=== PATIENT | female | born 1960 | race Caucasian/White ===

== ENCOUNTER 2016-06-26 13:16 | Inpatient (IN) | payer OTHER ==
[2016-06-26] MEDS ORDERED: NS 0.9% 1000 ML* 1,000 ML IV ONE (15:36)
[2016-06-26 16:26] LABS: Hematocrit 31 % (35-47); Hemoglobin 10.2 g/dl (12.0-16.0); Mean Corpuscular HGB Conc 33 g/dl (31-36); Mean Corpuscular Hemoglobin 31 pg (27-31); Mean Corpuscular Volume 93 fL (80-97); Mean Platelet Volume 10 um3 (7.4-10.4); Red Cell Distribution Width 23 % (10.5-15); White Blood Count 6.8 10^3/ul (3.5-10.8)
--- NOTE | 2016-06-26 16:27 | RAD ---
INDICATION: Hypoxia, tachycardia and possible pneumonia COMPARISON: Most recent comparison chest x-rays dated June 25, 2013 TECHNIQUE: Single AP portable view of the chest was obtained. FINDINGS: Image quality is compromised due to the relative inferiority of a portable chest x-ray. The heart and mediastinum exhibit normal size and contour. The lungs are grossly clear. There is no evidence of a large pleural effusion. Visualized bones are normal for the patient's age. IMPRESSION: No radiographic evidence for acute cardiopulmonary abnormality on this portable chest x-ray.
[2016-06-26 16:32] LABS: Add Diff/Slide Review? Slide Review Added; Comments Flag Yes
[2016-06-26 16:39] LABS: Albumin 3.8 g/dL (3.2-5.2); BUN/Creatinine Ratio 13.1 (8-20); EGFR African American 24.7 (>60); EGFR Non-African American 19.2 (>60); Globulin 4.2 g/dL (2-4); Potassium 3.4 mmol/L (3.5-5.0); Total Bilirubin 3.6 mg/dL (0.2-1.0)
[2016-06-26 16:48] LABS: Calcium 16.4 mg/dL (8.6-10.3)
[2016-06-26] MEDS ORDERED: NS 0.9% 1000 ML* 2,000 ML IV ONE (18:04)
[2016-06-26] MEDS ORDERED: Ondansetron INJ* 2 MG/ML VIAL IV PRN (18:10)
[2016-06-26] MEDS ORDERED: NS 0.9% 1000 ML* 1,000 ML IV SCH (18:15)
[2016-06-26] MEDS ORDERED: Calcitonin (Salmon) INJ* 200 UNITS/ML 2 ML VIAL SUBCUT ONE (18:16)
[2016-06-26] MEDS ORDERED: Zoledronic Acid* 4 MG in NS 0.9% 100 ML* 95 ML IVPB ONE (18:17)
[2016-06-26 18:19] LABS: Calcium (PTH Intact) 16.1 mg/dL (8.6-10.3)
[2016-06-26] MEDS ORDERED: NS 0.9% 100 ML* 100 ML ONE (18:25)
--- NOTE | 2016-06-26 19:22 | RAD ---
INDICATION: Acute kidney injury COMPARISON: CT abdomen pelvis dated May 13, 2016 that demonstrated mild left-sided hydronephrosis most likely related to sigmoid diverticulitis. TECHNIQUE: Real-time ultrasound examination of the bilateral kidneys including grayscale and Doppler color flow analysis. FINDINGS: Bilaterally the kidneys are normal in size and echogenicity. There are no hypervascular renal masses. There are no renal calculi or hydronephrosis identified. IMPRESSION: Normal ultrasound of the kidneys.
[2016-06-26 19:32] LABS: Urine Bacteria Absent (Absent); Urine Bilirubin Negative (Negative); Urine Glucose Negative (Negative); Urine Nitrite Negative (Negative)
[2016-06-26] MEDS ORDERED: PAMIDRONATE IVPB ONE (20:00)
[2016-06-26] MEDS ORDERED: NS 0.9% IVPB ONE (20:00)
[2016-06-26] MEDS: Gabapentin CAP(*) 100 MG PO PRN (20:17)
--- NOTE | 2016-06-26 21:16 | ED ---
Rock Betancourt Anna, scribed for Axel Can MD on 06/26/16 at 1537 . Lower Extremity - HPI Summary HPI Summary: Patient is a 55 y/o female coming to [facility] presenting status post ostomy one month ago. In April she was admitted here for complications from her diverticulitis before being transferred for her ostomy. She went to [facility] for rehabilitation but did not want to be there so went home. She had difficulty voiding and had a catheter at [facility] but reports that her urination is back to normal at this time. Her feet and legs have been intermittently painful since one month ago, and she has not been ambulating because of the pain. She has an abd wound healing following the surgery. She has had a decreased appetite and developed body weakness. She has lost at least 12 lbs since her surgery. Denies fever, new pains, PNA, UTI. Her daughter reports that the patients HR has been about 110 at baseline. Her history is significant for developmental disability. - History of Current Complaint Chief Complaint: EDGeneral Stated Complaint: POSS FAILURE TO THRIVE Time Seen by Provider: 06/26/16 15:17 Hx Obtained From: Patient, Family/Live Games Dealer - Accompanied by daughter, health care proxy Pain Intensity: 0 - Allergies/Home Medications Allergies/Adverse Reactions: Allergies Allergy/AdvReac Type Severity Reaction Status Date / Time No Known Allergies Allergy Verified 06/26/16 13:25 Home Medications: Home Medications Docusate Sodium [Colace] 100 mg PO DAILY 06/26/16 [History Confirmed 06/26/16] Gabapentin CAP(*) [Neurontin 100 mg CAP(*)] 100 mg PO TID PRN 06/26/16 [History Confirmed 06/26/16] PMH/Surg Hx/FS Hx/Imm Hx Previously Healthy: No - Immunosuppression Endocrine/Hematology History: Reports: Hx Anemia - aplastic anemia Denies: Hx Diabetes, Hx Thyroid Disease Cardiovascular History: Reports: Hx Hypercholesterolemia, Hx Hypertension - On medication Denies: Hx Deep Vein Thrombosis Respiratory History: Denies: Hx Asthma, Hx Chronic Obstructive Pulmonary Disease (COPD) GI History: Reports: Hx Diverticulosis - diverticulitis Denies: Hx Gastrointestinal Bleed, Hx Ulcer Musculoskeletal History: Reports: Hx Orthopedic Injury - L shoulder injury w/ surgery Denies: Hx Arthritis, Hx Osteoporosis Sensory History: Reports: Hx Contacts or Glasses Opthamlomology History: Reports: Hx Contacts or Glasses Psychiatric History: Reports: Hx Anxiety - situational, Hx Depression - Cancer History Hx Chemotherapy: No Hx Radiation Therapy: No - Surgical History Surgery Procedure, Year, and Place: shoulder, port Hx (removed) Infectious Disease History: Yes Infectious Disease History: Reports: Hx of Known/Suspected MRSA Denies: Hx Clostridium Difficile, Hx Hepatitis, Hx Human Immunodeficiency Virus (HIV), Hx Shingles, Hx Tuberculosis, Traveled Outside the [place] in Last 30 Days - Family History Known Family History: Positive: Hypertension, Diabetes - Social History Occupation: Disabled Lives: With Family Alcohol Use: None Substance Use Type: Reports: None Smoking Status (MU): Former Smoker Review of Systems Positive: Other - decreased appetite, unintentional weight loss. Negative: Fever Positive: other - difficulty voiding, since resolved Positive: Myalgia Positive: Other - Reported healing wound on abd Positive: Weakness All Other Systems Reviewed And Are Negative: Yes Physical Exam - Summary Physical Exam Summary: General: Comfortable, pleasant, generally alert, mildly diffusely weak HEENT: Mucosa extremely dry Neck: Soft, supple, no adenopathy, no edema Heart: No murmurs, rubs, gallops, HR 110. Pulses bilaterally symmetric. Lungs: Clear, breathing comfortably, no wheezes or rales Abd: Softly distended Extremities: No edema, no calf tenderness Skin: No rashes, no ulcerations Neuro: Alert & oriented x3 Psych: Logical, coherent Triage Information Reviewed: Yes Vital Signs On Initial Exam: Initial Vitals Temp Pulse Resp BP Pulse Ox 98.4 F 113 19 119/75 96 06/26/16 13:19 06/26/16 13:19 06/26/16 13:19 06/26/16 13:19 06/26/16 13:19 Vital Signs Reviewed: Yes Diagnostics - Vital Signs Vital Signs Temp Pulse Resp BP Pulse Ox 06/26/16 14:29 109 17 123/79 97 06/26/16 13:19 98.4 F 113 19 119/75 96 - Laboratory Lab Results: Lab Results 06/26/16 06/26/16 06/26/16 Range/Units 16:00 16:00 16:00 WBC 6.8 (3.5-10.8) 10^3/ul RBC 3.30 L (4.0-5.4) 10^6/ul Hgb 10.2 L (12.0-16.0) g/dl Hct 31 L (35-47) % MCV 93 (80-97) fL MCH 31 (27-31) pg MCHC 33 (31-36) g/dl RDW 23 H (10.5-15) % Plt Count 75 L (150-450) 10^3/ul MPV 10 (7.4-10.4) um3 Neut % (Auto) 77.6 (38-83) % Lymph % (Auto) 9.6 L (25-47) % [facility] % (Auto) 12.3 H (1-9) % Eos % (Auto) 0.3 (0-6) % Baso % (Auto) 0.2 (0-2) % Absolute Neuts (auto) 5.2 (1.5-7.7) 10^3/ul Absolute Lymphs (auto) 0.6 L (1.0-4.8) 10^3/ul Absolute Monos (auto) 0.8 (0-0.8) 10^3/ul Absolute Eos (auto) 0 (0-0.6) 10^3/ul Absolute Basos (auto) 0 (0-0.2) 10^3/ul Absolute Nucleated RBC 0 10^3/ul Nucleated RBC % 0 Hem Pathologist Commnt Pending Sodium 138 (133-145) mmol/L Potassium 3.4 L (3.5-5.0) mmol/L Chloride 91 L (101-111) mmol/L Carbon Dioxide 38 H (22-32) mmol/L Anion Gap 9 (2-11) mmol/L BUN 34 H (6-24) mg/dL Creatinine 2.60 H (0.51-0.95) mg/dL Est GFR ( Amer) 24.7 (>60) Est GFR (Non-Af Amer) 19.2 (>60) BUN/Creatinine Ratio 13.1 (8-20) Glucose 103 H (70-100) mg/dL Lactic Acid 1.0 (0.5-2.0) mmol/L Calcium 16.4 H* (8.6-10.3) mg/dL Total Bilirubin 3.60 H (0.2-1.0) mg/dL AST 30 (13-39) U/L ALT 10 (7-52) U/L Alkaline Phosphatase 84 (34-104) U/L Total Protein 8.0 (6.4-8.9) g/dL Albumin 3.8 (3.2-5.2) g/dL Globulin 4.2 H (2-4) g/dL Albumin/Globulin Ratio 0.9 L (1-3) PTH Intact (1.3-9.3) pmol/L Calcium (PTH Intact) (8.6-10.3) mg/dL 06/26/16 Range/Units 16:00 WBC (3.5-10.8) 10^3/ul RBC (4.0-5.4) 10^6/ul Hgb (12.0-16.0) g/dl Hct (35-47) % MCV (80-97) fL MCH (27-31) pg MCHC (31-36) g/dl RDW (10.5-15) % Plt Count (150-450) 10^3/ul MPV (7.4-10.4) um3 Neut % (Auto) (38-83) % Lymph % (Auto) (25-47) % [facility] % (Auto) (1-9) % Eos % (Auto) (0-6) % Baso % (Auto) (0-2) % Absolute Neuts (auto) (1.5-7.7) 10^3/ul Absolute Lymphs (auto) (1.0-4.8) 10^3/ul Absolute Monos (auto) (0-0.8) 10^3/ul Absolute Eos (auto) (0-0.6) 10^3/ul Absolute Basos (auto) (0-0.2) 10^3/ul Absolute Nucleated RBC 10^3/ul Nucleated RBC % Hem Pathologist Commnt Sodium (133-145) mmol/L Potassium (3.5-5.0) mmol/L Chloride (101-111) mmol/L Carbon Dioxide (22-32) mmol/L Anion Gap (2-11) mmol/L BUN (6-24) mg/dL Creatinine (0.51-0.95) mg/dL Est GFR ( Amer) (>60) Est GFR (Non-Af Amer) (>60) BUN/Creatinine Ratio (8-20) Glucose (70-100) mg/dL Lactic Acid (0.5-2.0) mmol/L Calcium (8.6-10.3) mg/dL Total Bilirubin (0.2-1.0) mg/dL AST (13-39) U/L ALT (7-52) U/L Alkaline Phosphatase (34-104) U/L Total Protein (6.4-8.9) g/dL Albumin (3.2-5.2) g/dL Globulin (2-4) g/dL Albumin/Globulin Ratio (1-3) PTH Intact 3.6 (1.3-9.3) pmol/L Calcium (PTH Intact) 16.1 H* (8.6-10.3) mg/dL Result Diagrams: 06/26/16 16:00 06/26/16 16:00 Lab Statement: Any lab studies that have been ordered have been reviewed, and results considered in the medical decision making process. - Radiology CXR Xray Interpretation: No Acute Changes Radiology Interpretation Completed By: Radiologist - IMPRESSION: No radiographic evidence for acute cardiopulmonary abnormality on this portable chest x-ray. Re-Evaluation - Re-Evaluation First Eval Re-Evaluation Time: 16:27 Change: Unchanged Comment: We questioned her as to her decision-making capacity and probed whether or not she understood the relationship of dangers at home potentially causing harm. We specifically asked about the latest incident of almost falling yesterday, and she did not seem to realize that falls could be dangerous. She perseverated, saying she "never falls" and "bad things never happen." Again, we asked her what she would have done should she have fallen and her daughter was not there to catch her. She states there is no way to get up, she simply would have "reached for the couch." She denies having life alert or a phone she carries on her person 24 hours a day and also could not explicitly express the relationships and the dangers of falling and injuring herself. Her daughter is present, who is her proxy, and she states that she highly suggests we admit the patient. The daughter who lives with her is very worried and said she "should not be home." The visiting nurse who visits three times a week initiated this and recommended that the patient be admitted. We referenced the consultation on 05/14/[address] Valderrama who did believe she had decision-making capacity. We would like to honor that if at all ethically possilbe. However, conditions of patients and decision-making capacities can change. At this time, I feel the patient could very well be putting herself in serious harm should she make the error of going home. There may be an element of anxiety and depression as well, which further muddies the water and complicates things. This is a difficult case , and the answers sometimes aren't easy to elucidate. However, I do feel that this is in the best interest of the pt. O2 sat on RA 99%. HR mid-90s w/o intervention. HR on last admission noted to be elevated as well. Lower Extremity Course/Dx - Course Assessment/Plan: She has been doing poorly at home according to the visiting nurse and both her doctors. She is a complicated patient with ongoing symptoms of depression, as well as chronic conditions and now an ostomy which she is apparently having trouble managing. She nearly had a fall yesterday. She apparently is very weak and is not eating well on her own. Her calcium was markedly elevated. This may be part of the problem or simply a lab error. - Diagnoses Provider Diagnoses: Hypercalcemia, PAULY (acute kidney injury), Weakness - Physician Notifications Discussed Care of Patient With: Dr. Miller (hospitalist) at 1702. Agrees to accept patient for admission. - Critical Care Time Critical Care Time: 30-74 min - 30 minutes Discharge - Discharge Plan Condition: Guarded Disposition: ADMITTED TO [facility] The documentation as recorded by the Rock roy Anna accurately reflects the service I personally performed and the decisions made by me, Axel Can MD.
[2016-06-26] MEDS: Gemfibrozil TAB* 600 MG PO SCH (21:59)
[2016-06-26] MEDS: Heparin VIAL(*) 5000 UNITS/ML VIAL (FIVE THOUSAND) SUBCUT SCH (22:01)
[2016-06-26] MEDS: cycloSPORINE Modified CAP(*) 100 MG PO SCH (22:03)
[2016-06-26 22:23] LABS: BUN/Creatinine Ratio 12.8 (8-20); EGFR African American 26.8 (>60); EGFR Non-African American 20.8 (>60); Potassium 2.9 mmol/L (3.5-5.0); Total Bilirubin 3.4 mg/dL (0.2-1.0)
[2016-06-26 22:26] LABS: Calcium 14.8 mg/dL (8.6-10.3)
--- NOTE | 2016-06-26 22:41 | HP ---
HISTORY AND PHYSICAL: DATE OF ADMISSION: 06/26/16 PRIMARY CARE PHYSICIAN: Gordo Johnson MD. CHIEF COMPLAINT: General decline. HISTORY OF PRESENT ILLNESS: Ms. Baker is a 55-year-old female with a past medical history of aplas tic anemia, hypertension, depression, hyperlipidemia, developmental delay, and relatively recent div erticulitis with phlegmon formation with surgery and ostomy placement in [facility] wh o presents to the hospital with a general decline. The patient seems a bit confused and extremely i rritated at my questioning. The majority of the history is obtained from the patient's daughter, Aminata ferrara. This is not the daughter that the patient lives with who is also developmentally delayed. Nicole states that the patient was discharged from [facility] and was at [facility] or rehabilitation and states that the surgery went well at the [facility] and at the end of the hospitalization, the patient had completed antibiotics and was eating and had a good appetite. Afte r being at [facility] for a few days, the patient checked out early, somewhere around June 04. Unfortunately, the patient's daughter who I was speaking with kristyn, Nicole, was out of town at that time and did not have any input. She states that since her mother has been home, she has been slowly declining. She states despite VNS coming multiple times a week to check the patient's ostomy , it seems that she is unable to care for herself. She has been having very little p.o. intake, bot h food and drink, and suspects that her mother has lost a significant amount of weight as well. Tracey arriaza states that the patient was 154 pounds just prior to the surgery, states that 10 days ago at a doctor's appointment, she was 140 pounds and now seems to be 134 pounds here in our emergency depar tment. The patient has also been extremely weak and has had a lot of difficulty getting around the house and she is mostly not walking at this point. The patient herself denies any fever, chills, ab dominal pain, nausea, vomiting, dysuria. Has had decreased output from her ostomy. Denies any back pain. Daughter, Nicole, states that it is difficult to tell if the patient is more confused than usual as her baseline is not great. In the emergency department, routine blood work showed that th e patient had a calcium of 16.4 and acute on chronic renal failure and the hospitalist service was c onsulted to consider the patient for admission. PAST MEDICAL HISTORY: 1. Aplastic anemia, currently on cyclosporin and Promacta. 2. Hypertension. 3. Depression. 4. Hyperlipidemia. 5. Diverticulitis. PAST SURGICAL HISTORY: 1. Ostomy placement for diverticulitis and presumed partial colectomy. 2. Left shoulder surgery. HOME MEDICATIONS: 1. Gabapentin 100 mg 3 times daily with an additional 200 mg at night as needed. 2. Colace 100 mg by mouth 3 times daily. 3. Gemfibrozil 600 mg by mouth 2 times daily. 4. Cyclosporin 100 mg by mouth 2 times daily. 5. Valacyclovir 500 mg by mouth daily. 6. Promacta 75 mg by mouth daily. ALLERGIES: The patient reports no known drug allergies. FAMILY HISTORY: Significant for her father with CAD, mother with diabetes and unknown cancer. SOCIAL HISTORY: The patient is a former smoker, quit at the age of 31. Denies any alcohol or illic it drug use. Lives at home with her developmentally disabled daughter. Her other daughter who is h ere, Nicole, is her decision maker. REVIEW OF SYSTEMS: A 12-point review of systems negative except for that as noted in the HPI. PHYSICAL EXAMINATION GENERAL: The patient is a middle-aged female, appears older than stated age, lying in bed in no apparent distress. VITAL SIGNS: On admission, temperature 98.4, heart rate of 113, respiratory rate of 19, O2 saturati on 96% on room air; however, the patient is currently needing OxyMask at 2 L. Blood pressure 119/75 . HEENT: Dry mucous membrane. Dry chocolate pudding on the patient's lips and tongue. Pupils equal, round, reactive to light and accommodation. NECK: No cervical adenopathy. LUNGS: Clear to auscultation bilaterally. No wheezes, rales, or rhonchi. CARDIOVASCULAR: Regular rate and rhythm. S1 and S2 present. No murmurs, gallops, or rubs. ABDOMEN: Soft, nontender, nondistended. The patient has a midline scar that is well healed for the most part. There is a small area in the periumbilical region that is still open and packed without drainage. Ostomy is in place and appears clean, dry, and intact with a minimal amount of stool in it. EXTREMITIES: No cyanosis, clubbing, or edema. Feet are tender to palpation. NEUROLOGIC: The patient is alert, oriented to self, place. Had difficulty with the year, was able to tell me the month, but not the day of the week. Very agitated. No focal neurological deficits. LABS AND DIAGNOSTICS: White blood cell count of 6.8, hematocrit of 31, platelets of 75. Sodium of 138, potassium of 3.4, chloride of 91, carbon dioxide of 38, BUN of 34, creatinine of 2.6, glucose of 103, lactic acid of 1.0, calcium of 16.4. Total bilirubin of 3.6. AST of 30, ALT of 10, alk phos of 84. Albumin of 3.8. Chest x-ray personally reviewed shows no acute disease. EKG is not yet done and we will order. ASSESSMENT AND PLAN: Hypercalcemia in the setting of general decline, decreased p.o. intake, acute kidney injury on chronic kidney disease in a 55-year-old female with a past medical history of aplas tic anemia, on immunosuppressant medications; hypertension; depression; hyperlipidemia; and recent d iverticulitis with presumed partial colectomy and ostomy placement. 1. Hypercalcemia: The patient has severe hypercalcemia. It seems that she has always had mild to moderate with recent levels in the 10 to 12 range; however, never as high as 16. We will check a st at ionized calcium. We will also check a PTH. The patient received 1 L of IV fluids in the emergen cy department. We will give another 2 L bolus now and run fluids overnight at 200 cc an hour. I lloyd ve also ordered calcitonin and zoledronic acid to try to lower the calcium. Hold off on any diureti cs for now. We will also check PTH-related peptide, vitamin D levels, SPEP, UPEP. We will recheck serum calcium now to ensure it is elevated and again tomorrow. 2. Acute kidney injury on chronic kidney disease: Suspect this is likely due to the patient's sign ificant dehydration. Creatinine is 2.6, seems that her baseline is around 1.3 to 1.5. We will chec k renal ultrasound with her recent ureteral issues with the inflammation from the diverticulitis to ensure there is no hydronephrosis. We will check a urine sodium and urine creatinine as well. Monit or her BMP daily. We will place a Browne for strict I's and O's. 3. Hyperbilirubinemia: Total bilirubin is 3.6. The patient has no right upper quadrant pain and t he rest of her LFTs are normal. We will fractionate the bilirubin and recheck in the morning. Hold on any imaging for now. 4. Aplastic anemia: Continue the patient's home cyclosporin, Promacta, and valacyclovir. 5. Hyperlipidemia: Continue the patient's home gemfibrozil. 6. DVT prophylaxis: Heparin subcu. 7. Disposition: It seems that the patient is not safe at home. She is living with a daughter that is developmentally delayed and does not seem to be able to help out as much as the patient needs, e specially now that she has an ostomy. I suspect she will likely need at least short term, if not lo ng term higher level of care. I placed a social work consult and a PT consult. 8. Code status: The patient is a full code. TIME SPENT: Total time spent on this admission, 55 minutes with over half the time spent face-to-fa ce with the patient counseling and coordinating care. [id number]/CPS #: [id number]
[2016-06-26] MEDS ORDERED: HYDROmorphone INJ* 1 MG/ML CARPUJECT SYRINGE IV ONE (23:50)
[2016-06-27] MEDS: NS 0.9% 1000 ML* 1,000 ML IV SCH ×2 (02:28→08:22)
[2016-06-27] MEDS: Heparin VIAL(*) 5000 UNITS/ML VIAL (FIVE THOUSAND) SUBCUT SCH ×3 (05:05→21:13)
[2016-06-27 08:01] LABS: Hematocrit 28 % (35-47); Mean Corpuscular HGB Conc 32 g/dl (31-36); Mean Corpuscular Hemoglobin 31 pg (27-31); Mean Corpuscular Volume 96 fL (80-97); Mean Platelet Volume 9 um3 (7.4-10.4); Red Blood Count 2.93 10^6/ul (4.0-5.4); Red Cell Distribution Width 24 % (10.5-15); White Blood Count 6.2 10^3/ul (3.5-10.8)
[2016-06-27 08:02] LABS: Add Diff/Slide Review? Slide Review Added; Comments Flag Yes
[2016-06-27 08:11] LABS: Albumin 3.3 g/dL (3.2-5.2); BUN/Creatinine Ratio 12.5 (8-20); Calcium 12.7 mg/dL (8.6-10.3); EGFR African American 31.9 (>60); EGFR Non-African American 24.8 (>60); Globulin 3.5 g/dL (2-4); Potassium 3.1 mmol/L (3.5-5.0); Total Bilirubin 2.8 mg/dL (0.2-1.0); Total Protein 6.8 g/dL (6.4-8.9)
[2016-06-27] MEDS: Gemfibrozil TAB* 600 MG PO SCH ×2 (09:00→21:07)
[2016-06-27] MEDS ORDERED: Docusate CAP* 100 MG PO SCH (09:00)
[2016-06-27] MEDS: ValACYclovir (*) 500 MG TAB PO SCH (09:00)
[2016-06-27 09:02] LABS: Direct Bilirubin 1.5 mg/dL (0.03-0.18)
[2016-06-27] MEDS: cycloSPORINE Modified CAP(*) 100 MG PO SCH ×2 (09:03→21:07)
[2016-06-27] MEDS: ELTROMBOPAG 75 MG PO SCH (09:03)
[2016-06-27] MEDS: Gabapentin CAP(*) 100 MG PO PRN ×3 (09:15→22:40)
[2016-06-27] MEDS: Potassium Chlor TAB* 20 MEQ TAB.ER PO SCH ×3 (13:46→17:56)
--- NOTE | 2016-06-27 14:03 | PN ---
Subjective Date of Service: 06/27/16 Interval History: Patient seen early this afternoon. Has not been taking much PO. Denies pain, discomfort, SOB. Had tennis-ball sized hard stool that dislodged her ostomy. Erroneous temperature this AM, not febrile. Family History: Unchanged from Admission Social History: Unchanged from Admission Past Medical History: Unchanged from Admission Objective Active Medications: Cyclosporine (Modified) (Neoral Cap(*)) 100 mg PO BID SONNY Docusate Sodium (Colace Cap*) 100 mg PO DAILY SONNY Eltrombopag (Promacta (Nf)) 75 mg PO DAILY SONNY Gabapentin (Neurontin Cap(*)) 100 mg PO TID PRN Gemfibrozil (Lopid Tab*) 600 mg PO BID SONNY Heparin Sodium (Porcine) (Heparin Vial(*)) 5,000 units SUBCUT Q8HR SONNY Sodium Chloride (Ns 0.9% 1000 Ml*) 1,000 mls @ 200 mls/hr IV PER RATE SONNY Ondansetron HCl (Zofran Inj*) 4 mg IV Q4H PRN Polyethylene Glycol/Electrolytes (Miralax*) 17 gm PO DAILY SONNY Potassium Chloride (Klor Con Er Tab*) 40 meq PO Q2H SONNY Senna (Senokot Tab*) 1 tab PO DAILY SONNY Valacyclovir HCl (Valtrex 500 Mg (*)) 500 mg PO DAILY [facility] Vital Signs 06/26/16 06/26/16 06/26/16 18:00 19:00 20:17 Temperature Pulse Rate 93 99 Respiratory 13 14 18 Rate Blood Pressure 131/92 150/87 (mmHg) O2 Sat by Pulse 100 100 Oximetry 06/27/16 06/27/16 06/27/16 09:15 11:15 11:20 Temperature 101.8 F Pulse Rate 100 Respiratory 15 18 16 Rate Blood Pressure 131/85 (mmHg) O2 Sat by Pulse 93 Oximetry Oxygen Devices in Use Now: None Appearance: Middle-aged, F, laying in bed in NAD Eyes: No Scleral Icterus Ears/Nose/Mouth/Throat: - - Dry MM Neck: NL Appearance and Movements; NL JVP Respiratory: Symmetrical Chest Expansion and Respiratory Effort, Clear to Auscultation Cardiovascular: NL Sounds; No Murmurs; No JVD, - - Mild tachycardia Abdominal: - - Soft, non-tender, non-distended, midline incision, dressing place , ostomy without pouch in place, no signs of infection Lymphatic: No Cervical Adenopathy Extremities: No Edema Skin: No Rash or Ulcers Neurological: - - Alert, oriented, no focal deficits Result Diagrams: 06/27/16 07:38 06/27/16 07:38 Additional Lab and Data: Assess/Plan/Problems-Billing Assessment: Hypercalcemia, PAULY on CKD, FTT in a 55 yo F with hx of aplastic anemia on immunosuppressants, depression, HLD, recent diverticulitis with phlegmon and partial colectomy with ostomy placement - Patient Problems (1) Hypercalcemia Current Visit: Yes Comment: S/P calcitonin and pamidoronate. Continue aggressive IVF at 200 cc/hr. PTH WNL, 25-OH WNL. PTHrP, SPEP, UPEP pending. Calcium trending down closer to patient's baseline. (2) PAULY (acute kidney injury) Current Visit: Yes Comment: BUN/creatinine improving with IVF. Continue to monitor daily. Continue doss catheter for strict I/O. Renal US unremarkable. (3) Hyperbilirubinemia Current Visit: Yes Comment: Tbili improving, hold on imaging. Fractionate. (4) Aplastic anemia Current Visit: No Comment: continue cyclosporine & eltrombopag (5) HLD (hyperlipidemia) Current Visit: Yes Comment: Continue gemfibrozil (6) Failure to thrive Current Visit: Yes Comment: Will check prealbumin. Patient says "I wish everyone would stop trying to force food down my throat". Consider palliative care consult pending on how the next days go Status and Disposition: Will need MOO
[2016-06-27] MEDS: Senna TAB PO SCH (15:27)
[2016-06-28] MEDS: Gabapentin CAP(*) 100 MG PO PRN ×2 (04:30→14:26)
[2016-06-28 05:52] LABS: Hematocrit 28 % (35-47); Hemoglobin 9.2 g/dl (12.0-16.0); Mean Corpuscular HGB Conc 33 g/dl (31-36); Mean Corpuscular Hemoglobin 31 pg (27-31); Mean Corpuscular Volume 92 fL (80-97); Mean Platelet Volume 9 um3 (7.4-10.4); Red Blood Count 2.99 10^6/ul (4.0-5.4); White Blood Count 6.3 10^3/ul (3.5-10.8)
[2016-06-28 06:04] LABS: Add Diff/Slide Review? Slide Review Added; Comments Flag Yes; Red Cell Distribution Width 23 % (10.5-15)
[2016-06-28 06:07] LABS: BUN/Creatinine Ratio 11.6 (8-20); EGFR Non-African American 32.6 (>60); Globulin 3.4 g/dL (2-4); Potassium 3.6 mmol/L (3.5-5.0); Total Bilirubin 3.5 mg/dL (0.2-1.0); Total Protein 6.4 g/dL (6.4-8.9)
[2016-06-28] MEDS: Heparin VIAL(*) 5000 UNITS/ML VIAL (FIVE THOUSAND) SUBCUT SCH ×3 (06:29→21:08)
--- NOTE | 2016-06-28 10:32 | PN ---
Progress Note - Progress Note SOAP: ID: 55 year old with long standing aplastic anemia, stable on cyclosporine and eltrombopag. Course c/b diverticulitis and abscess s/p colostomy. Now admitted hyperglycemia. Subjective: []Feels very poorly. Stomach hurts and not eating. No other pain. No nausea today. Frustrated and not willing to answer very many questions. She is oriented to [facility] and month, not day. Does not understand why she is in hospital other then stomach hurts. Cyclosporine (Modified) (Neoral Cap(*)) 100 mg PO BID [facility] Last Admin: 06/27/16 21:07 Dose: 100 mg Docusate Sodium (Colace Cap*) 100 mg PO DAILY [facility] Eltrombopag (Promacta (Nf)) 75 mg PO DAILY [facility] Last Admin: 06/27/16 09:03 Dose: 75 mg Gabapentin (Neurontin Cap(*)) 100 mg PO TID PRN PRN Reason: PAIN Last Admin: 06/28/16 04:30 Dose: 100 mg Gemfibrozil (Lopid Tab*) 600 mg PO BID [facility] Last Admin: 06/27/16 21:07 Dose: 600 mg Heparin Sodium (Porcine) (Heparin Vial(*)) 5,000 units SUBCUT Q8HR [facility] Last Admin: 06/28/16 06:29 Dose: 5,000 units Sodium Chloride (Ns 0.9% 1000 Ml*) 1,000 mls @ 200 mls/hr IV PER RATE [facility] Last Admin: 06/27/16 08:22 Dose: 200 mls/hr Ondansetron HCl (Zofran Inj*) 4 mg IV Q4H PRN PRN Reason: NAUSEA/VOMITING Polyethylene Glycol/Electrolytes (Miralax*) 17 gm PO DAILY [facility] Senna (Senokot Tab*) 1 tab PO DAILY [facility] Last Admin: 06/27/16 15:27 Dose: 1 tab Valacyclovir HCl (Valtrex 500 Mg (*)) 500 mg PO DAILY [facility] PRN Reason: Protocol Last Admin: 06/27/16 09:00 Dose: 500 mg Objective: [] Vital Signs Temp Pulse Resp BP Pulse Ox 98.7 F 104 18 139/94 96 06/28/16 03:50 06/28/16 03:50 06/28/16 06:30 06/28/16 03:50 06/28/16 03:50 HEENT - Pale and dried blood on teeth, lips. No clear oral lesions, no thrush CTA RRR S1S2, Tachy Has BS, liquid stool in colostomy, tender but no rebound. Could not feel spleen but exam limited. Ext - no edema Neuo - as above and gross non focal. Assessment: [] 55 year old with long history of aplastic anemia and hypercacemia. PTH is suppressed, hypercalcemia maybe secondary to aplastic anemia, other cancer. Plan: []1. Hypercalcemia. Improving on IVF. Zometa 4 mg IV x 1. Give known renal insufficiency, support with IVF. Has not needed lasix to date. Reviewed CT from 04/2016 and no bone lesions, agree with SPEP. 2. Mental status change. I do not know her baseline, follow as Ca improves. 3. Aplastic anemia. Continue cyclosporine and Promacta today. Counts stable. Will likely need another bone marrow biopsy. Can be done as outpatient. 4. Disp. NH support, PT in hospital 5. GI. No active infection, colostomy with stool.
[2016-06-28] MEDS: Polyethylene Glycol 3350* 17 GM PACKET PO SCH (10:43)
[2016-06-28] MEDS: ELTROMBOPAG 75 MG PO SCH (10:44)
[2016-06-28] MEDS: ValACYclovir (*) 500 MG TAB PO SCH (10:44)
[2016-06-28] MEDS: Docusate CAP* 100 MG PO SCH (10:45)
[2016-06-28] MEDS: Senna TAB PO SCH (10:45)
[2016-06-28] MEDS: cycloSPORINE Modified CAP(*) 100 MG PO SCH ×3 (10:45→21:07)
[2016-06-28] MEDS: Gemfibrozil TAB* 600 MG PO SCH ×2 (10:45→21:02)
[2016-06-28] MEDS ORDERED: Zoledronic Acid* 4 MG in NS 0.9% 100 ML* 95 ML IVPB ONE (10:48)
[2016-06-28] MEDS: NS 0.9% 1000 ML* 1,000 ML IV SCH (12:25)
[2016-06-28] MEDS: Acetaminophen TAB* 325 MG PO PRN (14:27)
[2016-06-28] MEDS: Metoprolol Tartrate TAB* 25 MG PO SCH ×2 (21:02→21:09)
[2016-06-28] MEDS ORDERED: Haloperidol INJ IV/IM* 5 MG/ML AMP IV SLOW PU PRN (22:37)
[2016-06-29] MEDS: NS 0.9% 1000 ML* 1,000 ML IV SCH ×4 (01:54→21:54)
[2016-06-29] MEDS: Heparin VIAL(*) 5000 UNITS/ML VIAL (FIVE THOUSAND) SUBCUT SCH ×3 (06:01→22:02)
[2016-06-29] MEDS: ELTROMBOPAG 75 MG PO SCH (08:37)
[2016-06-29] MEDS: ValACYclovir (*) 500 MG TAB PO SCH (08:37)
[2016-06-29] MEDS: Senna TAB PO SCH (08:37)
[2016-06-29] MEDS: Docusate CAP* 100 MG PO SCH (08:37)
[2016-06-29] MEDS: cycloSPORINE Modified CAP(*) 100 MG PO SCH ×2 (08:37→21:56)
[2016-06-29] MEDS: Gemfibrozil TAB* 600 MG PO SCH (08:37)
[2016-06-29] MEDS: Metoprolol Tartrate TAB* 25 MG PO SCH ×2 (08:37→21:57)
[2016-06-29] MEDS: Polyethylene Glycol 3350* 17 GM PACKET PO SCH (08:37)
--- NOTE | 2016-06-29 09:29 | PN ---
Progress Note - Progress Note SOAP: Subjective: very confused this am. refused all labs and am meds. thinks she is at [facility] and it is 1953. Objective: Vital Signs Temp Pulse Resp BP Pulse Ox 99.3 F 116 20 140/99 99 06/28/16 14:44 06/28/16 20:27 06/28/16 20:27 06/28/16 20:27 06/28/16 20:27 lying on side, slightly slurred speech but dry mouth refusing exam labs pending: refused this am Acetaminophen (Tylenol Tab*) 650 mg PO Q4H PRN PRN Reason: PAIN Last Admin: 06/28/16 14:27 Dose: 650 mg Cyclosporine (Modified) (Neoral Cap(*)) 100 mg PO BID [facility] Last Admin: 06/29/16 08:37 Dose: Not Given Docusate Sodium (Colace Cap*) 100 mg PO DAILY [facility] Last Admin: 06/29/16 08:37 Dose: Not Given Eltrombopag (Promacta (Nf)) 75 mg PO DAILY [facility] Last Admin: 06/29/16 08:37 Dose: Not Given Gabapentin (Neurontin Cap(*)) 100 mg PO TID PRN PRN Reason: PAIN Last Admin: 06/28/16 14:26 Dose: 100 mg Gemfibrozil (Lopid Tab*) 600 mg PO BID [facility] Last Admin: 06/29/16 08:37 Dose: Not Given Haloperidol Lactate (Haldol Inj Iv/Im*) 1 mg IV SLOW PU Q2H PRN PRN Reason: AGITATION Heparin Sodium (Porcine) (Heparin Vial(*)) 5,000 units SUBCUT Q8HR [facility] Last Admin: 06/29/16 06:01 Dose: Not Given Sodium Chloride (Ns 0.9% 1000 Ml*) 1,000 mls @ 200 mls/hr IV PER RATE [facility] Last Admin: 06/29/16 08:00 Dose: 200 mls/hr Metoprolol Tartrate (Lopressor Tab*) 25 mg PO BID [facility] Last Admin: 06/29/16 08:37 Dose: Not Given Ondansetron HCl (Zofran Inj*) 4 mg IV Q4H PRN PRN Reason: NAUSEA/VOMITING Polyethylene Glycol/Electrolytes (Miralax*) 17 gm PO DAILY [facility] Last Admin: 06/29/16 08:37 Dose: Not Given Senna (Senokot Tab*) 1 tab PO DAILY [facility] Last Admin: 06/29/16 08:37 Dose: Not Given Trazodone HCl (Desyrel Tab*) 50 mg PO BEDTIME PRN PRN Reason: SLEEP Valacyclovir HCl (Valtrex 500 Mg (*)) 500 mg PO DAILY [facility] PRN Reason: Protocol Last Admin: 06/29/16 08:37 Dose: Not Given Assessment: 55 yo F w h/o aplastic anemia and recent colostomy for perforated diverticulitis presenting with weight loss, poor PO intake and confusion and found to have hypercalcemia and acute renal failure. She is still quite off this am. She does have a developmental delay at baseline but is by report from my office, usually oriented. She is refusing labs this am, but we will work to reorient and try to convince her. I would also like to check a stat head CT if she allows to rule out intracranial process. Toxic metabolic encephalopathy: -haldol as needed for agitation -stat head CT -close monitoring -hold neurontin, ?contributing given renal failure Hypercalcemia: unclear etiology, will likely need bone marrow biopsy in near future -cont IVFs -if labs done and calcium still >11 will give additional dose of zometa today aplastic anemia: cont promacta and cyclosporine, refusing this am check cyclosporine level full code close observation for agitation and behavior, discussed with nursing
[2016-06-29 10:14] LABS: Hematocrit 27 % (35-47); Hemoglobin 8.9 g/dl (12.0-16.0); Mean Corpuscular HGB Conc 33 g/dl (31-36); Mean Corpuscular Hemoglobin 31 pg (27-31); Mean Corpuscular Volume 94 fL (80-97); Mean Platelet Volume 9 um3 (7.4-10.4); Red Cell Distribution Width 23 % (10.5-15); White Blood Count 7.8 10^3/ul (3.5-10.8)
[2016-06-29 10:15] LABS: Comments Flag Yes
[2016-06-29 10:16] LABS: Add Diff/Slide Review? Slide Review Added
--- NOTE | 2016-06-29 10:39 | RAD ---
HISTORY: Altered mental status COMPARISONS: December 12, 2015 TECHNIQUE: Multiple contiguous axial CT scans were obtained of the head without intravenous contrast. FINDINGS: HEMORRHAGE/INFARCT: There is no hemorrhage or acute infarct. MASSES/SHIFT: There is no mass or shift. EXTRA-AXIAL SPACES: There are no extra-axial fluid collections. SULCI AND VENTRICLES: The sulci and ventricles are normal in size and position for the patient's stated age. CEREBRUM: There are no focal parenchymal abnormalities. BRAINSTEM: There are no focal parenchymal abnormalities. CEREBELLUM: There are no focal parenchymal abnormalities. VESSELS: The vessels are grossly normal. PARANASAL SINUSES: The paranasal sinuses are clear. ORBITS: The orbits are unremarkable. BONES AND SOFT TISSUE: No bone or soft tissue abnormalities are noted. OTHER: None IMPRESSION: NO ACUTE INTRACRANIAL PATHOLOGY.
[2016-06-29 11:01] LABS: Immature Granulocytes 9 % (0-9); Metamyelocytes % 4 % (0-2); Microcytosis 1+; Myelocytes % 1 % (0-1); Neutrophil % 68 % (38-83)
[2016-06-29 11:06] LABS: ALT 7 U/L (7-52); AST 32 U/L (13-39); Alkaline Phosphatase 66 U/L (34-104); Anion Gap 10 mmol/L (2-11); BUN/Creatinine Ratio 10.9 (8-20); Blood Urea Nitrogen 15 mg/dL (6-24); CO2 Carbon Dioxide 17 mmol/L (22-32); Calcium 9.4 mg/dL (8.6-10.3); Chloride 112 mmol/L (101-111); EGFR African American 51.2 (>60); EGFR Non-African American 39.8 (>60); Globulin 3.5 g/dL (2-4); Glucose 77 mg/dL (70-100); Magnesium 1.1 mg/dL (1.9-2.7); Sodium 139 mmol/L (133-145); Total Protein 6.5 g/dL (6.4-8.9)
[2016-06-29 11:12] LABS: Hypochromasia 1+
[2016-06-29 11:14] LABS: Phosphorus < 1.0 mg/dL (2.5-5.0)
[2016-06-29] MEDS ORDERED: Magnesium Sulf 4 GM/100 ML IV* 4,000 MG/100 ML BAG IVPB ONE (11:27)
--- NOTE | 2016-06-29 11:35 | RAD ---
HISTORY: Hyperbilirubinemia COMPARISONS: CT dated May 13, 2016 TECHNIQUE: Multiple transverse and longitudinal ultrasound images were obtained of the right upper quadrant of the abdomen using grayscale and color Doppler imaging. FINDINGS: LIVER: The liver is diffusely echogenic and coarse in echotexture, with decreased acoustic transmission. The liver is otherwise normal in shape, size, and contour. There is normal hepatopedal flow of the portal vein on Doppler imaging. BILIARY TREE: There is no intrahepatic or extrahepatic biliary dilatation. The common duct measures 0.5 cm. GALLBLADDER: The gallbladder is distended. Multiple shadowing echogenic foci consistent with gallstones are noted. There is no gallbladder wall thickening, pericholecystic fluid, or sonographic Monroe sign. PANCREAS: The head of the pancreas is unremarkable. The tail of the pancreas is not well visualized secondary to overlying bowel gas. RIGHT KIDNEY: The right kidney is normal in shape, size, contour, and echogenicity. There is no hydronephrosis or nephrolithiasis. The right kidney measures 1.2 x 5 x 5 cm. AORTA AND IVC: The aorta and IVC are unremarkable. FLUID: There are no pleural effusions. There is no free fluid within the hepatorenal recess. OTHER FINDINGS: None. IMPRESSION: 1. FATTY INFILTRATION OF LIVER. 2. CHOLELITHIASIS WITHOUT SONOGRAPHIC FEATURES OF ACUTE CHOLECYSTITIS.
[2016-06-29] MEDS ORDERED: Potassium Phosphate IV* 15 MMOLE in NS 0.9% 250 ML* 250 ML IVPB ONE (12:00)
[2016-06-29] MEDS ORDERED: Potassium Phosphate IV* 10 MMOLE in NS 0.9% 250 ML* 250 ML IVPB ONE (12:00)
[2016-06-29 14:41] LABS: Albumin 3.2 g/dL (3.4-4.7); Total Protein(PEP) 7.4 g/dL (6.3 - 7.9)
[2016-06-29 14:41] LABS: Albumin 2.9 g/dL (3.4-4.7); Gamma Globulin 0.9 g/dL (0.6-1.6); Total Protein(PEP) 6.6 g/dL (6.3 - 7.9)
[2016-06-29] MEDS: Potassium & Sodium Phos 250MG* = 1 PACKET PO SCH ×3 (15:28→21:54)
[2016-06-29 17:37] LABS: Albumin 36 %; Gamma Globulin 12 %
[2016-06-30] MEDS: NS 0.9% 1000 ML* 1,000 ML IV SCH ×2 (03:31→10:14)
[2016-06-30] MEDS: Heparin VIAL(*) 5000 UNITS/ML VIAL (FIVE THOUSAND) SUBCUT SCH (05:22)
[2016-06-30 06:03] LABS: Comments Flag Yes; Hematocrit 23 % (35-47); Hemoglobin 7.3 g/dl (12.0-16.0); Mean Corpuscular HGB Conc 32 g/dl (31-36); Mean Corpuscular Hemoglobin 30 pg (27-31); Mean Corpuscular Volume 93 fL (80-97); Mean Platelet Volume 9 um3 (7.4-10.4); Red Blood Count 2.42 10^6/ul (4.0-5.4); White Blood Count 6.9 10^3/ul (3.5-10.8)
[2016-06-30 06:04] LABS: Add Diff/Slide Review? Slide Review Added; Red Cell Distribution Width 24 % (10.5-15)
--- NOTE | 2016-06-30 08:59 | RAD ---
HISTORY: Hemoptysis COMPARISONS: None TECHNIQUE: Multiple contiguous axial CT scans of the chest were obtained without intravenous contrast. Coronal and sagittal multiplanar reformations are also submitted for review. FINDINGS: The study is limited by the lack of intravenous contrast. This limits evaluation of the solid organs and vasculature. Evaluation is also limited by patient breathing motion artifact. NECK AND THYROID: The lower neck and thyroid are unremarkable. CHEST WALL: There is no lower cervical, axillary, or supraclavicular lymphadenopathy by size criteria. HEART AND PERICARDIUM: The heart is unremarkable. AORTA AND PULMONARY VASCULATURE: The aorta and pulmonary vasculature are normal. MEDIASTINUM: There are multiple mediastinal lymph nodes in the paratracheal space and subcarinal space and prevascular space. The largest measures 1.1 cm in short axis. LIZETH: Evaluation of the lizeth is limited by the lack of intravenous contrast. There is no obvious hilar lymphadenopathy by size criteria. AIRWAY AND ESOPHAGUS: The airway is unremarkable, without endobronchial filling defect. The esophagus is grossly normal. LUNG PARENCHYMA: There is patchy ground less opacification of the right upper lobe PLEURA: No pleural abnormalities are noted. UPPER ABDOMEN: There is fatty infiltration of the liver. BONES AND SOFT TISSUES: Mild degenerative changes are noted OTHER: None. IMPRESSION: 1. PROMINENT AND MILDLY ENLARGED MEDIASTINAL LYMPH NODES. 2. PATCHY AIRSPACE DISEASE OF THE RIGHT UPPER LUNG. 3. FATTY INFILTRATION OF THE LIVER
--- NOTE | 2016-06-30 10:05 | PN ---
Progress Note - Progress Note SOAP: Subjective: clearer mentally today though a little more hostile. has no recollection of events of yesterday. reports severe foot pain for several months (though reports since she was in a hospital in [facility] which makes no sense to me). + hemoptysis for days. denies any suicidal ideations today. denies abdominal pain. Objective: Vital Signs Temp Pulse Resp BP Pulse Ox 98.6 F 89 16 119/78 98 06/30/16 03:29 06/30/16 03:29 06/30/16 03:29 06/30/16 03:29 06/30/16 03:29 sitting up in nad perr op moist CTA bl s1 s2 nl soft nt +bs, clean ostomy trace pedal edema, good pulses, variably yells in pain when tops of feet palpated oriented to hospital, 2012, and name grossly nonfocal Laboratory Results - last 24 hr 06/26/16 06/27/16 06/27/16 21:55 00:20 07:38 WBC RBC Hgb Hct MCV MCH MCHC RDW Plt Count MPV Immature Gran % (Auto) Neut % (Auto) Lymph % (Auto) [place] % (Auto) Eos % (Auto) Baso % (Auto) Absolute Neuts (auto) Absolute Lymphs (auto) Absolute Monos (auto) Absolute Eos (auto) Absolute Basos (auto) Absolute Nucleated RBC Neutrophils % Band Neutrophils % Lymphocytes % Monocytes % Metamyelocytes % Myelocytes % Nucleated RBC % Normal RBC Morphology Hypochromasia Microcytosis INR (Anticoag Therapy) APTT Sodium Potassium Chloride Carbon Dioxide Anion Gap BUN Creatinine Est GFR ( Amer) Est GFR (Non-Af Amer) BUN/Creatinine Ratio Glucose Calcium Phosphorus Magnesium Total Bilirubin AST ALT Alkaline Phosphatase Total Protein Total Protein (PEP) 7.4 6.6 Albumin Albumin (PEP) 3.2 L 2.9 L Globulin Albumin/Globulin Ratio Albumin/Globulin (PEP) 0.76 0.76 Xsqaa-2-Shgldooib 0.6 H 0.6 H Zkdhv-7-Ikvmfzida 1.2 H 1.1 H Ksby-4-Ajsglhsp 1.4 H 1.2 Gamma Globulins 1.0 0.9 PEP Impression See comment See comment See comment Ur Random Albumin % 36 U Random Total Protein 94 Ur Albumin/Globulin 0.55 U Random x-7-Upkopepv % 9 U Random s-5-Znjxlagk % 23 U Random b-Globulin % 20 U Random Gamma Glob % 12 06/29/16 06/29/16 06/30/16 09:42 09:47 05:47 WBC 7.8 6.9 RBC 2.90 L 2.42 L Hgb 8.9 L 7.3 L Hct 27 L 23 L MCV 94 93 MCH 31 30 MCHC 33 32 RDW 23 H 24 H Plt Count 33 L D 25 L MPV 9 9 Immature Gran % (Auto) 9 Neut % (Auto) 78.5 80.0 Lymph % (Auto) 9.7 L 8.8 L [place] % (Auto) 11.2 H 10.5 H Eos % (Auto) 0.3 0.5 Baso % (Auto) 0.3 0.2 Absolute Neuts (auto) 6.1 5.6 Absolute Lymphs (auto) 0.8 L 0.6 L Absolute Monos (auto) 0.9 H 0.7 Absolute Eos (auto) 0 0 Absolute Basos (auto) 0 0 Absolute Nucleated RBC 0.01 0.02 Neutrophils % 68 Band Neutrophils % 4 Lymphocytes % 15 L Monocytes % 8 Metamyelocytes % 4 H Myelocytes % 1 Nucleated RBC % 0.1 0.2 Normal RBC Morphology Not Reportable Hypochromasia 1+ Microcytosis 1+ INR (Anticoag Therapy) APTT Sodium 139 Potassium 4.0 Chloride 112 H Carbon Dioxide 17 L Anion Gap 10 BUN 15 Creatinine 1.38 H Est GFR ( Amer) 51.2 Est GFR (Non-Af Amer) 39.8 BUN/Creatinine Ratio 10.9 Glucose 77 Calcium 9.4 Phosphorus < 1.0 L* Magnesium 1.1 L Total Bilirubin 4.40 H AST 32 ALT 7 Alkaline Phosphatase 66 Total Protein 6.5 Total Protein (PEP) Albumin 3.0 L Albumin (PEP) Globulin 3.5 Albumin/Globulin Ratio 0.9 L Albumin/Globulin (PEP) Qgkzr-0-Zhjzxsntz Qbuzt-2-Bjxjoouwh Xzdk-9-Yiasstqy Gamma Globulins PEP Impression Ur Random Albumin % U Random Total Protein Ur Albumin/Globulin U Random z-3-Apmbkdqj % U Random t-4-Fynuzgpl % U Random b-Globulin % U Random Gamma Glob % 06/30/16 05:47 WBC RBC Hgb Hct MCV MCH MCHC RDW Plt Count MPV Immature Gran % (Auto) Neut % (Auto) Lymph % (Auto) [place] % (Auto) Eos % (Auto) Baso % (Auto) Absolute Neuts (auto) Absolute Lymphs (auto) Absolute Monos (auto) Absolute Eos (auto) Absolute Basos (auto) Absolute Nucleated RBC Neutrophils % Band Neutrophils % Lymphocytes % Monocytes % Metamyelocytes % Myelocytes % Nucleated RBC % Normal RBC Morphology Hypochromasia Microcytosis INR (Anticoag Therapy) 1.29 H APTT 42.7 H Sodium Potassium Chloride Carbon Dioxide Anion Gap BUN Creatinine Est GFR ( Amer) Est GFR (Non-Af Amer) BUN/Creatinine Ratio Glucose Calcium Phosphorus Magnesium Total Bilirubin AST ALT Alkaline Phosphatase Total Protein Total Protein (PEP) Albumin Albumin (PEP) Globulin Albumin/Globulin Ratio Albumin/Globulin (PEP) Lmfyf-4-Wchclffyz Wuiod-0-Jpmaostcx Hvxo-9-Sjpzntbo Gamma Globulins PEP Impression Ur Random Albumin % U Random Total Protein Ur Albumin/Globulin U Random e-1-Hbsqdxmd % U Random x-4-Isjpfrax % U Random b-Globulin % U Random Gamma Glob % Acetaminophen (Tylenol Tab*) 650 mg PO Q4H PRN PRN Reason: PAIN Last Admin: 06/28/16 14:27 Dose: 650 mg Cyclosporine (Modified) (Neoral Cap(*)) 100 mg PO BID [facility] Last Admin: 06/29/16 21:56 Dose: 100 mg Docusate Sodium (Colace Cap*) 100 mg PO DAILY [facility] Last Admin: 06/29/16 08:37 Dose: Not Given Eltrombopag (Promacta (Nf)) 75 mg PO DAILY [facility] Last Admin: 06/29/16 08:37 Dose: Not Given Haloperidol Lactate (Haldol Inj Iv/Im*) 1 mg IV SLOW PU Q2H PRN PRN Reason: AGITATION Last Admin: 06/29/16 09:40 Dose: 1 mg Sodium Chloride (Ns 0.9% 1000 Ml*) 1,000 mls @ 200 mls/hr IV PER RATE [facility] Last Admin: 06/30/16 03:31 Dose: 200 mls/hr Metoprolol Tartrate (Lopressor Tab*) 25 mg PO BID [facility] Last Admin: 06/29/16 21:57 Dose: 25 mg Ondansetron HCl (Zofran Inj*) 4 mg IV Q4H PRN PRN Reason: NAUSEA/VOMITING Polyethylene Glycol/Electrolytes (Miralax*) 17 gm PO DAILY [facility] Last Admin: 06/29/16 08:37 Dose: Not Given Potassium Phos/Sodium Phos (Neutra Phos 250 Mg Omi*) 250 mg PO QID [facility] Last Admin: 06/29/16 21:54 Dose: 250 mg Senna (Senokot Tab*) 1 tab PO DAILY [facility] Last Admin: 06/29/16 08:37 Dose: Not Given Trazodone HCl (Desyrel Tab*) 50 mg PO BEDTIME PRN PRN Reason: SLEEP Valacyclovir HCl (Valtrex 500 Mg (*)) 500 mg PO DAILY [facility] PRN Reason: Protocol Last Admin: 06/29/16 08:37 Dose: Not Given Assessment: 55 yo F w h/o aplastic anemia and recent colostomy for perforated diverticulitis presenting with weight loss, poor PO intake and confusion and found to have hypercalcemia and acute renal failure. She has now developed hemoptysis in the setting of thrombocytopenia. Chest CT shows a minimal RUL infiltrate. I will ask Dr. Carrizales to see in consultation. Hemoptysis: -transfuse 1 U plts today -pulmonary consult Toxic metabolic encephalopathy: -haldol as needed for agitation -close monitoring, particularly given waxing and waning nature -hold neurontin, ?contributing given renal failure Hypercalcemia: unclear etiology, will likely need bone marrow biopsy in near future -cont IVFs -check foot xrays to look for bony lesions -consider bone scan aplastic anemia: cont promacta and cyclosporine, refusing this am check cyclosporine level -rule out hemolysis, check ldh, haptoglobin, direct coomb's full code close observation for agitation and behavior
[2016-06-30] MEDS: cycloSPORINE Modified CAP(*) 100 MG PO SCH ×2 (10:07→21:49)
[2016-06-30] MEDS: ELTROMBOPAG 75 MG PO SCH (10:08)
[2016-06-30] MEDS: Docusate CAP* 100 MG PO SCH (10:08)
[2016-06-30] MEDS: Metoprolol Tartrate TAB* 25 MG PO SCH ×2 (10:08→21:49)
[2016-06-30] MEDS: Potassium & Sodium Phos 250MG* = 1 PACKET PO SCH ×4 (10:09→21:50)
[2016-06-30] MEDS: Polyethylene Glycol 3350* 17 GM PACKET PO SCH (10:09)
[2016-06-30] MEDS: Senna TAB PO SCH (10:10)
[2016-06-30] MEDS: ValACYclovir (*) 500 MG TAB PO SCH (10:10)
[2016-06-30 11:00] LABS: Hematocrit 23 % (35-47); Hemoglobin 7.4 g/dl (12.0-16.0); Mean Corpuscular HGB Conc 32 g/dl (31-36); Mean Corpuscular Hemoglobin 30 pg (27-31); Mean Corpuscular Volume 94 fL (80-97); Mean Platelet Volume 9 um3 (7.4-10.4); Red Blood Count 2.45 10^6/ul (4.0-5.4); White Blood Count 7.5 10^3/ul (3.5-10.8)
[2016-06-30 11:01] LABS: Comments Flag Yes
[2016-06-30 11:03] LABS: Red Cell Distribution Width 24 % (10.5-15)
[2016-06-30 11:04] LABS: Add Diff/Slide Review? Slide Review Added
[2016-06-30 11:16] LABS: ALT 7 U/L (7-52); AST 28 U/L (13-39); Albumin 2.8 g/dL (3.2-5.2); Alkaline Phosphatase 66 U/L (34-104); Blood Urea Nitrogen 10 mg/dL (6-24); Calcium 7.2 mg/dL (8.6-10.3); Chloride 115 mmol/L (101-111); EGFR African American 74.3 (>60); EGFR Non-African American 57.8 (>60); Globulin 3.2 g/dL (2-4); Glucose 91 mg/dL (70-100); Potassium 3.6 mmol/L (3.5-5.0); Sodium 140 mmol/L (133-145)
[2016-06-30 11:18] LABS: Anion Gap 11 mmol/L (2-11); CO2 Carbon Dioxide 14 mmol/L (22-32); Phosphorus < 1.0 mg/dL (2.5-5.0)
[2016-06-30 11:31] LABS: Hypochromasia 2+
--- NOTE | 2016-06-30 11:33 | RAD ---
INDICATION: Bilateral foot pain. TECHNIQUE: 3 views of both feet were obtained. There is artifact from the patient's size. The patient refused to remove her socks for the study. FINDINGS: The bones are in normal alignment. No fracture is seen. Joint spaces appear maintained. No significant erosive or hypertrophic changes are seen. IMPRESSION: NEGATIVE EXAM.
[2016-06-30 11:40] LABS: Indirect Bilirubin 1.6 mg/dL (0.3-1.0)
[2016-06-30] MEDS ORDERED: Iodixanol* (CONTRAST) 320 MG/ML 100 ML SDV IV ONE (12:18)
[2016-06-30 12:29] LABS: Magnesium 1.6 mg/dL (1.9-2.7)
[2016-06-30 13:42] LABS: PTH Related Peptide 0.5 pmol/L (<2.0)
[2016-06-30] MEDS ORDERED: NS 0.9% 250 ML* 250 ML ONE (14:05)
--- NOTE | 2016-06-30 14:16 | RAD ---
INDICATION: Elevated liver enzymes. Hepatic steatosis. Cholelithiasis. COMPARISON: Hepatic sonogram June 29, 2016; CT abdomen pelvis May 13, 2016 TECHNIQUE: Axial source images were obtained from the hemidiaphragms to the symphysis pubis following administration of oral and intravenous contrast. 76 mL Visipaque 320 was utilized. Coronal and sagittal reconstructed images were acquired. Lung bases: The lung bases are clear. Liver: The liver is normal in size. There is hepatic steatosis There are no masses. There is no ductal dilatation. Gallbladder: There are noncalcified gallstones. There is no evidence of wall thickening or pericholecystic fluid. Spleen: The spleen is normal in size. There are no masses. Pancreas: There is no focal pancreatic mass or ductal dilatation. Adrenal glands: There is no evidence of adrenal mass. Kidneys: The kidneys are normal in size and position. There are prompt nephrograms and there is prompt excretion bilaterally. There are no renal parenchymal masses. There is no evidence of nephrolithiasis. Adenopathy: There is no evidence of adenopathy by size criteria. Fluid collections: Small amount of free fluid in the pelvis with mesenteric stranding. Vessels:There are no significant atherosclerotic changes involving the aorta. There is no focal aneurysm. The iliac vessels are normal in caliber. The IVC appears normal. GI tract: There is interval partial colectomy with placement of a stoma in the left lower quadrant. There is mild stranding in mesentery perhaps related to recent surgical intervention. There are scattered diverticula of the remaining colon. At the level the sutures at the rectum is a localized fluid collection measuring 5.2 cm positioned in the presacral space. This may or may not be infected. There is no erythema collection. The collection appears relatively thin-walled. The remainder the bowel is unremarkable Pelvic organs: There are multiple small cysts in the right adnexa likely related to the right ovary. These could be evaluated with follow-up sonography as indicated. The left adnexa is unremarkable. Bladder: The bladder is decompressed with a Browne catheter. Abdominal and pelvic soft tissues: The extraperitoneal abdominal and pelvic soft tissues appear normal.. Osseous structures: There are no acute osseous findings. Other: None IMPRESSION: 1. Hepatic steatosis. 2. Noncalcified cholelithiasis 3. Interval partial left colectomy with stoma placement left lower quadrant. 5 cm localized fluid collection in the presacral space at the operative site. 4. Mild mesenteric stranding in the minor pelvis perhaps related to recent surgery 5. Multiple small cystic structures right adnexa likely related to the right ovary.
[2016-06-30] MEDS: Potassium Phosphate IV* 15 MMOLE in NS 0.9% 250 ML* 250 ML IVPB SCH ×2 (14:29→21:46)
[2016-06-30 16:39] LABS: Vitamin D 1,25-Dihydroxy 21 pg/mL (18-78)
[2016-06-30 17:13] LABS: Mean Platelet Volume 7 um3 (7.4-10.4)
[2016-06-30 17:17] LABS: Comments Flag Yes
[2016-06-30] MEDS: traZODone TAB* 50 MG TAB PO PRN (21:55)
--- NOTE | 2016-07-01 01:56 | CONS ---
CC: Gordo Johnson MD NEPHROLOGY CONSULTATION: DATE OF CONSULTATION: HISTORY OF PRESENT ILLNESS: Ms. Baker is a 55-year-old female who I had consulted on a few years a go because of an episode of kidney failure, which subsequently resolved. She has a history of aplas tic anemia, hypertension and depression. She presented because of failure to thrive. She recently was in the hospital for a diverting colostomy for diverticulitis with a partial colectomy. She had been having significant thirst; however, she was noted by her family not to be eating and drinking a s much as she had in the past and she had lost some considerable weight. She was having some increa se in her urine volume. She presented to the emergency room where she was found to have severe hype rcalcemia, etiology of which was not known and precipitated this consultation. She apparently was s omewhat confused and disoriented and that has improved since her calcium has come down, but she stil l is not happy to be here and did not seem very happy to see me, although others have described her as being somewhat angry as well. PAST MEDICAL HISTORY: Previous medical history is significant for aplastic anemia, currently treate d with cyclosporine and Promacta; hypertension; depression; hyperlipidemia and diverticulitis. MEDICATIONS: Her medications at the time of admission include: 1. Gabapentin 100 mg 3 times a day, plus 200 mg at bedtime. 2. Colace 3 times a day. 3. Gemfibrozil 600 mg daily. 4. Cyclosporine 100 mg twice a day. 5. Valacyclovir 500 mg daily. 6. Promacta 75 mg daily. ALLERGIES: There are no medical allergies. Of significance, she is on no vitamin supplementation, no calcium supplementation and she had not be en taking any thiazide diuretics. SOCIAL HISTORY: She is living in a senior living facility. She does not use alcohol or tobacco a t present, although she was a smoker. REVIEW OF SYSTEMS: She has had no visual disturbances, no hearing abnormalities or swallowing abnor malities. No chest pain. She has had some significant pain to her feet ever since her surgery abou t a year ago. PHYSICAL EXAMINATION: She is alert and awake but not very pleasant. Vital Signs: Her blood pressur e is 117/81 with a pulse of 107, she is afebrile, respiratory rate is 20. Her lips are quite parche d and dry. Her mucous membranes are dry. She is anicteric. Her chest is clear. The heart revealed regular rhythm without murmurs. The abdomen reveals a functional colostomy. Bowel sounds are posit jose. Lower extremities reveal no cyanosis, clubbing or edema. Neurologic: Grossly intact. She move s all 4 extremities. LABORATORY DATA: Review of laboratory studies reveals a sodium of 140, potassium 3.6, chloride 115, total CO2 of 14 that is down from presentation of 38. BUN 10, creatinine 1.0. Calcium 7.2 that is down from 16.4 on presentation. Her phosphorus is less than 1. Magnesium is 1.6 that was 1.1 on p resentation. Total bilirubin of 2.9. C-reactive protein 29.3. Albumin 2.8. She has had serum pro tein electrophoresis, which did not reveal anything suggestive of multiple myeloma nor did her urine protein electrophoresis. She has a C-related peptide pending. We should see a 1,25-dihydroxyvitam in D which is pending. Her total 25- hydroxyvitamin D is actually a little low at 22.9. We should see a T4 and a TSH. It will be a reasonable thing to get a 24-hour urine for total calcium t o help look for the possibility of familial hypocalciuric hypercalcemia. This would be suggested by the fact that she has had a history of hypercalcemia dating back as early as March 2011. Many o f the other causes of hypercalcemia have been effectively ruled out. She has no evidence of chest m alignancy. Other imaging of her abdomen did not reveal evidence of malignancies of the pancreas nor the kidneys. As far as I can tell, she was not receiving calcium supplementation nor vitamin D sup plementation, and in fact her 25-hydroxyvitamin D level is actually a little low. Her PTH level was inappropriately normal relative to her hypercalcemia and she did have significant hypophosphatemia and a metabolic acidosis, which would also be consistent with hyperparathyroidism. Many of her abno rmalities would be suggestive of milk-alkali syndrome, but we really do not have a good history sugg estive of that. At the present time I would continue to replace her serum phosphorus as well as her magnesium levels. I would probably buffer her metabolic acidosis. Other than that we should await the otherwise suggested laboratory tests and the pending laboratory tests before proceeding on with additional investigation. [id number]/[facility] #: [id number]
--- NOTE | 2016-07-01 03:00 | CONS ---
PULMONARY CONSULTATION REPORT: DATE OF CONSULT: 06/30/16 CONSULTATION REQUESTED BY: Dr. Lory Quinones. REASON FOR CONSULT: Evaluation of hemoptysis. HISTORY OF PRESENT ILLNESS: The patient is a 55-year-old female with history of aplastic anemia, hypertension, depression, hyperlipidemia, developmental delay, who was recently hospitalized for diverticulosis with phlegmon formation , had surgery, and ostomy placement at [facility]. The patient was admitted for gradual worsening and decline in her mental status. The patient was confused and irritated upon admission. She was not her usual self. The patient had evidence of thrombocytopenia and renal failure upon admission. She also was noted to have significantly elevated calcium at 16.4 and very low phosphorus. The patient received IV fluids with improvement in her calcium levels. The patient noted to have episodes of hemoptysis since yesterday. The patient denies significant cough. The patient is a poor historian and given developmental delay with current confusion, good history could not be obtained from the patient. History obtained from review of medical records and discussion with Dr. Quinones. The patient denies cough prior to her admission or during hospitalization. The patient reports feeling of something draining in the back of her throat and would cough up blood clots or streaks of blood with phlegm. The patient denies chest pain, shortness of breath, or dizziness, but her history is very limited. I have personally reviewed CT scan of the chest that was performed during this admission. The patient noted to have nonspecific patchy air space opacities in the right upper lung zone. No endobronchial lesions were noted. No parenchymal lesions or nodules were noted. Hypercalcemia has been improving. She still continues to have very low phosphorus levels. She has bruises on her extremities. She was also noted to have elevated bilirubin. Liver ultrasound demonstrated fatty liver with no other abnormalities. PAST MEDICAL HISTORY: 1. Aplastic anemia, on cyclosporin and Promacta. 2. Hypertension. 3. Depression. 4. Hyperlipidemia. 5. Diverticulitis. PAST SURGICAL HISTORY: 1. Ostomy placement for diverticulitis and presumed partial colectomy. 2. Left shoulder surgery. HOME MEDICATIONS: 1. Gabapentin. 2. Colace. 3. Gemfibrozil. 4. Cyclosporin. 5. Valacyclovir. 6. Promacta. ALLERGIES: No known drug allergies. FAMILY HISTORY: Father with coronary artery disease, mother with diabetes. SOCIAL HISTORY: Former smoker, quit at the age of 31. Denies alcohol or illicit drug use. Lives at home with her developmentally disabled daughter. REVIEW OF SYSTEMS: All systems attempted; however, limited given the patient's confused state and also developmental delay. PHYSICAL EXAM: The patient sitting in bed, in no apparent distress. Old dried blood seen on her lips. Her vital signs: Temperature 97.8, pulse 107 beats per minute, respiratory rate 20 per minute, O2 sat 99%, blood pressure 117/81. HEENT: Pupils equal, reactive to light. Dried blood noted on the lips and tongue. No active bleeding noted in the nose or in the throat. The patient not very cooperative with exam. Neck: No adenopathy. Lungs: Clear to auscultation. No wheezes, rales, or rhonchi. Cardiovascular: S1, S2 present. Regular. No murmurs, gallops, or rubs. Abdomen: Soft, nondistended, nontender. Ostomy in place. Extremities: No cyanosis, clubbing, or edema. Skin: Bruises present in upper extremities. Neurologic: Alert and oriented to self and place. Gets agitated with questions and exam. DIAGNOSTIC STUDIES/LAB DATA: WBC count 7.5, hemoglobin 7.4, hematocrit 23, platelet count 24. INR 1.29. Sodium 140, potassium 3.6, chloride 115, bicarb 14, BUN 10, creatinine 1.0, glucose 91, calcium 7.2, phosphorus less than 1, magnesium 1.6. T-bili 2.90, direct bili 1.30, and indirect bili of 1.6. LDH 317, total protein 6.0, albumin 2.8. Protein electrophoresis did not show any monoclonal protein. CT of the chest as described above in HPI. Liver ultrasound as described above in HPI. IMPRESSION/RECOMMENDATIONS: 55-year-old female with history of aplastic anemia with severe thrombocytopenia with renal failure, elevated bilirubin, electrolyte abnormalities, metabolic acidosis likely from renal tubular acidosis with few episodes of hemoptysis. Unclear source of hemoptysis, most likely secondary to thrombocytopenia.No active bleeding at this time. The patient is able to protect her airway, no need for intubation at this time. No endobronchial lesions were noted on CT chest, no parenchymal lesions were noted. Bronchoscopy is high risk currently given low platelets which will result in more bleeding due to suctioning and mucosal trauma. The patient to have further evaluation of renal failure and possible intravascular hemolysis. If hemoptysis continues, will schedule the patient for bronchoscopy to be performed on , July 08. I will be out of town until next . I have discussed the above findings and recommendations with Dr. Quinones who is in agreement. If urgent pulmonary services are needed given my lack of availability, she needs to be transferred to a different facility. [id number]/[facility] #: [id number] [facility]ITAL[facility]
[2016-07-01] MEDS: NS 0.9% 1000 ML* 1,000 ML IV SCH (04:45)
[2016-07-01 08:01] LABS: Hematocrit 20 % (35-47); Hemoglobin 6.6 g/dl (12.0-16.0); Mean Corpuscular HGB Conc 33 g/dl (31-36); Mean Corpuscular Hemoglobin 31 pg (27-31); Mean Corpuscular Volume 94 fL (80-97); Mean Platelet Volume 8 um3 (7.4-10.4); Red Blood Count 2.15 10^6/ul (4.0-5.4); Red Cell Distribution Width 24 % (10.5-15); White Blood Count 7.2 10^3/ul (3.5-10.8)
[2016-07-01 08:06] LABS: Add Diff/Slide Review? Slide Review Added; Comments Flag Yes
[2016-07-01 08:15] LABS: Albumin 2.5 g/dL (3.2-5.2); BUN/Creatinine Ratio 9.4 (8-20); EGFR African American 89.6 (>60); EGFR Non-African American 69.7 (>60); Globulin 3.2 g/dL (2-4); Magnesium 1.1 mg/dL (1.9-2.7); Phosphorus 1.3 mg/dL (2.5-5.0); Potassium 3.1 mmol/L (3.5-5.0); Total Bilirubin 2.6 mg/dL (0.2-1.0); Total Protein 5.7 g/dL (6.4-8.9)
[2016-07-01] MEDS ORDERED: Calcium Gluconate INJ* 4 GM in NS 0.9% 250 ML* 250 ML IVPB ONE (09:23)
[2016-07-01] MEDS ORDERED: Acetaminophen TAB* 325 MG PO ONE (09:29)
[2016-07-01] MEDS ORDERED: diPHENhydraMINE PO* 25 MG PO ONE (09:29)
[2016-07-01] MEDS ORDERED: D5W IVPB ONE (10:00)
[2016-07-01] MEDS ORDERED: POTASSIUM ACETATE IVPB ONE ×2 (10:00)
[2016-07-01] MEDS ORDERED: STERILE WATER FOR INJ IVPB ONE (10:00)
[2016-07-01] MEDS ORDERED: Lidocaine 2% PF* 10 ML AMP INJ ONE (10:16)
[2016-07-01] MEDS: Metoprolol Tartrate TAB* 25 MG PO SCH ×2 (10:20→21:28)
[2016-07-01] MEDS: Docusate CAP* 100 MG PO SCH (10:21)
[2016-07-01] MEDS: ELTROMBOPAG 75 MG PO SCH (10:21)
[2016-07-01] MEDS: ValACYclovir (*) 500 MG TAB PO SCH (10:22)
[2016-07-01] MEDS: cycloSPORINE Modified CAP(*) 100 MG PO SCH ×2 (10:22→21:27)
[2016-07-01] MEDS ORDERED: LORazepam INJ* 2 MG/ML 1 ML VIAL IV PUSH ONE (10:30)
--- NOTE | 2016-07-01 10:30 | PN ---
Progress Note - Progress Note SOAP: Subjective: []Feeling OK, tired as she did not sleep last night. Less combative per nursing. Denies any symptoms but is tearful and hysterical at times. Consents to bone marrow biopsy but very fearful of pain. Plan of care discuss with daughter Nicole at pt.'s request as well who is in agreement with bone marrow biopsy. To note Nicole admits a general decline over last several months and concern that her mom will not fully recover even if true etiology is found. Medications: Acetaminophen (Tylenol Tab*) 650 mg PO Q4H PRN PRN Reason: PAIN Last Admin: 06/28/16 14:27 Dose: 650 mg Cyclosporine (Modified) (Neoral Cap(*)) 100 mg PO BID [facility] Last Admin: 06/30/16 21:49 Dose: 100 mg Docusate Sodium (Colace Cap*) 100 mg PO DAILY [facility] Last Admin: 06/30/16 10:08 Dose: 100 mg Eltrombopag (Promacta (Nf)) 75 mg PO DAILY [facility] Last Admin: 06/30/16 10:08 Dose: 75 mg Haloperidol Lactate (Haldol Inj Iv/Im*) 1 mg IV SLOW PU Q2H PRN PRN Reason: AGITATION Last Admin: 06/29/16 09:40 Dose: 1 mg Calcium Gluconate 4 gm/ Sodium (Chloride) 290 mls @ 96.667 mls/hr IVPB ONCE ONE Stop: 07/01/16 12:22 Potassium Acetate 40 meq/ (Dextrose) 270 mls @ 90 mls/hr IVPB ONCE ONE Stop: 07/01/16 12:59 Lidocaine HCl (Xylocaine 2%*) 10 ml INJ ONCE ONE Stop: 07/01/16 10:17 Lorazepam (Ativan Inj*) 1 mg IV PUSH ONCE ONE Stop: 07/01/16 10:31 Metoprolol Tartrate (Lopressor Tab*) 25 mg PO BID [facility] Last Admin: 06/30/16 21:49 Dose: 25 mg Ondansetron HCl (Zofran Inj*) 4 mg IV Q4H PRN PRN Reason: NAUSEA/VOMITING Potassium Phos/Sodium Phos (Neutra Phos 250 Mg Omi*) 250 mg PO QID [facility] Last Admin: 06/30/16 21:50 Dose: 250 mg Trazodone HCl (Desyrel Tab*) 50 mg PO BEDTIME PRN PRN Reason: SLEEP Last Admin: 06/30/16 21:55 Dose: 50 mg Valacyclovir HCl (Valtrex 500 Mg (*)) 500 mg PO DAILY [facility] PRN Reason: Protocol Last Admin: 06/30/16 10:10 Dose: 500 mg Objective: [] Vital Signs Temp Pulse Resp BP Pulse Ox 98.3 F 106 16 135/101 98 07/01/16 04:02 07/01/16 07:36 07/01/16 07:36 07/01/16 07:36 07/01/16 07:36 A&Ox3, easily distracted and at times disoriented to situation but able to refocus EOMI, CN II-XII intact, GODDARD, strength = bilat. HRR, no murmur noted ST on tele LS Clear bilat +BS, abd. soft, ostomy output liquid No CVA tenderness, doss output dark yellow Laboratory Results - last 24 hr 06/26/16 06/30/16 06/30/16 21:55 10:45 10:45 WBC 7.5 RBC 2.45 L Hgb 7.4 L Hct 23 L MCV 94 MCH 30 MCHC 32 RDW 24 H Plt Count 24 L MPV 9 Neut % (Auto) 80.8 Lymph % (Auto) 8.8 L [place] % (Auto) 9.7 H Eos % (Auto) 0.5 Baso % (Auto) 0.2 Absolute Neuts (auto) 6.1 Absolute Lymphs (auto) 0.7 L Absolute Monos (auto) 0.7 Absolute Eos (auto) 0 Absolute Basos (auto) 0 Absolute Nucleated RBC 0.01 Nucleated RBC % 0.1 Normal RBC Morphology Not Reportable Hypochromasia 2+ Sodium 140 Potassium 3.6 Chloride 115 H Carbon Dioxide 14 L* Anion Gap 11 BUN 10 Creatinine 1.00 H Est GFR ( Amer) 74.3 Est GFR (Non-Af Amer) 57.8 BUN/Creatinine Ratio 10.0 Glucose 91 Calcium 7.2 L Phosphorus < 1.0 L* Magnesium 1.6 L Total Bilirubin 2.90 H D Direct Bilirubin 1.30 H Indirect Bilirubin 1.6 H AST 28 ALT 7 Alkaline Phosphatase 66 Ammonia Lactate Dehydrogenase 317 H Total Protein 6.0 L Albumin 2.8 L Globulin 3.2 Albumin/Globulin Ratio 0.9 L Vit D 1,25-Dihydroxy 21 PTH Related Peptide 0.5 Blood Type Antibody Screen Direct Antiglob Test Crossmatch 06/30/16 06/30/16 07/01/16 10:45 16:56 07:40 WBC 7.2 RBC 2.15 L Hgb 6.6 L Hct 20 L MCV 94 MCH 31 MCHC 33 RDW 24 H Plt Count 46 L D 28 L MPV 7 L 8 Neut % (Auto) 81.7 Lymph % (Auto) 8.9 L [place] % (Auto) 8.6 Eos % (Auto) 0.5 Baso % (Auto) 0.3 Absolute Neuts (auto) 5.9 Absolute Lymphs (auto) 0.6 L Absolute Monos (auto) 0.6 Absolute Eos (auto) 0 Absolute Basos (auto) 0 Absolute Nucleated RBC 0.03 Nucleated RBC % 0.4 Normal RBC Morphology Hypochromasia Sodium Potassium Chloride Carbon Dioxide Anion Gap BUN Creatinine Est GFR ( Amer) Est GFR (Non-Af Amer) BUN/Creatinine Ratio Glucose Calcium Phosphorus Magnesium Total Bilirubin Direct Bilirubin Indirect Bilirubin AST ALT Alkaline Phosphatase Ammonia Lactate Dehydrogenase Total Protein Albumin Globulin Albumin/Globulin Ratio Vit D 1,25-Dihydroxy PTH Related Peptide Blood Type Cancelled Antibody Screen Cancelled Direct Antiglob Test Negative Crossmatch See Detail 07/01/16 07/01/16 07/01/16 07:40 07:40 09:00 WBC RBC Hgb Hct MCV MCH MCHC RDW Plt Count MPV Neut % (Auto) Lymph % (Auto) [place] % (Auto) Eos % (Auto) Baso % (Auto) Absolute Neuts (auto) Absolute Lymphs (auto) Absolute Monos (auto) Absolute Eos (auto) Absolute Basos (auto) Absolute Nucleated RBC Nucleated RBC % Normal RBC Morphology Hypochromasia Sodium 142 Potassium 3.1 L Chloride 116 H Carbon Dioxide 14 L* Anion Gap 12 H BUN 8 Creatinine 0.85 Est GFR ( Amer) 89.6 Est GFR (Non-Af Amer) 69.7 BUN/Creatinine Ratio 9.4 Glucose 95 Calcium 6.0 L* Phosphorus 1.3 L Magnesium 1.1 L Total Bilirubin 2.60 H Direct Bilirubin Indirect Bilirubin AST 36 ALT 9 Alkaline Phosphatase 64 Ammonia 36 Lactate Dehydrogenase Total Protein 5.7 L Albumin 2.5 L Globulin 3.2 Albumin/Globulin Ratio 0.8 L Vit D 1,25-Dihydroxy PTH Related Peptide Blood Type A Positive Antibody Screen Direct Antiglob Test Crossmatch See Detail Assessment: []55 yo female with complicated course, known hemolytic anemia. Today it appeats a large component of her issues are related to severe GI loss secondary to recent colostomy and liquid output, we will support her electrolytes while attempting to re-establish better management. Interestingly she has had near complete resolution of acute renal failure. Plan of care discussed with Dr. Caldera and will continue evaluation of underlying renal function. Plan: []1. Hypocalcemia: secondary to prior biophosphonate therapy, though question of renal loss. IV replacement today, cont. daily labs 2. Hypercholemia: likely secondary to dilutional impact of fluid overload, stop NaCl, may benefit from LR if requires further IV fluids 3. Hypokalemia: secondary to diarrhea from ostomy, stop laxatives, IV replace, recheck labs, and consider anti-diarrheals if needed 4. Hypophosphatemia: question of relation to hemolytic anemia or renal loss, cont. PO replacement and follow daily labs 5. Anemia: felt to be hemolytic (known dx.) but with multiple abnormalities question of progressive bone marrow malfunction, biopsy today and transfuse 1 unit PRBCs 6. Thrombocytopenia: likely secondary to hemolytic process, however will eval. with bone marrow as well, follow daily labs 7. Hyperbilirubemia: felt to be secondary to hemolysis, no evidence for fulminate failure with normal ammonia\ 8. Elevated anion gap: metabolic acidosis in setting of hypercholemia with excessive hydration, strict I&Os, no buffering at this time, start calcitrol bid per Dr. Caldera recommendation, repeat labs in AM
[2016-07-01] MEDS: Potassium & Sodium Phos 250MG* = 1 PACKET PO SCH ×4 (10:56→21:32)
[2016-07-01] MEDS ORDERED: NS 0.9% 250 ML* 250 ML ONE (10:57)
[2016-07-01] MEDS: Senna TAB PO SCH (11:08)
--- NOTE | 2016-07-01 11:16 | PROCNOTE ---
Hematology/Oncology Procedure Hematology/Oncology Procedure Note: Bone Marrow Biopsy: Informed consent obtained. Time out performed per protocol. Anesthesia 2% lidocaine approx. 8 mLs administered with good affect. Bone marrow biopsy and aspiration performed on right posterior superior iliac crest without obvious complications. Minimal blood loss. Pt. tolerated well.
[2016-07-01] MEDS: Acetaminophen TAB* 325 MG PO PRN (15:01)
[2016-07-01] MEDS: Calcitriol CAP* 0.25 MCG PO SCH (21:27)
[2016-07-02] MEDS: Acetaminophen TAB* 325 MG PO PRN ×2 (02:31→20:44)
[2016-07-02 06:28] LABS: Hematocrit 24 % (35-47); Hemoglobin 8.1 g/dl (12.0-16.0); Mean Corpuscular HGB Conc 34 g/dl (31-36); Mean Corpuscular Hemoglobin 30 pg (27-31); Mean Corpuscular Volume 89 fL (80-97); Mean Platelet Volume 9 um3 (7.4-10.4); Red Blood Count 2.69 10^6/ul (4.0-5.4); White Blood Count 6.1 10^3/ul (3.5-10.8)
[2016-07-02 06:29] LABS: Comments Flag Yes
[2016-07-02 06:30] LABS: Add Diff/Slide Review? Slide Review Added; Red Cell Distribution Width 23 % (10.5-15)
[2016-07-02 06:45] LABS: Albumin 2.6 g/dL (3.2-5.2); BUN/Creatinine Ratio 8.6 (8-20); Calcium 6.6 mg/dL (8.6-10.3); EGFR African American 94.8 (>60); EGFR Non-African American 73.7 (>60); Globulin 3.1 g/dL (2-4); Magnesium 1.1 mg/dL (1.9-2.7); Phosphorus 1.3 mg/dL (2.5-5.0); Potassium 3.4 mmol/L (3.5-5.0); Total Bilirubin 2.4 mg/dL (0.2-1.0); Total Protein 5.7 g/dL (6.4-8.9)
[2016-07-02] MEDS ORDERED: NS 0.9% 250 ML* 250 ML ONE ×2 (09:11→10:53)
[2016-07-02] MEDS: Calcitriol CAP* 0.25 MCG PO SCH ×2 (09:27→20:44)
[2016-07-02] MEDS: ValACYclovir (*) 500 MG TAB PO SCH (09:27)
[2016-07-02] MEDS: cycloSPORINE Modified CAP(*) 100 MG PO SCH ×2 (09:27→20:44)
[2016-07-02] MEDS: Docusate CAP* 100 MG PO SCH (09:27)
[2016-07-02] MEDS: Metoprolol Tartrate TAB* 25 MG PO SCH ×2 (09:27→20:44)
[2016-07-02] MEDS: ELTROMBOPAG 75 MG PO SCH (09:28)
[2016-07-02] MEDS: Potassium & Sodium Phos 250MG* = 1 PACKET PO SCH ×5 (09:29→20:44)
[2016-07-02] MEDS ORDERED: Loperamide CAP* 2 MG PO ONE (09:59)
[2016-07-02] MEDS ORDERED: Loperamide CAP* 2 MG PO PRN (09:59)
[2016-07-02] MEDS ORDERED: POTASSIUM ACETATE IVPB SCH ×4 (10:00)
[2016-07-02] MEDS ORDERED: MAGNESIUM SULFATE IVPB SCH ×4 (10:00)
[2016-07-02] MEDS ORDERED: [UNRECOGNIZED DRUG - OTHER] IVPB SCH ×4 (10:00)
--- NOTE | 2016-07-02 10:28 | PN ---
Progress Note - Progress Note SOAP: Subjective: []Feeling OK, no specific complaints. Tearful and states she wants to go home. Minimally aware of management of ostomy. When asked about removing doss states, "Well that'll hurt like a bitch." Ostomy output liquid. Has been a two assist most recently with transfers and not ambulating much. Refusing Phosphorous PO supplement as it is a powder Medications: Acetaminophen (Tylenol Tab*) 650 mg PO Q4H PRN PRN Reason: PAIN Last Admin: 07/02/16 02:31 Dose: 650 mg Calcitriol (Rocaltrol Cap*) 0.25 mcg PO BID [facility] Last Admin: 07/02/16 09:27 Dose: 0.25 mcg Cyclosporine (Modified) (Neoral Cap(*)) 100 mg PO BID [facility] Last Admin: 07/02/16 09:27 Dose: 100 mg Eltrombopag (Promacta (Nf)) 75 mg PO DAILY [facility] Last Admin: 07/02/16 09:28 Dose: 75 mg Haloperidol Lactate (Haldol Inj Iv/Im*) 1 mg IV SLOW PU Q2H PRN PRN Reason: AGITATION Last Admin: 06/29/16 09:40 Dose: 1 mg Potassium Acetate 20 meq/Magnesium Sulfate 3 gm/Calcium Gluconate 9.3 meq/ Dextrose 286 mls @ 95.333 mls/hr IVPB ONCE [facility] Metoprolol Tartrate (Lopressor Tab*) 25 mg PO BID [facility] Last Admin: 07/02/16 09:27 Dose: 25 mg Ondansetron HCl (Zofran Inj*) 4 mg IV Q4H PRN PRN Reason: NAUSEA/VOMITING Potassium Phos/Sodium Phos (Neutra Phos 250 Mg Omi*) 250 mg PO QID [facility] Last Admin: 07/02/16 09:35 Dose: Not Given Trazodone HCl (Desyrel Tab*) 50 mg PO BEDTIME PRN PRN Reason: SLEEP Last Admin: 06/30/16 21:55 Dose: 50 mg Valacyclovir HCl (Valtrex 500 Mg (*)) 500 mg PO DAILY [facility] PRN Reason: Protocol Last Admin: 07/02/16 09:27 Dose: 500 mg Objective: [] Vital Signs Temp Pulse Resp BP Pulse Ox 98.5 F 100 16 128/86 99 07/02/16 08:08 07/02/16 08:08 07/02/16 08:08 07/02/16 08:08 07/02/16 08:08 A&Ox3, though some difficulty with time and understanding of situation HRR, no murmur noted, ST on tele with rare PVCs LS clear bilat., resp. even and non-labored ++BS, abd. soft and non-tender, ostomy output liquid Multiple bruises at various stages Laboratory Results - last 24 hr 07/01/16 07/01/16 07/02/16 11:01 11:05 05:51 WBC 6.1 RBC 2.69 L Hgb 8.1 L Hct 24 L MCV 89 MCH 30 MCHC 34 RDW 23 H Plt Count 21 L MPV 9 Neut % (Auto) 79.5 Lymph % (Auto) 11.8 L [place] % (Auto) 8.0 Eos % (Auto) 0.5 Baso % (Auto) 0.2 Absolute Neuts (auto) 4.9 Absolute Lymphs (auto) 0.7 L Absolute Monos (auto) 0.5 Absolute Eos (auto) 0 Absolute Basos (auto) 0 Absolute Nucleated RBC 0.01 Nucleated RBC % 0.2 Haptoglobin Sodium Potassium Chloride Carbon Dioxide Anion Gap BUN Creatinine Est GFR ( Amer) Est GFR (Non-Af Amer) BUN/Creatinine Ratio Glucose Calcium Ionized Calcium 3.33 L D Phosphorus Magnesium Total Bilirubin AST ALT Alkaline Phosphatase Total Protein Albumin Globulin Albumin/Globulin Ratio Flow Intrp 2-8 Markers TNP Flow Intrp 16+ Markers TNP Miscellaneous Test Blood Type Antibody Screen Crossmatch 07/02/16 05:51 WBC RBC Hgb Hct MCV MCH MCHC RDW Plt Count MPV Neut % (Auto) Lymph % (Auto) [place] % (Auto) Eos % (Auto) Baso % (Auto) Absolute Neuts (auto) Absolute Lymphs (auto) Absolute Monos (auto) Absolute Eos (auto) Absolute Basos (auto) Absolute Nucleated RBC Nucleated RBC % Haptoglobin Sodium 139 Potassium 3.4 L Chloride 113 H Carbon Dioxide 18 L Anion Gap 8 BUN 7 Creatinine 0.81 Est GFR ( Amer) 94.8 Est GFR (Non-Af Amer) 73.7 BUN/Creatinine Ratio 8.6 Glucose 72 Calcium 6.6 L Ionized Calcium Phosphorus 1.3 L Magnesium 1.1 L Total Bilirubin 2.40 H AST 57 H ALT 11 Alkaline Phosphatase 67 Total Protein 5.7 L Albumin 2.6 L Globulin 3.1 Albumin/Globulin Ratio 0.8 L Flow Intrp 2-8 Markers Flow Intrp 16+ Markers Miscellaneous Test Blood Type Antibody Screen Crossmatch Assessment: []55 yo female with complete clinical course initially admitted with significant decline post d/c from rehab after colostomy placement and subsequent toxic metabolic encephalopathy appearing to slowly improve. Question of metabolic abnormalities arising from poor management of ostomy, though underlying syndrome not excluded at this time. At this time I think we can start attempting management of her ostomy and improving functionality while normalizing electrolytes and plan to d/c to subacute rehab in next 3-4 days ( may even be ready by Tuesday, 07/05). Ms. Baker very much wants to go home, therefore we will attempt to evaluate her independent functionality although unfortunately I think it is very unlikely she can safely manage. Plan: []1. Metabolic Acidosis: resolving with electrolytes and addition of calcitriol , hold addition IV fluids, replacement today as previously ordered, cont. PO phos (unfortunately we do not have a pill form), cont. strict I&Os, and follow daily labs 2. Diarrhea: new ostomy and needs better management, add immodium and attempt to have pt. take part in management, will order education as well (if available) 3. Moderate malnutrition: likely protein caloric deficient but also may be related to her poor absorption, attempt calorie count, appreciate earth sciences professor's input, cont. protein supplements 4. Aplastic Anemia: question of hemolytic component or other bone marrow malfunction, bone marrow biopsy yesterday, follow counts 5. Discharge disposition: PT (cont. working on ambulation), OT romario brandt out, likely d/c to [facility] next week
[2016-07-02] MEDS ORDERED: Potassium Phosphate IV* 10 MMOLE in NS 0.9% 250 ML* 250 ML IVPB ONE (10:29)
[2016-07-02] MEDS: traZODone TAB* 50 MG TAB PO PRN (20:44)
[2016-07-03] MEDS: Acetaminophen TAB* 325 MG PO PRN ×2 (02:08→19:54)
[2016-07-03 05:56] LABS: Hematocrit 25 % (35-47); Hemoglobin 8.3 g/dl (12.0-16.0); Mean Corpuscular HGB Conc 33 g/dl (31-36); Mean Corpuscular Hemoglobin 30 pg (27-31); Mean Corpuscular Volume 89 fL (80-97); Mean Platelet Volume 9 um3 (7.4-10.4)
[2016-07-03 05:59] LABS: Add Diff/Slide Review? Slide Review Added; Comments Flag Yes; Red Cell Distribution Width 23 % (10.5-15)
[2016-07-03 06:10] LABS: Albumin 2.6 g/dL (3.2-5.2); BUN/Creatinine Ratio 11.8 (8-20); Calcium 6.8 mg/dL (8.6-10.3); EGFR African American 89.6 (>60); EGFR Non-African American 69.7 (>60); Globulin 3.1 g/dL (2-4); Magnesium 1.7 mg/dL (1.9-2.7); Phosphorus 1.5 mg/dL (2.5-5.0); Potassium 3.7 mmol/L (3.5-5.0); Total Bilirubin 1.9 mg/dL (0.2-1.0); Total Protein 5.7 g/dL (6.4-8.9)
[2016-07-03 07:14] LABS: Hypochromasia 1+; Immature Granulocytes 14 % (0-9); Metamyelocytes % 3 % (0-2); Myelocytes % 4 % (0-1); Neutrophil % 65 % (38-83); Reactive Lymph % 1 % (0-6)
--- NOTE | 2016-07-03 07:43 | PN ---
Progress Note - Progress Note SOAP: Subjective: definitely more alert. no further hallucinations and now agreeable to SNF placement. Objective: Vital Signs Temp Pulse Resp BP Pulse Ox 98.2 F 87 16 104/66 100 07/03/16 04:02 07/03/16 04:02 07/03/16 04:02 07/03/16 04:02 07/03/16 04:02 perr eomi op dry cta bl s1 s2 nl soft, minimal liquid stools in ostomy no le edema A+O x 3, grossly nonfocal Laboratory Results - last 24 hr 06/29/16 07/01/16 07/03/16 10:00 11:05 05:40 WBC 5.0 RBC 2.80 L Hgb 8.3 L Hct 25 L MCV 89 MCH 30 MCHC 33 RDW 23 H Plt Count 16 L MPV 9 Immature Gran % (Auto) 14 H Neut % (Auto) 76.4 Lymph % (Auto) 14.1 L [place] % (Auto) 7.8 Eos % (Auto) 1.3 Baso % (Auto) 0.4 Absolute Neuts (auto) 3.8 Absolute Lymphs (auto) 0.7 L Absolute Monos (auto) 0.4 Absolute Eos (auto) 0.1 Absolute Basos (auto) 0 Absolute Nucleated RBC 0.01 Neutrophils % 65 Band Neutrophils % 7 Lymphocytes % 17 L Reactive Lymphs % 1 Monocytes % 3 Metamyelocytes % 3 H Myelocytes % 4 H Nucleated RBC % 0.3 Nucleated RBCs/100 WBC 1 H Normal RBC Morphology Not Reportable Hypochromasia 1+ Sodium Potassium Chloride Carbon Dioxide Anion Gap BUN Creatinine Est GFR ( Amer) Est GFR (Non-Af Amer) BUN/Creatinine Ratio Glucose Calcium Phosphorus Magnesium Total Bilirubin AST ALT Alkaline Phosphatase Total Protein Albumin Globulin Albumin/Globulin Ratio Flow Intrp 2-8 Markers Flow Intrp 9-15 Marker TNP Miscellaneous Test See comment 07/03/16 05:40 WBC RBC Hgb Hct MCV MCH MCHC RDW Plt Count MPV Immature Gran % (Auto) Neut % (Auto) Lymph % (Auto) [place] % (Auto) Eos % (Auto) Baso % (Auto) Absolute Neuts (auto) Absolute Lymphs (auto) Absolute Monos (auto) Absolute Eos (auto) Absolute Basos (auto) Absolute Nucleated RBC Neutrophils % Band Neutrophils % Lymphocytes % Reactive Lymphs % Monocytes % Metamyelocytes % Myelocytes % Nucleated RBC % Nucleated RBCs/100 WBC Normal RBC Morphology Hypochromasia Sodium 139 Potassium 3.7 Chloride 112 H Carbon Dioxide 17 L Anion Gap 10 BUN 10 Creatinine 0.85 Est GFR ( Amer) 89.6 Est GFR (Non-Af Amer) 69.7 BUN/Creatinine Ratio 11.8 Glucose 85 Calcium 6.8 L Phosphorus 1.5 L Magnesium 1.7 L Total Bilirubin 1.90 H AST 67 H ALT 14 Alkaline Phosphatase 81 Total Protein 5.7 L Albumin 2.6 L Globulin 3.1 Albumin/Globulin Ratio 0.8 L Flow Intrp 2-8 Markers Flow Intrp 9-15 Marker Miscellaneous Test Acetaminophen (Tylenol Tab*) 650 mg PO Q4H PRN PRN Reason: PAIN Last Admin: 07/03/16 02:08 Dose: 650 mg Calcitriol (Rocaltrol Cap*) 0.25 mcg PO BID [facility] Last Admin: 07/02/16 20:44 Dose: 0.25 mcg Cyclosporine (Modified) (Neoral Cap(*)) 100 mg PO BID [facility] Last Admin: 07/02/16 20:44 Dose: 100 mg Eltrombopag (Promacta (Nf)) 75 mg PO DAILY [facility] Last Admin: 07/02/16 09:28 Dose: 75 mg Haloperidol Lactate (Haldol Inj Iv/Im*) 1 mg IV SLOW PU Q2H PRN PRN Reason: AGITATION Last Admin: 06/29/16 09:40 Dose: 1 mg Loperamide HCl (Imodium Cap*) 2 mg PO .SEE DIRECTIONS PRN PRN Reason: DIARRHEA Metoprolol Tartrate (Lopressor Tab*) 25 mg PO BID [facility] Last Admin: 07/02/16 20:44 Dose: 25 mg Ondansetron HCl (Zofran Inj*) 4 mg IV Q4H PRN PRN Reason: NAUSEA/VOMITING Potassium Phos/Sodium Phos (Neutra Phos 250 Mg Omi*) 250 mg PO QID [facility] Last Admin: 07/02/16 20:44 Dose: Not Given Prednisone (Deltasone Tab*) 60 mg PO DAILY [facility] Trazodone HCl (Desyrel Tab*) 50 mg PO BEDTIME PRN PRN Reason: SLEEP Last Admin: 07/02/16 20:44 Dose: 50 mg Valacyclovir HCl (Valtrex 500 Mg (*)) 500 mg PO DAILY [facility] PRN Reason: Protocol Last Admin: 07/02/16 09:27 Dose: 500 mg Assessment: 55 yo F w aplastic anemia who presented with severe hypercalcemia in the setting of marked diarrhea and poor PO intake. Though this does seem extreme for dehydration, I am not sure what else to contribute it to. She has had an extensive malignancy work up which has been negative to date. Clinically she is improving (no longer delirious). Unfortunately her platelets are falling. interestingly, her marrow is essentially normocellular at this point. Unfortunately I do think we need to resume her steroids, which she is very unhappy about given her weight gain on this previously. We will plan to start at 1mg/kg/day this weekend, and I will discuss with Dr. Flores next week. If her plts go <15k or she is bleeding we will transfuse. -dc tele -dc 1:1 but keep close to nursing station and on safety monitor -use immodium as needed for liquid output in ostomy (only minimal right now) -cont prn haldol, especially now that steroids resuming -no dvt prophylaxis with severe thrombocytopenia -full code
[2016-07-03] MEDS ORDERED: Magnesium Sulfate 2 GM IV* 2 GM/50 ML BAG IVPB ONE (07:44)
[2016-07-03] MEDS: cycloSPORINE Modified CAP(*) 100 MG PO SCH ×2 (09:30→19:55)
[2016-07-03] MEDS: Calcitriol CAP* 0.25 MCG PO SCH ×2 (09:30→19:55)
[2016-07-03] MEDS: ELTROMBOPAG 75 MG PO SCH (09:31)
[2016-07-03] MEDS: Potassium & Sodium Phos 250MG* = 1 PACKET PO SCH ×4 (09:31→19:55)
[2016-07-03] MEDS: Metoprolol Tartrate TAB* 25 MG PO SCH ×2 (09:31→19:55)
[2016-07-03] MEDS: predniSONE TAB* 20 MG PO SCH (09:32)
[2016-07-03] MEDS: ValACYclovir (*) 500 MG TAB PO SCH (10:00)
[2016-07-03 14:10] LABS: Urine Calcium Conc 13 mg/dL
[2016-07-03] MEDS: traZODone TAB* 50 MG TAB PO PRN (19:55)
[2016-07-04 07:30] LABS: Hematocrit 25 % (35-47); Hemoglobin 8.2 g/dl (12.0-16.0); Mean Corpuscular HGB Conc 33 g/dl (31-36); Mean Corpuscular Hemoglobin 30 pg (27-31); Mean Corpuscular Volume 91 fL (80-97); Mean Platelet Volume 9 um3 (7.4-10.4); Red Blood Count 2.76 10^6/ul (4.0-5.4); White Blood Count 4.7 10^3/ul (3.5-10.8)
[2016-07-04 07:33] LABS: Comments Flag Yes
[2016-07-04 07:34] LABS: Add Diff/Slide Review? Slide Review Added; Red Cell Distribution Width 23 % (10.5-15)
[2016-07-04 07:56] LABS: Albumin 2.7 g/dL (3.2-5.2); BUN/Creatinine Ratio 15.9 (8-20); Calcium 7.5 mg/dL (8.6-10.3); EGFR African American 86.1 (>60); Globulin 3.2 g/dL (2-4); Magnesium 1.7 mg/dL (1.9-2.7); Potassium 3.5 mmol/L (3.5-5.0); Total Bilirubin 1.7 mg/dL (0.2-1.0); Total Protein 5.9 g/dL (6.4-8.9)
[2016-07-04 08:47] LABS: Immature Granulocytes 12 % (0-9); Metamyelocytes % 4 % (0-2); Myelocytes % 3 % (0-1); Neutrophil % 65 % (38-83)
[2016-07-04 08:48] LABS: Hypochromasia 1+; Macrocytosis 1+; Polychromasia 1+
[2016-07-04 08:51] LABS: Microcytosis 1+
[2016-07-04] MEDS: Potassium & Sodium Phos 250MG* = 1 PACKET PO SCH ×4 (09:18→20:00)
[2016-07-04] MEDS: ELTROMBOPAG 75 MG PO SCH (09:18)
[2016-07-04] MEDS: predniSONE TAB* 20 MG PO SCH (09:19)
[2016-07-04] MEDS: Acetaminophen TAB* 325 MG PO PRN ×2 (09:19→20:00)
[2016-07-04] MEDS: Metoprolol Tartrate TAB* 25 MG PO SCH ×2 (09:21→20:00)
[2016-07-04] MEDS: Calcitriol CAP* 0.25 MCG PO SCH ×2 (09:22→20:00)
[2016-07-04] MEDS: ValACYclovir (*) 500 MG TAB PO SCH (09:22)
[2016-07-04] MEDS: cycloSPORINE Modified CAP(*) 100 MG PO SCH ×2 (09:22→20:00)
[2016-07-04] MEDS ORDERED: Magnesium Sulfate 2 GM IV* 2 GM/50 ML BAG IVPB ONE (14:17)
[2016-07-04] MEDS ORDERED: Potassium Phosphate IV* 15 MMOLE in NS 0.9% 250 ML* 250 ML IVPB ONE (14:18)
--- NOTE | 2016-07-04 14:43 | PN ---
Subjective Date of Service: 07/04/16 Interval History: Pt is feeling better. She wants to go outside with her daughter. She denies any pain. No SOB. She does not want to drink the Objective Active Medications: Acetaminophen (Tylenol Tab*) 650 mg PO Q4H PRN PRN Reason: PAIN Last Admin: 07/04/16 09:19 Dose: 650 mg Calcitriol (Rocaltrol Cap*) 0.25 mcg PO BID [facility] Last Admin: 07/04/16 09:22 Dose: 0.25 mcg Cyclosporine (Modified) (Neoral Cap(*)) 100 mg PO BID [facility] Last Admin: 07/04/16 09:22 Dose: 100 mg Eltrombopag (Promacta (Nf)) 75 mg PO DAILY [facility] Last Admin: 07/04/16 09:18 Dose: 75 mg Haloperidol Lactate (Haldol Inj Iv/Im*) 1 mg IV SLOW PU Q2H PRN PRN Reason: AGITATION Last Admin: 06/29/16 09:40 Dose: 1 mg Magnesium Sulfate (Magnesium Sulfate 2 Gm Iv*) 2 gm in 50 mls @ 50 mls/hr IVPB ONCE ONE Stop: 07/04/16 15:16 Potassium Phosphate 15 mmole/ (Sodium Chloride) 255 mls @ 42 mls/hr IVPB ONCE ONE Stop: 07/04/16 20:22 Loperamide HCl (Imodium Cap*) 2 mg PO .SEE DIRECTIONS PRN PRN Reason: DIARRHEA Metoprolol Tartrate (Lopressor Tab*) 25 mg PO BID [facility] Last Admin: 07/04/16 09:21 Dose: 25 mg Ondansetron HCl (Zofran Inj*) 4 mg IV Q4H PRN PRN Reason: NAUSEA/VOMITING Potassium Phos/Sodium Phos (Neutra Phos 250 Mg Omi*) 250 mg PO QID [facility] Last Admin: 07/04/16 12:54 Dose: Not Given Prednisone (Deltasone Tab*) 60 mg PO DAILY [facility] Last Admin: 07/04/16 09:19 Dose: 60 mg Trazodone HCl (Desyrel Tab*) 50 mg PO BEDTIME PRN PRN Reason: SLEEP Last Admin: 07/03/16 19:55 Dose: 50 mg Valacyclovir HCl (Valtrex 500 Mg (*)) 500 mg PO DAILY [facility] PRN Reason: Protocol Last Admin: 07/04/16 09:22 Dose: 500 mg Vital Signs 07/03/16 07/03/16 07/03/16 15:21 19:28 20:00 Temperature 98.4 F 98.1 F Pulse Rate 80 95 Respiratory 17 17 17 Rate Blood Pressure 120/76 103/77 (mmHg) O2 Sat by Pulse 99 99 Oximetry 07/04/16 07/04/16 07/04/16 00:02 03:51 07:26 Temperature 97.9 F 98.5 F 98.3 F Pulse Rate 73 79 79 Respiratory 16 16 18 Rate Blood Pressure 117/76 113/75 123/79 (mmHg) O2 Sat by Pulse 100 98 99 Oximetry 07/04/16 07/04/16 08:00 11:08 Temperature 98.2 F Pulse Rate 91 Respiratory 18 18 Rate Blood Pressure 91/63 (mmHg) O2 Sat by Pulse 96 Oximetry Oxygen Devices in Use Now: None Appearance: Middle aged chronically ill appearing female sitting in a chair, NAD Eyes: No Scleral Icterus Ears/Nose/Mouth/Throat: Mucous Membranes Moist Respiratory: Symmetrical Chest Expansion and Respiratory Effort, Clear to Auscultation Cardiovascular: NL Sounds; No Murmurs; No JVD, RRR, No Edema Abdominal: NL Sounds; No Tenderness; No Distention Extremities: No Clubbing, Cyanosis Skin: No Rash or Ulcers, No Nodules or Sclerosis Neurological: Alert and Oriented x 3 Result Diagrams: 07/04/16 07:07 07/04/16 07:04 Additional Lab and Data: Microbiology and Other Data: Microbiology 07/01/16 15:14 Stool Gross Appearance - Final Stool Stool Occult Blood (MATHEW) - Final Assess/Plan/Problems-Billing Ms Baker is a 55 yo F who has a h/o aplastic anemia, depression, HLD and ostomy following surgery for a recent bout of diverticulitis and was admitted with hypercalcemia of unclear etiology. - Patient Problems (1) Hypercalcemia Current Visit: Yes Status: Acute Code(s): E83.52 - HYPERCALCEMIA SNOMED Code(s): 53608292 Comment: S/P calcitonin and pamidoronate. Calcium level then went quite low. Her corrected calcium currently is in appropriate range. Continue to monitor. Replace magnesium and phos today. (2) Aplastic anemia Current Visit: Yes Status: Acute Code(s): D61.9 - APLASTIC ANEMIA, UNSPECIFIED SNOMED Code(s): 531801260 Comment: Continue cyclosporine & eltrombopag. Management is per oncology. (3) Thrombocytopenia Current Visit: Yes Status: Acute Code(s): D69.6 - THROMBOCYTOPENIA, UNSPECIFIED SNOMED Code(s): 285878999 Comment: Chronic but quite low currently. No need for transfusion at this time. Bone marrow biopsy done late last week. Continue prednisone. (4) HTN (hypertension) Current Visit: Yes Status: Acute Code(s): I10 - ESSENTIAL (PRIMARY) HYPERTENSION SNOMED Code(s): 89425057 Comment: BP is under good control off medications. (5) HLD (hyperlipidemia) Current Visit: Yes Status: Acute Code(s): E78.5 - HYPERLIPIDEMIA, UNSPECIFIED SNOMED Code(s): 15766044 Comment: Off gemfibrozil for now. (6) DVT prophylaxis Current Visit: Yes Status: Acute Code(s): ADB9054 - SNOMED Code(s): 918784086 Comment: none secondary to severe thrombocytopenia Status and Disposition: Will need MOO
[2016-07-04] MEDS: traZODone TAB* 50 MG TAB PO PRN (20:00)
[2016-07-05 06:03] LABS: Hematocrit 24 % (35-47); Hemoglobin 7.8 g/dl (12.0-16.0); Mean Corpuscular HGB Conc 33 g/dl (31-36); Mean Corpuscular Hemoglobin 30 pg (27-31); Mean Corpuscular Volume 92 fL (80-97); Mean Platelet Volume 9 um3 (7.4-10.4); Red Blood Count 2.57 10^6/ul (4.0-5.4); White Blood Count 5.1 10^3/ul (3.5-10.8)
[2016-07-05 06:05] LABS: Comments Flag Yes
[2016-07-05 06:06] LABS: Red Cell Distribution Width 22 % (10.5-15)
[2016-07-05 06:17] LABS: BUN/Creatinine Ratio 18.2 (8-20); Calcium 7.8 mg/dL (8.6-10.3); EGFR African American 86.1 (>60); Magnesium 1.8 mg/dL (1.9-2.7); Phosphorus 1.9 mg/dL (2.5-5.0); Potassium 3.7 mmol/L (3.5-5.0)
[2016-07-05] MEDS: Potassium & Sodium Phos 250MG* = 1 PACKET PO SCH ×4 (10:00→22:00)
[2016-07-05] MEDS: Calcitriol CAP* 0.25 MCG PO SCH ×2 (10:30→21:57)
[2016-07-05] MEDS: cycloSPORINE Modified CAP(*) 100 MG PO SCH ×2 (10:31→21:57)
[2016-07-05] MEDS: ValACYclovir (*) 500 MG TAB PO SCH (10:32)
[2016-07-05] MEDS: ELTROMBOPAG 75 MG PO SCH (10:32)
[2016-07-05] MEDS: predniSONE TAB* 20 MG PO SCH (10:35)
[2016-07-05] MEDS: Metoprolol Tartrate TAB* 25 MG PO SCH ×2 (10:36→21:57)
--- NOTE | 2016-07-05 12:52 | PN ---
Progress Note - Progress Note SOAP: Subjective: wants to go to [facility] [place]. does not want to be in the hospital any more. otherwise feeling ok. not sure when her ostomy bag was last emptied. Objective: Vital Signs Temp Pulse Resp BP Pulse Ox 97.8 F 75 17 115/83 97 07/04/16 23:45 07/04/16 23:45 07/05/16 08:00 07/04/16 23:45 07/04/16 23:45 sitting up in nad perr eomi op moist cta bl s1 s2 nl soft nt ostomy without any stool no le edema a+o x 3, non focal Laboratory Results - last 24 hr 07/05/16 07/05/16 07/05/16 05:48 05:48 05:48 WBC 5.1 RBC 2.57 L Hgb 7.8 L Hct 24 L MCV 92 MCH 30 MCHC 33 RDW 22 H Plt Count 21 L D MPV 9 Sodium 138 Potassium 3.7 Chloride 110 Carbon Dioxide 20 L Anion Gap 8 BUN 16 Creatinine 0.88 Est GFR ( Amer) 86.1 Est GFR (Non-Af Amer) 67.0 BUN/Creatinine Ratio 18.2 Glucose 81 Calcium 7.8 L Ionized Calcium 4.33 L Phosphorus 1.9 L Magnesium 1.8 L Acetaminophen (Tylenol Tab*) 650 mg PO Q4H PRN PRN Reason: PAIN Last Admin: 07/04/16 20:00 Dose: 650 mg Calcitriol (Rocaltrol Cap*) 0.25 mcg PO BID [facility] Last Admin: 07/05/16 10:30 Dose: 0.25 mcg Cyclosporine (Modified) (Neoral Cap(*)) 100 mg PO BID [facility] Last Admin: 07/05/16 10:31 Dose: 100 mg Eltrombopag (Promacta (Nf)) 75 mg PO DAILY [facility] Last Admin: 07/05/16 10:32 Dose: 75 mg Haloperidol Lactate (Haldol Inj Iv/Im*) 1 mg IV SLOW PU Q2H PRN PRN Reason: AGITATION Last Admin: 06/29/16 09:40 Dose: 1 mg Loperamide HCl (Imodium Cap*) 2 mg PO .SEE DIRECTIONS PRN PRN Reason: DIARRHEA Metoprolol Tartrate (Lopressor Tab*) 25 mg PO BID [facility] Last Admin: 07/05/16 10:36 Dose: 25 mg Ondansetron HCl (Zofran Inj*) 4 mg IV Q4H PRN PRN Reason: NAUSEA/VOMITING Potassium Phos/Sodium Phos (Neutra Phos 250 Mg Omi*) 250 mg PO QID [facility] Last Admin: 07/05/16 11:04 Dose: Not Given Prednisone (Deltasone Tab*) 60 mg PO DAILY [facility] Last Admin: 07/05/16 10:35 Dose: 60 mg Trazodone HCl (Desyrel Tab*) 50 mg PO BEDTIME PRN PRN Reason: SLEEP Last Admin: 07/04/16 20:00 Dose: 50 mg Valacyclovir HCl (Valtrex 500 Mg (*)) 500 mg PO DAILY [facility] PRN Reason: Protocol Last Admin: 07/05/16 10:32 Dose: 500 mg Assessment: 55 yo F w aplastic anemia who presented with severe hypercalcemia in the setting of marked diarrhea and poor PO intake, with an extensive negative malignancy work up. Aplastic anemia: cont promacta and cyclosporine added prednisone transfuse platelets <15k or bleeding hypercalcemia: unclear etiology. still slightly hypocalcemic (after zometa) on calcitonin but will need to watch closely cont phosphorous repletion full code to randy once accepted with fu in our office 1 week later with labs including phos and calcium
[2016-07-06 06:58] LABS: Hematocrit 24 % (35-47); Hemoglobin 7.9 g/dl (12.0-16.0); Mean Corpuscular HGB Conc 33 g/dl (31-36); Mean Corpuscular Hemoglobin 31 pg (27-31); Mean Corpuscular Volume 92 fL (80-97); Red Cell Distribution Width 22 % (10.5-15); White Blood Count 6.1 10^3/ul (3.5-10.8)
[2016-07-06 07:12] LABS: Albumin 2.6 g/dL (3.2-5.2); BUN/Creatinine Ratio 17.1 (8-20); Comments Flag Yes; EGFR Non-African American 79.3 (>60); Globulin 3.2 g/dL (2-4); Magnesium 1.4 mg/dL (1.9-2.7); Potassium 3.5 mmol/L (3.5-5.0); Total Bilirubin 1.5 mg/dL (0.2-1.0); Total Protein 5.8 g/dL (6.4-8.9)
[2016-07-06 07:49] LABS: Phosphorus 1.9 mg/dL (2.5-5.0)
[2016-07-06] MEDS: cycloSPORINE Modified CAP(*) 100 MG PO SCH (09:00)
[2016-07-06] MEDS: Metoprolol Tartrate TAB* 25 MG PO SCH (09:00)
[2016-07-06] MEDS: Potassium & Sodium Phos 250MG* = 1 PACKET PO SCH ×3 (09:00→12:21)
[2016-07-06] MEDS ORDERED: Calcitriol CAP* 0.25 MCG PO SCH (09:00)
[2016-07-06] MEDS: ValACYclovir (*) 500 MG TAB PO SCH (09:00)
[2016-07-06] MEDS: predniSONE TAB* 20 MG PO SCH (09:01)
[2016-07-06] MEDS: ELTROMBOPAG 75 MG PO SCH (09:01)
[2016-07-06 12:17] VITALS: BP 117/78
--- NOTE | 2016-07-06 15:05 | DS ---
DISCHARGE SUMMARY: DATE OF ADMISSION: 06/26/16 DATE OF DISCHARGE: 07/06/16 DISCHARGE DIAGNOSES: 1. Aplastic anemia: Normocellular bone marrow biopsy; however, clinical deterioration and restarted on steroids. 2. Acute renal failure: With associated failure to thrive, unclear etiology, although concern for malabsorption with new colostomy. 3. Metabolic acidosis: Related to electrolyte replacement, again unclear etiology overall, resolving. 4. Protein-calorie malnutrition, moderate malnutrition: Partial cause of overall failure to thrive, also may be related to malabsorption, clinical deterioration, though some improvement over the last several days. DISCHARGE MEDICATIONS: 1. Acetaminophen 650 mg p.o. q. 4 hours p.r.n. pain. 2. Calcitriol 0.25 mcg p.o. daily, star changed from b.i.d. due to improved calcium. 3. Loperamide 2 mg p.o. p.r.n. diarrhea, max daily dose 8 tabs. 4. Metoprolol 25 mg p.o. b.i.d. 5. Potassium sodium phosphate 250 mg p.o. q.i.d. 6. Cyclosporine 100 mg p.o. b.i.d. 7. Prednisone 60 mg p.o. every day. 8. Trazodone 50 mg p.o. q.h.s. p.r.n. sleep. 9. Promacta 75 mg p.o. every day. 10. Valacyclovir 500 mg p.o. every day. 11. Gemfibrozil 600 mg p.o. b.i.d. 12. Gabapentin 100 mg p.o. t.i.d. p.r.n. pain. HOSPITAL COURSE: Please see admission note for full H and P; however, briefly, Ms. Baker is well known to our service due to her aplastic anemia which has been managed in combination with Dr. Nayak at [facility] in [place], [place]. She presented to the hospital with progressive decline following a colostomy placement due to diverticulitis and phlegmon. Following the colostomy, she was sent to group home facility for rehab, subsequently went home where she continued to fail and then subsequently presented to the ER. Within the first 2 days of her admission, Ms. Baker received fluid resuscitation and was also found to have hypercalcemia, concerning for underlying malignancy. She received IV bisphosphonate on 06/28/16. Around the same time, she had mental status changes, however, it was felt it may be related to the hypercalcemia. Within the next 24 hours, she developed significant mentation changes with subsequent CT of the brain negative. Liver ultrasound negative and chest, abdomen and pelvis CTs all negative. During this time, she developed acute renal failure with significant metabolic abnormalities and subsequent metabolic acidosis on 06/30/16. Dr. Caldera was consulted on 06/30/16 for management of electrolyte abnormalities and underlying renal failure. Dr. Carrizales was consulted on 06/30/16 due to hemoptysis, which was felt to be ultimately related to thrombocytopenia. Ms. Baker had an improvement in her mentation by 07/01/16, whereby she was alert and oriented enough to agree to a bone marrow biopsy, which was obtained that day. Bone marrow biopsy ultimately showed aplastic anemia with normocellular bone marrow; however, with clinical deterioration and CBC abnormalities, Dr. Quinones felt this presented as clinical progression and therefore restarted steroids on 07/03/16. During this time, Ms. Baker also received evaluation for possible alf placement versus safety at home as she was very adamant she wanted to go home but there were multiple concerns in regards to her ability to care for herself. Subsequently, Ms. Baker's electrolytes have continued to normalize with appropriate resuscitation and she is stable for discharge to group home facility at this time. She will be discharged with plan for followup next week with Dr. Aguirre on 07/13/16 with labs the same day. On discharge, she is being sent with steroids as well as calcitriol and phosphorus replacements. While goal would ultimately be having Ms. Baker go home, there are multiple concerns and her clinical deterioration recommends with recovery. Dr. Aguirre will coordinate with Dr. Nayak in regards to management of her aplastic anemia. She will go on discharge with Imodium for use with her colostomy in hopes of decreasing metabolic loss via GI source. Dr. Quinones reviewed plan of care with Ms. Baker, who was partially involved in planning though was in agreement to group home facility placement at this time. TIME SPENT: Greater than 40 minutes were spent with greater than 50% face-to- face. TRISH OSBORNE, LOT WORKER [id number]/[facility] #: [id number] [facility]
[2016-07-12 10:01] LABS: BM Chromosome Source Right PIC; BM Result Summary Normal
== END 2016-07-06 15:35 | DRG 421 ==
LOC: ED 13:16 → MEDTELE 17:40 → OBSVTOIN 06-27 13:34 → MEDTELE 06-28 21:50 → SSU 07-05 23:23
PROVIDERS: ADMIT Hospitalist; ATTEND Internal Medicine Hematology & Oncology
PROC: 30233R1 Transfusion of Nonautologous Platelets into Peripheral Vein, Percutaneous Approach (ICD-10-PCS; 2016-06-30)
PROC: 07DR3ZX Extraction of Iliac Bone Marrow, Percutaneous Approach, Diagnostic (ICD-10-PCS; principal; 2016-07-01)
PROC: 30233N1 Transfusion of Nonautologous Red Blood Cells into Peripheral Vein, Percutaneous Approach (ICD-10-PCS; 2016-07-01)
DX: E44.0 Moderate protein-calorie malnutrition (principal); G92 Toxic encephalopathy; D61.9 Aplastic anemia, unspecified; N17.9 Acute kidney failure, unspecified; R17 Unspecified jaundice; E87.2 Acidosis; R04.2 Hemoptysis; D69.6 Thrombocytopenia, unspecified; R62.7 Adult failure to thrive; Z93.3 Colostomy status; F41.9 Anxiety disorder, unspecified; F32.9 Major depressive disorder, single episode, unspecified; Z82.49 Family history of ischemic heart disease and other diseases of the circulatory system; Z83.3 Family history of diabetes mellitus; Z86.14 Personal history of Methicillin resistant Staphylococcus aureus infection; Z87.891 Personal history of nicotine dependence; R62.50 Unspecified lack of expected normal physiological development in childhood; I12.9 Hypertensive chronic kidney disease with stage 1 through stage 4 chronic kidney disease, or unspecified chronic kidney disease; N18.9 Chronic kidney disease, unspecified; Z80.9 Family history of malignant neoplasm, unspecified; E83.52 Hypercalcemia; E86.0 Dehydration; E78.5 Hyperlipidemia, unspecified; E87.6 Hypokalemia; E83.39 Other disorders of phosphorus metabolism; Z68.24 Body mass index [BMI] 24.0-24.9, adult; Z79.52 Long term (current) use of systemic steroids
CPT/HCPCS: 36415; 38221; 70450; 71010; 71250; 74177; 76705; 76775; 80048; 80053; 80158; 81003; 81015; 81479; 82140; 82247; 82248; 82272; 82306; 82330; 82340; 82397; 82570; 82652; 83010; 83605; 83615; 83735; 83970; 84100; 84105; 84134; 84155; 84156; 84165; 84166; 84300; 84590; 85025; 85027; 85049; 85060; 85097; 85610; 85730; 86850; 86880; 86900; 86901; 86922; 87040; 87086; 88184; 88185; 88187; 88188; 88237; 88264; 88305; 88311; 88313; 93005; 99232; 99233; 99239; A9270-GY; J0610; J0630; J1170; J1630; J1644; J2001; J2060; J2430; J3475; J3489; J7502; J7512; P9016; P9035; Q9967

== ENCOUNTER 2021-04-29 13:45 | Inpatient (IN) ==
[2021-04-29] MEDS ORDERED: Piperacillin/Tazobac ADVAN 3.375 GM in NS 0.9% 100 ml BAG 100 ML IVPB ONE (13:56)
[2021-04-29] MEDS ORDERED: Piperacillin/Tazobac 3.375 GM BAG ONE (13:57)
[2021-04-29] MEDS ORDERED: Lactated Ringers 1000 ml BAG 1,000 ML IV ONE ×3 (13:57→16:13)
[2021-04-29] MEDS ORDERED: Acetaminophen IV 1 GM/100ML 100 ML IV ONE (14:03)
[2021-04-29] MEDS ORDERED: Vancomycin 1,000 MG in NS 0.9% 250 ml 250 ML IVPB ONE (14:28)
[2021-04-29 14:31] LABS: PCO2 Arterial 21 mmHg (35-45); PO2 Arterial 93 mmHg (80-100)
[2021-04-29 14:44] LABS: Hematocrit 27 % (35-47); Hemoglobin 8.5 g/dL (12.0-16.0); Mean Corpuscular HGB Conc 32 g/dL (31-36); Mean Corpuscular Hemoglobin 31 pg (27-31); Mean Corpuscular Volume 97 fL (80-97); Red Blood Count 2.77 10^6 /uL (3.70-4.87); Red Cell Distribution Width 18 % (10-15); White Blood Count 1.4 10^3/uL (3.5-10.8)
[2021-04-29] MEDS ORDERED: Iodixanol (CONTRAST) 320 MG/ML 100 ML SDV IV ONE (14:55)
[2021-04-29] MEDS ORDERED: fentaNYL 100 mcg/2 ml 50 MCG/ML VIAL IV SLOW PU ONE ×2 (15:00→19:08)
[2021-04-29 15:16] LABS: Troponin I 0.21 ng/mL (<0.03)
[2021-04-29 15:17] LABS: ALT 37 U/L (7-52); AST 42 U/L (13-39); Albumin 2.9 g/dL (3.2-5.2); Albumin/Globulin Ratio 0.8 (1-3); Alkaline Phosphatase 203 U/L (35-149); Anion Gap 19 mmol/L (2-11); Blood Urea Nitrogen 24 mg/dL (6-24); C Reactive Protein 290.21 mg/L (<8.01); CO2 Carbon Dioxide 17 mmol/L (22-32); Calcium 9.6 mg/dL (8.6-10.3); Chloride 101 mmol/L (101-111); Globulin 3.5 g/dL (2-4); Glucose 184 mg/dL (70-100); Potassium 3.9 mmol/L (3.5-5.0); Sodium 137 mmol/L (135-145); Total Protein 6.4 g/dL (6.4-8.9); eGFR CKD-EPI 32.3 (>60)
[2021-04-29] MEDS ORDERED: fentaNYL 100 mcg/2 ml 50 MCG/ML VIAL ONE (15:18)
[2021-04-29 15:36] LABS: Anisocytosis 1+; Hypochromasia 2+
[2021-04-29 15:37] LABS: ABS Lymphocytes 0.3 10^3/ul (1.0-4.8); ABS Neutrophils 1.1 10^3/ul (1.5-7.7); ABS Nucleated RBC 0.1 10^3/ul; Eosinophil % 0.4 %; Lymphocyte % 23.7 %; Mean Platelet Volume 8.1 fL (7.4-10.4); Nucleated Red Blood Cells % 5.9; Platelet Count 60 10^3/uL (150-450)
[2021-04-29 15:38] LABS: Activated Partial Thrombo Time 21.9 seconds (26.0-38.0); INR 1.69 (0.86-1.15)
[2021-04-29] MEDS ORDERED: Norepinephrine 16MCG/ML IVPRE 4,000 MCG/250 ML BAG IV ONE (16:34)
[2021-04-29] MEDS ORDERED: Ondansetron 4 mg VIAL 2 MG/ML 2 ml VIAL IV PRN (16:38)
[2021-04-29] MEDS ORDERED: Vancomycin 1,000 MG - ED ONCE IVPB ONE ×2 (17:00→22:30)
[2021-04-29] MEDS ORDERED: Norepinephrine 16MCG/ML IVPRE 4,000 MCG/250 ML BAG IV SCH (17:00)
[2021-04-29] MEDS ORDERED: Zosyn per Pharmacy NOTE FOLLOW UP SCH (17:00)
[2021-04-29] MEDS ORDERED: Vancomycin per Pharmacy 1 EA NOTE FOLLOW UP SCH (17:00)
[2021-04-29] MEDS ORDERED: Enoxaparin 40 MG/0.4 ML SYR SUBCUT SCH (17:00)
[2021-04-29] MEDS: Hydrocortisone INJ 100 MG/2ML 2 ML VIAL IV SCH (17:43)
[2021-04-29 18:34] LABS: Troponin I 0.37 ng/mL (<0.03)
[2021-04-29] MEDS ORDERED: Hydrocortisone INJ 100 MG/2ML 2 ML VIAL IV ONE (21:00)
[2021-04-29] MEDS: ZOSYN 3.375 GM Q8H per EXTENDED INFUSION IV SCH (22:05)
[2021-04-29] MEDS: Azithromycin 500 mg/250 ml NS 500 MG/250 ML BAG IVPB SCH (22:05)
[2021-04-29 23:21] LABS: Urine Appearance Cloudy; Urine Bilirubin Negative (Negative); Urine Blood Negative (Negative); Urine Color Amber; Urine Glucose Negative (Negative); Urine Ketones Negative (Negative); Urine Nitrite Negative (Negative); Urine Protein 2+(100 mg/dL) (Negative); Urine Urobilinogen Negative (Negative)
[2021-04-29 23:35] LABS: Urine Bacteria Absent (Absent); Urine Red Blood Cell 3+(>10/hpf) (Absent); Urine Squamous Epithelial Cell Present (Absent); Urine White Blood Cell 1+(6-10/hpf) (Absent)
[2021-04-29 23:42] LABS: Troponin I 0.38 ng/mL (<0.03)
[2021-04-29] MEDS: Norepinephrine *QUAD STRENGTH* 16 mg/250 mL NS per protocol IV SCH (23:45)
[2021-04-29] MEDS ORDERED: Vasopressin 100 UNITS in D5W 250 ML BAG IV SCH (23:45)
[2021-04-30] MEDS ORDERED: Vasopressin 100 UNITS in D5W 250 ml BAG 245 ML IV SCH (00:15)
[2021-04-30] MEDS ORDERED: NS 0.9% 500 ml BAG 500 ML IV ONE (00:47)
[2021-04-30 00:51] LABS: Urine Specific Gravity > 1.060 (1.002-1.030)
[2021-04-30] MEDS: Hydrocortisone INJ 100 MG/2ML 2 ML VIAL IV SCH ×3 (01:13→17:23)
[2021-04-30 01:17] LABS: PCO2 Arterial 31 mmHg (35-45); PO2 Arterial 77 mmHg (80-100)
[2021-04-30] MEDS: Phenylephrine DRIP 0.2 MG/ML in NS 0.9% 250 ML (IVPREMIX) IV SCH ×3 (01:33→16:12)
[2021-04-30] MEDS ORDERED: Meropenem 2 GM in NS 0.9% 100 ml BAG 100 ML IVPB SCH (02:00)
[2021-04-30] MEDS ORDERED: Gentamicin ADULT 400 MG in NS 0.9% 100 ml BAG 100 ML IVPB SCH (02:30)
[2021-04-30] MEDS ORDERED: NS 0.9% 500 ML BAG IV ONE (03:30)
[2021-04-30] MEDS ORDERED: Gentamicin ADULT per pharmacy 1 NOTE MISC FOLLOW UP PRN (05:07)
[2021-04-30 05:24] LABS: ABS Eosinophils 1.9 10^3/ul (0-0.6); ABS Lymphocytes 1.4 10^3/ul (1.0-4.8); ABS Neutrophils 14.3 10^3/ul (1.5-7.7); Eosinophil % 10.2 %; Hematocrit 24 % (35-47); Hemoglobin 7.5 g/dL (12.0-16.0); Lymphocyte % 7.3 %; Mean Corpuscular HGB Conc 31 g/dL (31-36); Mean Corpuscular Hemoglobin 30 pg (27-31); Mean Corpuscular Volume 97 fL (80-97); Mean Platelet Volume 9.5 fL (7.4-10.4); Nucleated Red Blood Cells % 0.1; Platelet Count 39 10^3/uL (150-450); Red Blood Count 2.48 10^6 /uL (3.70-4.87); Red Cell Distribution Width 18 % (10-15); White Blood Count 18.6 10^3/uL (3.5-10.8)
[2021-04-30 05:31] LABS: Troponin I 0.47 ng/mL (<0.03)
[2021-04-30] MEDS: ZOSYN 3.375 GM Q8H per EXTENDED INFUSION IV SCH (06:02)
[2021-04-30 06:55] LABS: ALT 88 U/L (7-52); AST 161 U/L (13-39); Albumin 2.7 g/dL (3.2-5.2); Albumin/Globulin Ratio 0.8 (1-3); Alkaline Phosphatase 98 U/L (35-149); Anion Gap 20 mmol/L (2-11); Blood Urea Nitrogen 29 mg/dL (6-24); CO2 Carbon Dioxide 15 mmol/L (22-32); Calcium 8.4 mg/dL (8.6-10.3); Chloride 105 mmol/L (101-111); Globulin 3.5 g/dL (2-4); Glucose 164 mg/dL (70-100); Magnesium 1.4 mg/dL (1.9-2.7); Phosphorus 7.1 mg/dL (2.5-5.0); Potassium 4.8 mmol/L (3.5-5.0); Sodium 140 mmol/L (135-145); Total Protein 6.2 g/dL (6.4-8.9); Troponin I 0.86 ng/mL (<0.03); eGFR CKD-EPI 29.5 (>60)
[2021-04-30] MEDS ORDERED: Furosemide 20 mg/2 ml IV VIAL IV SLOW PU ONE (07:04)
[2021-04-30] MEDS ORDERED: Magnesium Sulfate IV 3 GM in NS 0.9% 100 ml BAG 100 ML IVPB ONE (07:04)
[2021-04-30] MEDS ORDERED: Furosemide 40 mg/4 ml IV VIAL ONE (07:10)
[2021-04-30 07:14] LABS: TSH Ultra Thyroid Stim Horm 0.58 mcIU/mL (0.34-5.60)
[2021-04-30 07:56] LABS: Anisocytosis 1+; Hypochromasia 1+
[2021-04-30 07:57] LABS: Polychromasia 1+
[2021-04-30] MEDS ORDERED: Succinylcholine 200 mg VIAL 20 mg/ml 10 ml VIAL (200 mg) ONE ×2 (08:32→11:09)
[2021-04-30] MEDS ORDERED: Meropenem 2 GM in NS 0.9% 100 ML IVPB SCH (09:00)
[2021-04-30] MEDS ORDERED: Desmopressin Acetate 20 MCG in NS 0.9% 50 ML 50 ML IVPB ONE (09:32)
[2021-04-30 10:08] LABS: Activated Partial Thrombo Time 34.4 seconds (26.0-38.0); INR 1.71 (0.86-1.15)
[2021-04-30] MEDS ORDERED: Etomidate 40 mg/20 ml (2 MG/ML) 20 ml VIAL (40 mg) ONE (11:15)
[2021-04-30] MEDS ORDERED: Propofol 10 mg/ml 100 ML BTL 100 ML ONE (11:24)
[2021-04-30] MEDS: Propofol 10 mg/ml 100 ML BTL 100 ML IV SCH ×5 (11:25→22:58)
[2021-04-30] MEDS ORDERED: Sodium Bicarbonate 8.4% SYR 50 ml SYRINGE ONE (11:42)
[2021-04-30] MEDS ORDERED: Lidocaine 1% VIAL 10 MG/ML VIAL ONE (11:48)
[2021-04-30] MEDS ORDERED: Rocuronium 50 mg VIAL 10 mg/ml 5 ml VIAL (50 mg) ONE (11:55)
[2021-04-30] MEDS ORDERED: Rocuronium 50 mg VIAL 10 mg/ml 5 ml VIAL (50 mg) IV ONE (12:34)
[2021-04-30] MEDS ORDERED: Sodium Bicarbonate 8.4% SYR 50 ml SYRINGE IV ONE (12:34)
[2021-04-30 13:39] LABS: Calcium 8.3 mg/dL (8.6-10.3); Magnesium 2.3 mg/dL (1.9-2.7); Potassium 4.9 mmol/L (3.5-5.0); eGFR CKD-EPI 31.6 (>60)
[2021-04-30] MEDS ORDERED: cefTRIAXone 2 GM ADDV.VIAL 2 GM in NS 0.9% 100 ml BAG 100 ML IV SCH (14:00)
[2021-04-30] MEDS ORDERED: Pantoprazole VIAL 40 MG VIAL IV SCH (14:00)
[2021-04-30 14:11] LABS: Mean Platelet Volume 9.4 fL (7.4-10.4); Platelet Count 26 10^3/uL (150-450)
[2021-04-30] MEDS: Chlorhexidine MOUTHWASH 0.12% 15 ML UDC TOPICAL SCH ×3 (16:01→22:58)
[2021-04-30] MEDS: cefTRIAXone 2 GM ADDV.VIAL 2 GM in NS 0.9% 100 ml BAG 100 ML IV SCH (16:06)
[2021-04-30] MEDS: Pantoprazole VIAL 40 MG VIAL IV SCH (16:14)
[2021-04-30] MEDS: Norepinephrine *QUAD STRENGTH* 16 mg/250 mL NS per protocol IV SCH (16:49)
[2021-04-30] MEDS: Azithromycin 500 mg/250 ml NS 500 MG/250 ML BAG IVPB SCH (20:25)
[2021-04-30 20:58] LABS: Activated Partial Thrombo Time 32.6 seconds (26.0-38.0); Fibrinogen 461.2 mg/dL (110.8-404.3); INR 1.76 (0.86-1.15)
[2021-04-30 21:10] LABS: Hematocrit 22 % (35-47); Hemoglobin 7.4 g/dL (12.0-16.0); Mean Corpuscular HGB Conc 34 g/dL (31-36); Mean Corpuscular Hemoglobin 33 pg (27-31); Mean Corpuscular Volume 96 fL (80-97); Mean Platelet Volume 8.9 fL (7.4-10.4); Platelet Count 44 10^3/uL (150-450); Red Blood Count 2.24 10^6 /uL (3.70-4.87); Red Cell Distribution Width 19 % (10-15); White Blood Count 14.4 10^3/uL (3.5-10.8)
[2021-04-30 22:16] LABS: Anisocytosis 1+
[2021-04-30 22:17] LABS: ABS Basophils 0.1 10^3/ul (0-0.2); ABS Eosinophils 0.2 10^3/ul (0-0.6); ABS Lymphocytes 0.4 10^3/ul (1.0-4.8); ABS Monocytes 0.5 10^3/ul (0-0.8); ABS Neutrophils 13.2 10^3/ul (1.5-7.7); Eosinophil % 1.6 %; Nucleated Red Blood Cells % 0.3
[2021-05-01] MEDS: Chlorhexidine MOUTHWASH 0.12% 15 ML UDC TOPICAL SCH ×6 (01:56→22:26)
[2021-05-01] MEDS: Hydrocortisone INJ 100 MG/2ML 2 ML VIAL IV SCH ×3 (01:56→16:42)
[2021-05-01] MEDS: Propofol 10 mg/ml 100 ML BTL 100 ML IV SCH ×9 (02:37→22:40)
[2021-05-01] MEDS: Norepinephrine *QUAD STRENGTH* 16 mg/250 mL NS per protocol IV SCH ×2 (03:04→11:53)
[2021-05-01 04:27] LABS: Albumin 2.8 g/dL (3.2-5.2); CO2 Carbon Dioxide 19 mmol/L (22-32); Calcium 7.8 mg/dL (8.6-10.3); Chloride 102 mmol/L (101-111); Magnesium 2.3 mg/dL (1.9-2.7); Sodium 140 mmol/L (135-145)
[2021-05-01 04:33] LABS: ALT 199 U/L (7-52); Albumin/Globulin Ratio 0.9 (1-3); Alkaline Phosphatase 127 U/L (35-149); Blood Urea Nitrogen 48 mg/dL (6-24); Globulin 3.2 g/dL (2-4); Glucose 217 mg/dL (70-100); eGFR CKD-EPI 33.6 (>60)
[2021-05-01 04:38] LABS: Anion Gap 19 mmol/L (2-11)
[2021-05-01 05:38] LABS: Hematocrit 21 % (35-47); Hemoglobin 6.9 g/dL (12.0-16.0); Mean Corpuscular HGB Conc 33 g/dL (31-36); Mean Corpuscular Hemoglobin 33 pg (27-31); Mean Corpuscular Volume 98 fL (80-97); Mean Platelet Volume 9.8 fL (7.4-10.4); Platelet Count 40 10^3/uL (150-450); Red Blood Count 2.11 10^6 /uL (3.70-4.87); Red Cell Distribution Width 19 % (10-15); White Blood Count 16.5 10^3/uL (3.5-10.8)
[2021-05-01 05:41] LABS: Troponin I 3.02 ng/mL (<0.03)
[2021-05-01 07:39] LABS: Troponin I 2.91 ng/mL (<0.03)
[2021-05-01 07:47] LABS: Albumin 2.5 g/dL (3.2-5.2); CO2 Carbon Dioxide 19 mmol/L (22-32); Calcium 7.2 mg/dL (8.6-10.3); Chloride 103 mmol/L (101-111); Sodium 142 mmol/L (135-145)
[2021-05-01 07:53] LABS: ALT 216 U/L (7-52); Alkaline Phosphatase 129 U/L (35-149); Blood Urea Nitrogen 51 mg/dL (6-24); Globulin 2.5 g/dL (2-4); Glucose 224 mg/dL (70-100); eGFR CKD-EPI 33.6 (>60)
[2021-05-01 07:57] LABS: Anion Gap 20 mmol/L (2-11); Potassium 5.4 mmol/L (3.5-5.0)
[2021-05-01 08:23] LABS: Hematocrit 20 % (35-47); Hemoglobin 6.6 g/dL (12.0-16.0); Mean Corpuscular HGB Conc 33 g/dL (31-36); Mean Corpuscular Hemoglobin 32 pg (27-31); Mean Corpuscular Volume 96 fL (80-97); Mean Platelet Volume 9.3 fL (7.4-10.4); Platelet Count 41 10^3/uL (150-450); Red Blood Count 2.06 10^6 /uL (3.70-4.87); Red Cell Distribution Width 19 % (10-15); White Blood Count 16.4 10^3/uL (3.5-10.8)
[2021-05-01 08:29] LABS: ABS Basophils 0.1 10^3/ul (0-0.2); ABS Eosinophils 0.1 10^3/ul (0-0.6); ABS Lymphocytes 0.8 10^3/ul (1.0-4.8); ABS Monocytes 0.5 10^3/ul (0-0.8); ABS Nucleated RBC 0.1 10^3/ul; Eosinophil % 0.6 %; Lymphocyte % 5.1 %; Nucleated Red Blood Cells % 0.3
[2021-05-01 08:30] LABS: RBC Morphology Normal (Normal)
[2021-05-01] MEDS ORDERED: Furosemide 20 mg/2 ml IV VIAL IV SLOW PU ONE (08:37)
[2021-05-01 09:15] LABS: ABS Basophils 0.1 10^3/ul (0-0.2); ABS Eosinophils 0.1 10^3/ul (0-0.6); ABS Lymphocytes 0.9 10^3/ul (1.0-4.8); ABS Monocytes 0.5 10^3/ul (0-0.8); ABS Neutrophils 14.8 10^3/ul (1.5-7.7); Eosinophil % 0.8 %; Lymphocyte % 5.3 %; Nucleated Red Blood Cells % 0.2
[2021-05-01] MEDS ORDERED: fentaNYL 100 mcg/2 ml 50 MCG/ML VIAL IV SLOW PU ONE (10:00)
[2021-05-01] MEDS ORDERED: fentaNYL 100 mcg/2 ml 50 MCG/ML VIAL ONE (10:01)
[2021-05-01] MEDS ORDERED: fentaNYL INFUSION 50 mcg/mL VL 2,500 MCG/50 ML VIAL IV SCH (11:00)
[2021-05-01] MEDS: fentaNYL 100 mcg/2 ml 50 MCG/ML VIAL IV SLOW PU PRN ×5 (14:04→23:45)
[2021-05-01] MEDS: Pantoprazole VIAL 40 MG VIAL IV SCH (16:42)
[2021-05-01] MEDS: cefTRIAXone 2 GM ADDV.VIAL 2 GM in NS 0.9% 100 ml BAG 100 ML IV SCH (16:43)
[2021-05-01 17:44] LABS: Albumin 2.6 g/dL (3.2-5.2); Albumin/Globulin Ratio 0.9 (1-3); Calcium 7.3 mg/dL (8.6-10.3); Globulin 2.9 g/dL (2-4); Potassium 5.2 mmol/L (3.5-5.0); Total Bilirubin 1.6 mg/dL (0.2-1.0); Total Protein 5.5 g/dL (6.4-8.9); eGFR CKD-EPI 31.8 (>60)
[2021-05-01 17:51] LABS: Hematocrit 22 % (35-47); Mean Corpuscular Volume 95 fL (80-97); Mean Platelet Volume 10.1 fL (7.4-10.4); Platelet Count 40 10^3/uL (150-450); Red Blood Count 2.25 10^6 /uL (3.70-4.87); Red Cell Distribution Width 19 % (10-15); White Blood Count 11.8 10^3/uL (3.5-10.8)
[2021-05-01 17:52] LABS: Hemoglobin 7.2 g/dL (12.0-16.0); Mean Corpuscular HGB Conc 33 g/dL (31-36); Mean Corpuscular Hemoglobin 32 pg (27-31)
[2021-05-01 17:53] LABS: ABS Basophils 0.1 10^3/ul (0-0.2); ABS Lymphocytes 0.7 10^3/ul (1.0-4.8); ABS Monocytes 0.2 10^3/ul (0-0.8); ABS Neutrophils 10.7 10^3/ul (1.5-7.7); Eosinophil % 0.2 %; Lymphocyte % 6.2 %; Nucleated Red Blood Cells % 0.2
[2021-05-01] MEDS ORDERED: Dextrose 50% Syringe 50 ml 25 GM/50 ML SYRINGE IV PUSH PRN (18:36)
[2021-05-01] MEDS ORDERED: Propofol 10 MG/ML 20 ML BTL ONE (22:13)
[2021-05-02] MEDS: Hydrocortisone INJ 100 MG/2ML 2 ML VIAL IV SCH ×3 (00:43→16:25)
[2021-05-02] MEDS: Propofol 10 mg/ml 100 ML BTL 100 ML IV SCH ×11 (00:55→23:09)
[2021-05-02] MEDS: Chlorhexidine MOUTHWASH 0.12% 15 ML UDC TOPICAL SCH ×6 (02:15→22:44)
[2021-05-02] MEDS: Acetaminophen IV 1 GM/100ML 100 ML IV PRN (04:02)
[2021-05-02 05:59] LABS: Hematocrit 20 % (35-47); Mean Corpuscular Volume 93 fL (80-97); Mean Platelet Volume 10.8 fL (7.4-10.4); Platelet Count 42 10^3/uL (150-450); Red Blood Count 2.15 10^6 /uL (3.70-4.87); Red Cell Distribution Width 18 % (10-15); White Blood Count 12.6 10^3/uL (3.5-10.8)
[2021-05-02 06:26] LABS: Potassium, Whole Blood 5.3 mmol/L (3.4-4.5)
[2021-05-02 06:27] LABS: CO2 Carbon Dioxide 19 mmol/L (22-32); Glucose 328 mg/dL (70-100); eGFR CKD-EPI 32.7 (>60)
[2021-05-02 06:28] LABS: Albumin 2.4 g/dL (3.2-5.2); Albumin/Globulin Ratio 0.9 (1-3); Alkaline Phosphatase 133 U/L (35-149); Calcium 6.8 mg/dL (8.6-10.3); Globulin 2.6 g/dL (2-4)
[2021-05-02 06:39] LABS: Hemoglobin 6.7 g/dL (12.0-16.0)
[2021-05-02 06:41] LABS: Mean Corpuscular HGB Conc 34 g/dL (31-36); Mean Corpuscular Hemoglobin 31 pg (27-31)
[2021-05-02 07:12] LABS: ALT 166 U/L (7-52); Anion Gap 18 mmol/L (2-11); Blood Urea Nitrogen 75 mg/dL (6-24); Chloride 103 mmol/L (101-111); Sodium 140 mmol/L (135-145)
[2021-05-02] MEDS: Norepinephrine 16MCG/ML IVPRE 4,000 MCG/250 ML BAG IV SCH ×2 (08:01→15:07)
[2021-05-02 09:04] LABS: Hypochromasia 1+; Tear Drop Cells 1+
[2021-05-02] MEDS: Desmopressin Acetate 20 MCG in NS 0.9% 50 ML 50 ML IVPB ONE ×2 (13:12→13:22)
[2021-05-02] MEDS: cefTRIAXone 2 GM ADDV.VIAL 2 GM in NS 0.9% 100 ml BAG 100 ML IV SCH (16:24)
[2021-05-02] MEDS: Pantoprazole VIAL 40 MG VIAL IV SCH (16:25)
[2021-05-03] MEDS: Chlorhexidine MOUTHWASH 0.12% 15 ML UDC TOPICAL SCH ×6 (01:10→21:17)
[2021-05-03] MEDS: Hydrocortisone INJ 100 MG/2ML 2 ML VIAL IV SCH ×4 (01:11→21:16)
[2021-05-03] MEDS: Propofol 10 mg/ml 100 ML BTL 100 ML IV SCH ×7 (01:29→21:15)
[2021-05-03 04:55] LABS: Hematocrit 20 % (35-47); Mean Corpuscular Volume 95 fL (80-97); Mean Platelet Volume 9.9 fL (7.4-10.4); Platelet Count 44 10^3/uL (150-450); Red Blood Count 2.13 10^6 /uL (3.70-4.87); Red Cell Distribution Width 18 % (10-15); White Blood Count 8.1 10^3/uL (3.5-10.8)
[2021-05-03 05:25] LABS: ABS Lymphocytes 0.7 10^3/ul (1.0-4.8); ABS Monocytes 0.1 10^3/ul (0-0.8); ABS Neutrophils 7.3 10^3/ul (1.5-7.7); ALT 126 U/L (7-52); Albumin 2.7 g/dL (3.2-5.2); Albumin/Globulin Ratio 0.9 (1-3); Alkaline Phosphatase 112 U/L (35-149); Blood Urea Nitrogen 85 mg/dL (6-24); CO2 Carbon Dioxide 21 mmol/L (22-32); Calcium 7.4 mg/dL (8.6-10.3); Chloride 106 mmol/L (101-111); Eosinophil % 0.1 %; Globulin 3.1 g/dL (2-4); Glucose 366 mg/dL (70-100); Nucleated Red Blood Cells % 0.1; RBC Morphology Normal (Normal); Sodium 139 mmol/L (135-145); Total Protein 5.8 g/dL (6.4-8.9); eGFR CKD-EPI 36.9 (>60)
[2021-05-03] MEDS: Acetaminophen IV 1 GM/100ML 100 ML IV PRN ×2 (06:17→12:37)
[2021-05-03 06:39] LABS: AST Redraw 134 U/L (13-39); Magnesium 3.2 mg/dL (1.9-2.7); Phosphorus 4.7 mg/dL (2.5-5.0)
[2021-05-03 06:51] LABS: Potassium, Whole Blood 6.3 mmol/L (3.4-4.5)
[2021-05-03] MEDS ORDERED: Furosemide 40 mg/4 ml IV VIAL IV SLOW PU ONE (09:42)
[2021-05-03 10:18] LABS: C Reactive Protein 162.64 mg/L (<8.01)
[2021-05-03] MEDS ORDERED: Rocuronium 50 mg VIAL 10 mg/ml 5 ml VIAL (50 mg) ONE (11:53)
[2021-05-03] MEDS ORDERED: Rocuronium 50 mg VIAL 10 mg/ml 5 ml VIAL (50 mg) IV ONE (12:35)
[2021-05-03] MEDS ORDERED: Sodium Polystyrene ORAL.SUSP 15 GM/60 ML BTL PO ONE (13:22)
[2021-05-03] MEDS: Pantoprazole VIAL 40 MG VIAL IV SCH (16:24)
[2021-05-03] MEDS: cefTRIAXone 2 GM ADDV.VIAL 2 GM in NS 0.9% 100 ml BAG 100 ML IV SCH (16:24)
[2021-05-03 18:12] LABS: Calcium 7.7 mg/dL (8.6-10.3); Glucose 382 mg/dL (70-100)
[2021-05-03 18:13] LABS: Blood Urea Nitrogen 86 mg/dL (6-24); CO2 Carbon Dioxide 23 mmol/L (22-32); eGFR CKD-EPI 36.1 (>60)
[2021-05-03 18:29] LABS: Potassium, Whole Blood 4.9 mmol/L (3.4-4.5)
[2021-05-04] MEDS: Chlorhexidine MOUTHWASH 0.12% 15 ML UDC TOPICAL SCH ×6 (00:59→21:13)
[2021-05-04] MEDS: Propofol 10 mg/ml 100 ML BTL 100 ML IV SCH ×4 (04:41→08:36)
[2021-05-04 05:22] LABS: Albumin 2.6 g/dL (3.2-5.2); CO2 Carbon Dioxide 24 mmol/L (22-32); Calcium 7.9 mg/dL (8.6-10.3); Chloride 108 mmol/L (101-111); Magnesium 2.8 mg/dL (1.9-2.7); Sodium 146 mmol/L (135-145)
[2021-05-04 05:26] LABS: Albumin/Globulin Ratio 0.8 (1-3); Alkaline Phosphatase 144 U/L (35-149); Globulin 3.3 g/dL (2-4); Glucose 342 mg/dL (70-100); Total Protein 5.9 g/dL (6.4-8.9); eGFR CKD-EPI 47.4 (>60)
[2021-05-04 05:29] LABS: Potassium, Whole Blood 5.8 mmol/L (3.4-4.5)
[2021-05-04 05:37] LABS: RBC Morphology Normal (Normal)
[2021-05-04 05:38] LABS: ABS Lymphocytes 1.1 10^3/ul (1.0-4.8); ABS Neutrophils 5.2 10^3/ul (1.5-7.7); Eosinophil % 0.2 %; Hematocrit 21 % (35-47); Lymphocyte % 16.7 %; Mean Corpuscular Volume 94 fL (80-97); Mean Platelet Volume 9.7 fL (7.4-10.4); Nucleated Red Blood Cells % 0.7; Platelet Count 38 10^3/uL (150-450); Red Blood Count 2.19 10^6 /uL (3.70-4.87); Red Cell Distribution Width 17 % (10-15); White Blood Count 6.3 10^3/uL (3.5-10.8)
[2021-05-04] MEDS ORDERED: Sodium Polystyrene ORAL.SUSP 15 GM/60 ML BTL PO ONE (05:55)
[2021-05-04] MEDS ORDERED: Furosemide 40 mg/4 ml IV VIAL IV SLOW PU ONE (05:57)
[2021-05-04 06:00] LABS: PCO2 Arterial 36 mmHg (35-45); PO2 Arterial 77 mmHg (80-100)
[2021-05-04 06:02] LABS: ALT 102 U/L (7-52); AST 97 U/L (13-39); Blood Urea Nitrogen 72 mg/dL (6-24)
[2021-05-04] MEDS: Acetaminophen IV 1 GM/100ML 100 ML IV PRN ×2 (06:32→13:04)
[2021-05-04] MEDS: Hydrocortisone INJ 100 MG/2ML 2 ML VIAL IV SCH (07:47)
[2021-05-04] MEDS: Insulin GLARGINE 100 un/ml 10 ml VIAL SUBCUT SCH (08:36)
[2021-05-04 09:35] LABS: Hemoglobin 6.7 g/dL (12.0-16.0); Mean Corpuscular Hemoglobin 32 pg (27-31)
[2021-05-04 09:36] LABS: Mean Corpuscular HGB Conc 34 g/dL (31-36)
[2021-05-04 09:40] LABS: Hemoglobin 6.9 g/dL (12.0-16.0); Mean Corpuscular HGB Conc 33 g/dL (31-36); Mean Corpuscular Hemoglobin 32 pg (27-31)
[2021-05-04 09:41] LABS: Cholesterol 234 mg/dL; Creatine Kinase 107 U/L (10-223); HDL Cholesterol 6.1 mg/dL; Triglycerides 3502 mg/dL
[2021-05-04 09:55] LABS: LDL Cholesterol Direct 63 mg/dL
[2021-05-04] MEDS ORDERED: fentaNYL 100 mcg/2 ml 50 MCG/ML VIAL IV SLOW PU ONE (10:21)
[2021-05-04] MEDS ORDERED: fentaNYL INFUSION 50 mcg/mL VL 2,500 MCG/50 ML VIAL IV SCH (11:00)
[2021-05-04] MEDS ORDERED: fentaNYL 100 mcg/2 ml 50 MCG/ML VIAL ONE (11:25)
[2021-05-04] MEDS ORDERED: Lorazepam PYXIS KEY PRN (13:23)
[2021-05-04] MEDS ORDERED: LORazepam 2 mg VIAL 1 ml IV PUSH PRN (13:23)
[2021-05-04 13:38] LABS: Calcium 8.2 mg/dL (8.6-10.3); Potassium 3.7 mmol/L (3.5-5.0); eGFR CKD-EPI 48.7 (>60)
[2021-05-04] MEDS ORDERED: LORazepam 2 mg VIAL 1 ml ONE (14:54)
[2021-05-04] MEDS ORDERED: LORazepam 2 mg VIAL 1 ml IV PUSH ONE (14:54)
[2021-05-04] MEDS ORDERED: Lorazepam PYXIS KEY ONE (14:54)
[2021-05-04] MEDS ORDERED: Anidulafungin 200 MG in NS 0.9% 250 ml 200 ML IVPB ONE (17:00)
[2021-05-04] MEDS: cefTRIAXone 2 GM ADDV.VIAL 2 GM in NS 0.9% 100 ml BAG 100 ML IV SCH (17:14)
[2021-05-04] MEDS: Pantoprazole VIAL 40 MG VIAL IV SCH (17:14)
[2021-05-04] MEDS: fentaNYL 100 mcg/2 ml 50 MCG/ML VIAL IV SLOW PU PRN (22:05)
[2021-05-05] MEDS: Chlorhexidine MOUTHWASH 0.12% 15 ML UDC TOPICAL SCH ×3 (00:12→09:04)
[2021-05-05] MEDS ORDERED: Midazolam 5 mg/5 ml VIAL 1 mg/ml 5 ml VIAL (5 mg) IV SLOW PU ONE (02:30)
[2021-05-05] MEDS ORDERED: Midazolam 5 mg/5 ml VIAL 1 mg/ml 5 ml VIAL (5 mg) ONE (02:31)
[2021-05-05] MEDS ORDERED: Succinylcholine 200 mg VIAL 20 mg/ml 10 ml VIAL (200 mg) ONE (02:41)
[2021-05-05] MEDS ORDERED: Succinylcholine 200 mg VIAL 20 mg/ml 10 ml VIAL (200 mg) IV ONE (02:52)
[2021-05-05] MEDS ORDERED: Etomidate 20 mg/10 ml 2 MG/ML 10 ml VIAL IV ONE (02:52)
[2021-05-05] MEDS: fentaNYL 100 mcg/2 ml 50 MCG/ML VIAL IV SLOW PU ONE ×2 (03:29→03:42)
[2021-05-05] MEDS ORDERED: fentaNYL 250 mcg/5 ml 50 MCG/ML 5 ml VIAL (250 MCG) IV ONE (04:00)
[2021-05-05] MEDS ORDERED: fentaNYL INFUSION 50 mcg/mL VL 2,500 MCG/50 ML VIAL IV SCH (04:29)
[2021-05-05] MEDS: fentaNYL 100 mcg/2 ml 50 MCG/ML VIAL IV SLOW PU PRN ×2 (05:51→09:53)
[2021-05-05 06:14] LABS: Hematocrit 26 % (35-47); Hemoglobin 8.9 g/dL (12.0-16.0); Mean Corpuscular HGB Conc 34 g/dL (31-36); Mean Corpuscular Hemoglobin 32 pg (27-31); Mean Corpuscular Volume 95 fL (80-97); Mean Platelet Volume 10.4 fL (7.4-10.4); Platelet Count 35 10^3/uL (150-450); Red Blood Count 2.74 10^6 /uL (3.70-4.87); Red Cell Distribution Width 17 % (10-15); White Blood Count 8.8 10^3/uL (3.5-10.8)
[2021-05-05 06:25] LABS: ALT 98 U/L (7-52); Albumin 2.6 g/dL (3.2-5.2); Albumin/Globulin Ratio 0.7 (1-3); Alkaline Phosphatase 172 U/L (35-149); Blood Urea Nitrogen 54 mg/dL (6-24); CO2 Carbon Dioxide 31 mmol/L (22-32); Calcium 8.4 mg/dL (8.6-10.3); Globulin 3.9 g/dL (2-4); Glucose 223 mg/dL (70-100); Total Protein 6.5 g/dL (6.4-8.9); eGFR CKD-EPI 61.2 (>60)
[2021-05-05 06:44] LABS: Chloride 113 mmol/L (101-111); Sodium 156 mmol/L (135-145)
[2021-05-05 06:45] LABS: Anion Gap 12 mmol/L (2-11)
[2021-05-05 07:32] LABS: Potassium, Whole Blood 2.9 mmol/L (3.4-4.5)
[2021-05-05] MEDS: KCL 20 MEQ/100 ML IVPREMIX 20 MEQ/100 ML BAG IV SCH ×5 (07:51→23:31)
[2021-05-05] MEDS ORDERED: Ziprasidone IM 20 mg VIAL 1 ml VIAL IM ONE (08:31)
[2021-05-05] MEDS ORDERED: LORazepam 2 mg VIAL 1 ml IV PUSH PRN (08:33)
[2021-05-05 08:37] LABS: ABS Eosinophils 0.1 10^3/ul (0-0.6); ABS Lymphocytes 1.4 10^3/ul (1.0-4.8); ABS Monocytes 0.5 10^3/ul (0-0.8); ABS Neutrophils 6.9 10^3/ul (1.5-7.7); ABS Nucleated RBC 0.1 10^3/ul; Eosinophil % 0.7 %; Lymphocyte % 15.7 %; Nucleated Red Blood Cells % 1.5
[2021-05-05] MEDS ORDERED: NS 0.45% 1000 ml BAG 1,000 ML IV SCH (09:00)
[2021-05-05] MEDS: Insulin GLARGINE 100 un/ml 10 ml VIAL SUBCUT SCH (09:04)
[2021-05-05] MEDS: NS 0.45% 1000 ml BAG 1,000 ML IV SCH ×2 (09:05→18:24)
[2021-05-05] MEDS: Acetaminophen IV 1 GM/100ML 100 ML IV PRN ×2 (09:19→19:18)
[2021-05-05 12:53] LABS: Blood Urea Nitrogen 49 mg/dL (6-24); CO2 Carbon Dioxide 31 mmol/L (22-32); Calcium 8.5 mg/dL (8.6-10.3); Glucose 254 mg/dL (70-100); eGFR CKD-EPI 62.6 (>60)
[2021-05-05 12:55] LABS: Chloride 115 mmol/L (101-111); Sodium 157 mmol/L (135-145)
[2021-05-05 13:03] LABS: Anion Gap 11 mmol/L (2-11)
[2021-05-05] MEDS: Pantoprazole VIAL 40 MG VIAL IV SCH (16:41)
[2021-05-05] MEDS: Anidulafungin 100 MG in NS 0.9% 100 ML IVPB SCH (16:41)
[2021-05-05] MEDS: cefTRIAXone 2 GM ADDV.VIAL 2 GM in NS 0.9% 100 ml BAG 100 ML IV SCH (16:41)
[2021-05-05 18:03] LABS: Calcium 8.1 mg/dL (8.6-10.3); Potassium 2.8 mmol/L (3.5-5.0)
[2021-05-05 18:09] LABS: eGFR CKD-EPI 68.2 (>60)
[2021-05-06 01:04] LABS: Calcium 8.2 mg/dL (8.6-10.3); Potassium 3.2 mmol/L (3.5-5.0); eGFR CKD-EPI 73.6 (>60)
[2021-05-06] MEDS: NS 0.45% 1000 ml BAG 1,000 ML IV SCH (04:30)
[2021-05-06 04:34] LABS: ABS Lymphocytes 1.2 10^3/ul (1.0-4.8); ABS Monocytes 0.4 10^3/ul (0-0.8); ABS Neutrophils 5.3 10^3/ul (1.5-7.7); Eosinophil % 0.6 %; Hematocrit 24 % (35-47); Lymphocyte % 16.5 %; Mean Corpuscular Volume 95 fL (80-97); Mean Platelet Volume 10.6 fL (7.4-10.4); Nucleated Red Blood Cells % 0.6; Platelet Count 38 10^3/uL (150-450); Red Blood Count 2.56 10^6 /uL (3.70-4.87); Red Cell Distribution Width 17 % (10-15)
[2021-05-06 04:35] LABS: Hemoglobin 8.2 g/dL (12.0-16.0)
[2021-05-06 04:36] LABS: Mean Corpuscular HGB Conc 34 g/dL (31-36); Mean Corpuscular Hemoglobin 32 pg (27-31)
[2021-05-06 04:40] LABS: Magnesium 1.7 mg/dL (1.9-2.7); Phosphorus 2.1 mg/dL (2.5-5.0); eGFR CKD-EPI 77.8 (>60)
[2021-05-06] MEDS ORDERED: Magnesium Sulfate 2 gm BAG 2 GM/50 ML BAG IVPB ONE (07:12)
[2021-05-06] MEDS ORDERED: KCL 20 MEQ/100 ML IVPREMIX 20 MEQ/100 ML BAG IV SCH (08:00)
[2021-05-06] MEDS: KCL premix 10 MEQ/50 ML x 6 RUNS IV SCH ×6 (09:09→16:49)
[2021-05-06] MEDS: Insulin GLARGINE 100 un/ml 10 ml VIAL SUBCUT SCH (12:34)
[2021-05-06] MEDS ORDERED: D5W 1000 ml BAG 1,000 ML IV SCH (15:00)
[2021-05-06] MEDS: cefTRIAXone 2 GM ADDV.VIAL 2 GM in NS 0.9% 100 ml BAG 100 ML IV SCH (16:42)
[2021-05-06] MEDS: Pantoprazole VIAL 40 MG VIAL IV SCH (16:42)
[2021-05-06 16:54] LABS: Blood Urea Nitrogen 36 mg/dL (6-24); CO2 Carbon Dioxide 30 mmol/L (22-32); Calcium 7.8 mg/dL (8.6-10.3); Chloride 110 mmol/L (101-111); Potassium 3.5 mmol/L (3.5-5.0); eGFR CKD-EPI 75.7 (>60)
[2021-05-06 16:55] LABS: Anion Gap 8 mmol/L (2-11); Sodium 148 mmol/L (135-145)
[2021-05-06 17:02] LABS: Glucose 559 mg/dL (70-100)
[2021-05-06 17:12] LABS: Glucose Confirmatory 559 mg/dL (70-100)
[2021-05-06] MEDS ORDERED: Dextrose 50% Syringe 50 ml 25 GM/50 ML SYRINGE IV PUSH PRN (17:21)
[2021-05-06] MEDS ORDERED: NS 0.45% 1000 ml BAG 1,000 ML IV SCH (18:00)
[2021-05-06] MEDS: Anidulafungin 100 MG in NS 0.9% 100 ML IVPB SCH (18:01)
[2021-05-06] MEDS: KCL 10 MEQ/50 ML IVPREMIX 10 MEQ/50 ML BAG IV SCH ×3 (18:47→23:16)
[2021-05-06 21:04] LABS: Glucose Confirmatory 458 mg/dL (70-100)
[2021-05-06] MEDS: Acetaminophen IV 1 GM/100ML VI 100 ML IV PRN (22:52)
[2021-05-07] MEDS: Insulin GLARGINE 100 un/ml 10 ml VIAL SUBCUT SCH (08:54)
[2021-05-07] MEDS ORDERED: Insulin GLARGINE 100 un/ml 10 ml VIAL SUBCUT SCH (09:00)
[2021-05-07 09:16] LABS: ABS Lymphocytes 1.2 10^3/ul (1.0-4.8); ABS Monocytes 0.2 10^3/ul (0-0.8); ABS Neutrophils 4.2 10^3/ul (1.5-7.7); Eosinophil % 0.3 %; Hematocrit 24 % (35-47); Lymphocyte % 20.7 %; Mean Corpuscular HGB Conc 34 g/dL (31-36); Mean Corpuscular Hemoglobin 32 pg (27-31); Mean Corpuscular Volume 94 fL (80-97); Mean Platelet Volume 9.9 fL (7.4-10.4); Nucleated Red Blood Cells % 0.5; Platelet Count 37 10^3/uL (150-450); Red Blood Count 2.52 10^6 /uL (3.70-4.87); Red Cell Distribution Width 17 % (10-15); White Blood Count 5.7 10^3/uL (3.5-10.8)
[2021-05-07 09:34] LABS: Calcium 8.3 mg/dL (8.6-10.3); HDL Cholesterol 17.8 mg/dL; Magnesium 1.7 mg/dL (1.9-2.7); Potassium 2.8 mmol/L (3.5-5.0); eGFR CKD-EPI 83.6 (>60)
[2021-05-07] MEDS ORDERED: Potassium Chlor 20 meq TAB.ER PO ONE ×2 (10:08→16:25)
[2021-05-07] MEDS ORDERED: Magnesium Sulfate 2 gm BAG 2 GM/50 ML BAG IVPB ONE (10:23)
[2021-05-07] MEDS: KCL 10 MEQ/50 ML IVPREMIX 10 MEQ/50 ML BAG IV SCH ×6 (12:06→20:47)
[2021-05-07] MEDS ORDERED: NS 0.9% 500 ml BAG 500 ML IV ONE (12:15)
[2021-05-07] MEDS: cefTRIAXone 2 GM ADDV.VIAL 2 GM in NS 0.9% 100 ml BAG 100 ML IV SCH (15:22)
[2021-05-07] MEDS: Pantoprazole VIAL 40 MG VIAL IV SCH (15:23)
[2021-05-07 16:14] LABS: Calcium 7.8 mg/dL (8.6-10.3); eGFR CKD-EPI 101.4 (>60)
[2021-05-07] MEDS: Anidulafungin 100 MG in NS 0.9% 100 ML IVPB SCH (18:16)
[2021-05-08 08:26] LABS: ABS Lymphocytes 0.7 10^3/ul (1.0-4.8); ABS Monocytes 0.2 10^3/ul (0-0.8); ABS Neutrophils 3.6 10^3/ul (1.5-7.7); Eosinophil % 0.6 %; Hematocrit 25 % (35-47); Lymphocyte % 15.4 %; Mean Corpuscular HGB Conc 32 g/dL (31-36); Mean Corpuscular Hemoglobin 30 pg (27-31); Mean Corpuscular Volume 94 fL (80-97); Mean Platelet Volume 10.3 fL (7.4-10.4); Nucleated Red Blood Cells % 0.6; Platelet Count 41 10^3/uL (150-450); Red Blood Count 2.63 10^6 /uL (3.70-4.87); Red Cell Distribution Width 17 % (10-15); White Blood Count 4.5 10^3/uL (3.5-10.8)
[2021-05-08] MEDS: Insulin GLARGINE 100 un/ml 10 ml VIAL SUBCUT SCH (08:48)
[2021-05-08 08:53] LABS: Calcium 8.2 mg/dL (8.6-10.3); Magnesium 1.7 mg/dL (1.9-2.7); Potassium 3.2 mmol/L (3.5-5.0); eGFR CKD-EPI 102.5 (>60)
[2021-05-08] MEDS ORDERED: Magnesium Sulfate 2 gm BAG 2 GM/50 ML BAG IVPB ONE (08:59)
[2021-05-08] MEDS ORDERED: Potassium Chlor 20 meq TAB.ER PO SCH (09:00)
[2021-05-08] MEDS ORDERED: Furosemide 40 mg/4 ml IV VIAL IV ONE (10:00)
[2021-05-08] MEDS: Potassium Chloride LIQUID 20 MEQ/15 ML LIQUID PO SCH ×2 (11:21→11:29)
[2021-05-08] MEDS: KCL 10 MEQ/50 ML IVPREMIX 10 MEQ/50 ML BAG IV SCH ×4 (12:05→17:11)
[2021-05-08] MEDS: Pantoprazole VIAL 40 MG VIAL IV SCH (16:18)
[2021-05-08] MEDS: cefTRIAXone 2 GM ADDV.VIAL 2 GM in NS 0.9% 100 ml BAG 100 ML IV SCH (16:22)
[2021-05-08] MEDS: Anidulafungin 100 MG in NS 0.9% 100 ML IVPB SCH (19:44)
[2021-05-08] MEDS: Acetaminophen IV 1 GM/100ML VI 100 ML IV PRN (23:51)
[2021-05-09 07:25] LABS: Calcium 8.5 mg/dL (8.6-10.3); Magnesium 1.7 mg/dL (1.9-2.7); Potassium 3.1 mmol/L (3.5-5.0); eGFR CKD-EPI 100.6 (>60)
[2021-05-09 07:28] LABS: ABS Lymphocytes 0.7 10^3/ul (1.0-4.8); ABS Monocytes 0.1 10^3/ul (0-0.8); ABS Neutrophils 3.3 10^3/ul (1.5-7.7); Eosinophil % 0.6 %; Hematocrit 23 % (35-47); Hemoglobin 7.5 g/dL (12.0-16.0); Lymphocyte % 16.2 %; Mean Corpuscular HGB Conc 33 g/dL (31-36); Mean Corpuscular Hemoglobin 31 pg (27-31); Mean Corpuscular Volume 94 fL (80-97); Nucleated Red Blood Cells % 0.3; Platelet Count 43 10^3/uL (150-450); Red Blood Count 2.45 10^6 /uL (3.70-4.87); Red Cell Distribution Width 17 % (10-15); White Blood Count 4.1 10^3/uL (3.5-10.8)
[2021-05-09] MEDS ORDERED: Potassium Chloride LIQUID 20 MEQ/15 ML LIQUID PO ONE (07:44)
[2021-05-09] MEDS ORDERED: Magnesium Sulfate 2 gm BAG 2 GM/50 ML BAG IVPB ONE (07:45)
[2021-05-09] MEDS: Insulin GLARGINE 100 un/ml 10 ml VIAL SUBCUT SCH (08:15)
[2021-05-09] MEDS: Potassium Chloride LIQUID 20 MEQ/15 ML LIQUID PO SCH (08:25)
[2021-05-09] MEDS ORDERED: Furosemide 40 mg/4 ml IV VIAL IV ONE (09:51)
[2021-05-09] MEDS: KCL 10 MEQ/50 ML IVPREMIX 10 MEQ/50 ML BAG IV SCH ×5 (10:33→15:54)
[2021-05-09] MEDS: Pantoprazole VIAL 40 MG VIAL IV SCH (16:22)
[2021-05-09] MEDS: cefTRIAXone 2 GM ADDV.VIAL 2 GM in NS 0.9% 100 ml BAG 100 ML IV SCH (16:26)
[2021-05-10] MEDS ORDERED: Magnesium Sulfate 2 gm BAG 2 GM/50 ML BAG IVPB ONE (07:22)
[2021-05-10] MEDS ORDERED: KCL 10 MEQ/50 ML IVPREMIX 10 MEQ/50 ML BAG IV SCH (08:00)
[2021-05-10] MEDS: Insulin GLARGINE 100 un/ml 10 ml VIAL SUBCUT SCH (08:46)
[2021-05-10] MEDS: Acetaminophen IV 1 GM/100ML VI 100 ML IV PRN (08:58)
[2021-05-10 10:50] LABS: ABS Lymphocytes 0.7 10^3/ul (1.0-4.8); ABS Monocytes 0.1 10^3/ul (0-0.8); ABS Neutrophils 2.7 10^3/ul (1.5-7.7); Eosinophil % 0.3 %; Hematocrit 23 % (35-47); Hemoglobin 7.6 g/dL (12.0-16.0); Lymphocyte % 18.7 %; Mean Corpuscular HGB Conc 33 g/dL (31-36); Mean Corpuscular Hemoglobin 31 pg (27-31); Mean Corpuscular Volume 94 fL (80-97); Mean Platelet Volume 9.2 fL (7.4-10.4); Nucleated Red Blood Cells % 0.2; Platelet Count 58 10^3/uL (150-450); Red Blood Count 2.47 10^6 /uL (3.70-4.87); Red Cell Distribution Width 17 % (10-15); White Blood Count 3.6 10^3/uL (3.5-10.8)
[2021-05-10 11:02] LABS: Albumin 2.8 g/dL (3.2-5.2); Albumin/Globulin Ratio 0.9 (1-3); Calcium 8.9 mg/dL (8.6-10.3); Globulin 3.1 g/dL (2-4); Magnesium 1.7 mg/dL (1.9-2.7); Potassium 3.1 mmol/L (3.5-5.0); Total Bilirubin 0.7 mg/dL (0.2-1.0); Total Protein 5.9 g/dL (6.4-8.9); eGFR CKD-EPI 94.7 (>60)
[2021-05-10] MEDS ORDERED: Magnesium Sulfate IV 3 GM in NS 0.9% 100 ml BAG 100 ML IVPB ONE (12:18)
[2021-05-10] MEDS: KCL 10 MEQ/50 ML IVPREMIX 10 MEQ/50 ML BAG IV SCH ×3 (13:15→16:18)
[2021-05-10] MEDS: Pantoprazole VIAL 40 MG VIAL IV SCH (16:17)
[2021-05-10] MEDS: cefTRIAXone 2 GM ADDV.VIAL 2 GM in NS 0.9% 100 ml BAG 100 ML IV SCH (16:17)
[2021-05-11 05:48] LABS: Calcium 8.8 mg/dL (8.6-10.3); Potassium 3.5 mmol/L (3.5-5.0)
[2021-05-11 05:54] LABS: eGFR CKD-EPI 86.1 (>60)
[2021-05-11] MEDS: Insulin GLARGINE 100 un/ml 10 ml VIAL SUBCUT SCH (09:14)
[2021-05-11 10:38] LABS: ABS Lymphocytes 0.8 10^3/ul (1.0-4.8); ABS Monocytes 0.1 10^3/ul (0-0.8); ABS Neutrophils 2.3 10^3/ul (1.5-7.7); Eosinophil % 0.3 %; Hematocrit 23 % (35-47); Hemoglobin 7.5 g/dL (12.0-16.0); Lymphocyte % 23.5 %; Mean Corpuscular HGB Conc 32 g/dL (31-36); Mean Corpuscular Hemoglobin 30 pg (27-31); Mean Corpuscular Volume 94 fL (80-97); Nucleated Red Blood Cells % 0.3; Platelet Count 74 10^3/uL (150-450); Red Blood Count 2.49 10^6 /uL (3.70-4.87); Red Cell Distribution Width 17 % (10-15); White Blood Count 3.3 10^3/uL (3.5-10.8)
[2021-05-11] MEDS: Pantoprazole VIAL 40 MG VIAL IV SCH (16:01)
[2021-05-11] MEDS: cefTRIAXone 2 GM ADDV.VIAL 2 GM in NS 0.9% 100 ml BAG 100 ML IV SCH (16:02)
[2021-05-12 07:13] LABS: ABS Lymphocytes 0.8 10^3/ul (1.0-4.8); ABS Monocytes 0.1 10^3/ul (0-0.8); ABS Neutrophils 1.6 10^3/ul (1.5-7.7); Eosinophil % 0.5 %; Hematocrit 23 % (35-47); Hemoglobin 7.3 g/dL (12.0-16.0); Lymphocyte % 30.8 %; Mean Corpuscular HGB Conc 32 g/dL (31-36); Mean Corpuscular Hemoglobin 31 pg (27-31); Mean Corpuscular Volume 95 fL (80-97); Mean Platelet Volume 8.7 fL (7.4-10.4); Nucleated Red Blood Cells % 0.1; Platelet Count 89 10^3/uL (150-450); Red Blood Count 2.41 10^6 /uL (3.70-4.87); Red Cell Distribution Width 18 % (10-15); White Blood Count 2.6 10^3/uL (3.5-10.8)
[2021-05-12 07:22] LABS: Calcium 9.3 mg/dL (8.6-10.3); Magnesium 1.6 mg/dL (1.9-2.7); Potassium 3.1 mmol/L (3.5-5.0); eGFR CKD-EPI 97.9 (>60)
[2021-05-12] MEDS ORDERED: Magnesium Sulfate 2 gm BAG 2 GM/50 ML BAG IVPB ONE (08:04)
[2021-05-12] MEDS: Insulin GLARGINE 100 un/ml 10 ml VIAL SUBCUT SCH (09:42)
[2021-05-12] MEDS ORDERED: ELTROMBOPAG 75 MG PO SCH ×2 (11:00→18:00)
[2021-05-12] MEDS ORDERED: Potassium Chlor 20 meq TAB.ER PO ONE (16:00)
[2021-05-12] MEDS ORDERED: ELTROMBOPAG 50 MG PO SCH (18:00)
[2021-05-12] MEDS: Enoxaparin 40 MG/0.4 ML SYR SUBCUT SCH (20:07)
[2021-05-12] MEDS: ELTROMBOPAG 75 MG PO SCH (20:08)
[2021-05-12] MEDS: ELTROMBOPAG 50 MG PO SCH (20:08)
[2021-05-13 06:44] LABS: ABS Lymphocytes 0.9 10^3/ul (1.0-4.8); ABS Monocytes 0.1 10^3/ul (0-0.8); ABS Neutrophils 1.3 10^3/ul (1.5-7.7); Eosinophil % 1.4 %; Hematocrit 23 % (35-47); Hemoglobin 7.2 g/dL (12.0-16.0); Lymphocyte % 35.8 %; Mean Corpuscular HGB Conc 32 g/dL (31-36); Mean Corpuscular Hemoglobin 31 pg (27-31); Mean Corpuscular Volume 96 fL (80-97); Mean Platelet Volume 8.9 fL (7.4-10.4); Nucleated Red Blood Cells % 0.2; Platelet Count 98 10^3/uL (150-450); Red Blood Count 2.35 10^6 /uL (3.70-4.87); Red Cell Distribution Width 18 % (10-15); White Blood Count 2.4 10^3/uL (3.5-10.8)
[2021-05-13 06:58] LABS: Calcium 9.3 mg/dL (8.6-10.3); Magnesium 2.1 mg/dL (1.9-2.7); Potassium 3.5 mmol/L (3.5-5.0); eGFR CKD-EPI 84.8 (>60)
[2021-05-13 07:41] LABS: Albumin 3.1 g/dL (3.2-5.2); Albumin/Globulin Ratio 1.1 (1-3); Direct Bilirubin 0.1 mg/dL (0.03-0.18); Globulin 2.8 g/dL (2-4); Indirect Bilirubin 0.5 mg/dL (0.3-1.0); Total Bilirubin 0.6 mg/dL (0.2-1.0); Total Protein 5.9 g/dL (6.4-8.9)
[2021-05-13] MEDS: Insulin GLARGINE 100 un/ml 10 ml VIAL SUBCUT SCH (08:40)
[2021-05-13] MEDS ORDERED: Nicotine GUM 2MG FRUIT FLAVOR PO PRN (13:43)
[2021-05-13] MEDS: Enoxaparin 40 MG/0.4 ML SYR SUBCUT SCH (16:06)
[2021-05-13] MEDS: ELTROMBOPAG 75 MG PO SCH (19:56)
[2021-05-13] MEDS: ELTROMBOPAG 50 MG PO SCH (19:56)
[2021-05-14] MEDS: Insulin GLARGINE 100 un/ml 10 ml VIAL SUBCUT SCH (08:36)
[2021-05-14 08:57] VITALS: BP 122/73
== END 2021-05-14 13:50 | DRG 870 ==
LOC: ED 13:45 → EDHOLD 16:38 → SUATTDRO 16:38 → ICU 19:55 → MED 05-06 12:54
PROVIDERS: ADMIT Internal Medicine; ATTEND Internal Medicine

== ENCOUNTER 2021-06-06 17:10 | Inpatient (IN) ==
[2021-06-06] MEDS ORDERED: Lactated Ringers 1000 ml BAG IV.FLUID IV ONE (17:17)
[2021-06-06] MEDS ORDERED: Cefepime 2 GM in Dextrose 2 GM/50 ML BAG IV ONE (17:45)
[2021-06-06] MEDS ORDERED: LORazepam 2 mg VIAL 1 ml ONE (17:49)
[2021-06-06] MEDS ORDERED: LORazepam 2 mg VIAL 1 ml IV PUSH ONE (17:52)
[2021-06-06] MEDS ORDERED: Vancomycin 1,000 MG in NS 0.9% 250 ml 250 ML IVPB ONE (18:00)
[2021-06-06 18:09] LABS: Venous Bicarbonate HCO3 20.5 mmol/L (24-28)
[2021-06-06 18:16] LABS: Hemoglobin 6.2 g/dL (12.0-16.0)
[2021-06-06 18:17] LABS: Hematocrit 19 % (35-47); Mean Corpuscular HGB Conc 32 g/dL (31-36); Mean Corpuscular Hemoglobin 31 pg (27-31); Mean Corpuscular Volume 97 fL (80-97); Red Cell Distribution Width 21 % (10-15)
[2021-06-06 18:18] LABS: Red Blood Count 1.98 10^6 /uL (3.70-4.87); White Blood Count 2.3 10^3/uL (3.5-10.8)
[2021-06-06 18:23] LABS: Activated Partial Thrombo Time 29.3 seconds (26.0-38.0); INR 1.23 (0.86-1.15)
[2021-06-06 18:29] LABS: Albumin 3.6 g/dL (3.2-5.2); Albumin/Globulin Ratio 1.1 (1-3); Calcium 8.8 mg/dL (8.6-10.3); Globulin 3.4 g/dL (2-4); Total Bilirubin 0.8 mg/dL (0.2-1.0); eGFR CKD-EPI 34.6 (>60)
[2021-06-06 18:31] LABS: Troponin I 0.02 ng/mL (<0.03)
[2021-06-06 18:38] LABS: Potassium 5.4 mmol/L (3.5-5.0)
[2021-06-06 18:50] LABS: Mean Platelet Volume 7.4 fL (7.4-10.4); Platelet Count 65 10^3/uL (150-450)
[2021-06-06 18:51] LABS: ABS Lymphocytes 0.5 10^3/ul (1.0-4.8); ABS Monocytes 0.1 10^3/ul (0-0.8); ABS Neutrophils 1.7 10^3/ul (1.5-7.7); Eosinophil % 0.4 %; Lymphocyte % 21.7 %; Nucleated Red Blood Cells % 0.4
[2021-06-06] MEDS ORDERED: Dexamethasone IV 4 MG/ML VIAL 1 ml VIAL IV SLOW PU ONE (19:05)
[2021-06-06] MEDS ORDERED: Dexamethasone IV 4 MG/ML VIAL 1 ml VIAL ONE (19:33)
[2021-06-06] MEDS ORDERED: Lactated Ringers 1000 ml BAG 1,000 ML IV ONE ×2 (19:49→21:46)
[2021-06-06] MEDS ORDERED: Remdesivir 100 mg Vial 200 MG in NS 0.9% 250 ml 210 ML IV ONE (21:30)
[2021-06-06 21:55] LABS: INR 1.22 (0.86-1.15)
[2021-06-06 22:03] LABS: Albumin 3.2 g/dL (3.2-5.2); Calcium 8.2 mg/dL (8.6-10.3); Globulin 3.3 g/dL (2-4); Total Bilirubin 0.7 mg/dL (0.2-1.0); Total Protein 6.5 g/dL (6.4-8.9); eGFR CKD-EPI 40.2 (>60)
[2021-06-06 22:06] LABS: Potassium 5.3 mmol/L (3.5-5.0)
[2021-06-06 22:25] LABS: Ferritin 704.4 ng/mL (11-307)
[2021-06-06] MEDS: Azithromycin 500 mg/250 ml NS 500 MG/250 ML BAG IVPB SCH (22:34)
[2021-06-06] MEDS ORDERED: Tocilizumab** 800 MG in NS 0.9% 100 ml BAG 60 ML IVPB ONE (23:00)
[2021-06-06] MEDS: Cefepime 2 GM in Dextrose 2 GM/50 ML BAG IV SCH (23:46)
[2021-06-07] MEDS ORDERED: Vancomycin per Pharmacy 1 EA NOTE FOLLOW UP PRN (00:33)
[2021-06-07 01:05] LABS: Urine Appearance Clear; Urine Color Yellow; Urine Specific Gravity 1.015 (1.002-1.030); Urine pH 5 (5-9)
[2021-06-07 01:06] LABS: Urine Bilirubin Negative (Negative); Urine Blood Negative (Negative); Urine Glucose Negative (Negative); Urine Ketones Negative (Negative); Urine Nitrite Negative (Negative); Urine Protein 1+(30 mg/dL) (Negative); Urine Urobilinogen Negative (Negative)
[2021-06-07] MEDS ORDERED: Lactated Ringers 1000 ml BAG 500 ML IV SCH (03:00)
[2021-06-07] MEDS ORDERED: Norepinephrine 16MCG/ML BAG NS 4,000 MCG/250 ML BAG IV SCH (05:00)
[2021-06-07 05:48] LABS: ABS Lymphocytes 0.3 10^3/ul (1.0-4.8); ABS Neutrophils 0.8 10^3/ul (1.5-7.7); Hematocrit 18 % (35-47); Hemoglobin 5.9 g/dL (12.0-16.0); Lymphocyte % 25.1 %; Mean Corpuscular HGB Conc 33 g/dL (31-36); Mean Corpuscular Hemoglobin 31 pg (27-31); Mean Corpuscular Volume 94 fL (80-97); Nucleated Red Blood Cells % 0.6; Platelet Count 46 10^3/uL (150-450); Red Blood Count 1.91 10^6 /uL (3.70-4.87); Red Cell Distribution Width 21 % (10-15); White Blood Count 1.1 10^3/uL (3.5-10.8)
[2021-06-07 05:53] LABS: INR 1.2 (0.86-1.15)
[2021-06-07 06:16] LABS: Albumin 2.5 g/dL (3.2-5.2); Albumin/Globulin Ratio 1.1 (1-3); Calcium 7.4 mg/dL (8.6-10.3); Globulin 2.3 g/dL (2-4); Total Bilirubin 0.7 mg/dL (0.2-1.0); Total Protein 4.8 g/dL (6.4-8.9); eGFR CKD-EPI 69.9 (>60)
[2021-06-07 06:17] LABS: Potassium 5.1 mmol/L (3.5-5.0)
[2021-06-07 06:30] LABS: Urine Color Straw
[2021-06-07 06:31] LABS: Urine Appearance Clear; Urine Blood Negative (Negative); Urine Ketones Negative (Negative); Urine Protein Negative (Negative); Urine Urobilinogen Negative (Negative); Urine pH 5 (5-9)
[2021-06-07 06:32] LABS: Urine Bilirubin Negative (Negative); Urine Glucose Negative (Negative); Urine Nitrite Negative (Negative)
[2021-06-07] MEDS: Dexamethasone IV 4 MG/ML VIAL 1 ml VIAL IV SLOW PU SCH (07:47)
[2021-06-07] MEDS: ELTROMBOPAG 50 MG PO SCH (07:48)
[2021-06-07] MEDS: Cefepime 2 GM in Dextrose 2 GM/50 ML BAG IV SCH (07:48)
[2021-06-07] MEDS: ELTROMBOPAG 75 MG PO SCH (07:49)
[2021-06-07] MEDS ORDERED: Vancomycin 1000 MG in NS 0.9% 250 ML IVPB SCH (08:00)
[2021-06-07] MEDS: Vancomycin 1,000 MG in NS 0.9% 250 ml 250 ML IVPB SCH (08:47)
[2021-06-07] MEDS ORDERED: Piperacillin/Tazobac ADVAN 3.375 GM in NS 0.9% 100 ml BAG 100 ML IV ONE ×2 (09:16→11:00)
[2021-06-07] MEDS ORDERED: Zosyn per Pharmacy NOTE FOLLOW UP SCH (10:00)
[2021-06-07] MEDS ORDERED: Thiamine 100 MG/ML 2 ml VIAL 250 MG in NS 0.9% 100 ml BAG 100 ML IV SCH (11:00)
[2021-06-07 11:39] LABS: Hematocrit 30 % (35-47); Hemoglobin 8.8 g/dL (12.0-16.0)
[2021-06-07] MEDS ORDERED: Perflutren Lipid Microsphere 3 ML VIAL ONE (11:45)
[2021-06-07] MEDS: ZOSYN 3.375 GM Q8H per EXTENDED INFUSION IV SCH ×2 (14:32→22:25)
[2021-06-07] MEDS ORDERED: Dextrose 50% Syringe 50 ml 25 GM/50 ML SYRINGE IV PUSH PRN (18:35)
[2021-06-07] MEDS: Azithromycin 500 mg/250 ml NS 500 MG/250 ML BAG IVPB SCH (20:41)
[2021-06-07] MEDS: Remdesivir 100 mg Vial 100 MG in NS 0.9% 250 ml 230 ML IV SCH (22:25)
[2021-06-08] MEDS ORDERED: Albuterol HFA INHALER 8 gm MDI INH PRN (02:00)
[2021-06-08 05:14] LABS: ABS Lymphocytes 0.4 10^3/ul (1.0-4.8); ABS Monocytes 0.1 10^3/ul (0-0.8); ABS Neutrophils 1.1 10^3/ul (1.5-7.7); Hematocrit 27 % (35-47); Hemoglobin 8.9 g/dL (12.0-16.0); Mean Corpuscular HGB Conc 34 g/dL (31-36); Mean Corpuscular Hemoglobin 31 pg (27-31); Mean Corpuscular Volume 93 fL (80-97); Mean Platelet Volume 7.8 fL (7.4-10.4); Nucleated Red Blood Cells % 0.8; Platelet Count 53 10^3/uL (150-450); Red Blood Count 2.86 10^6 /uL (3.70-4.87); Red Cell Distribution Width 19 % (10-15); White Blood Count 1.7 10^3/uL (3.5-10.8)
[2021-06-08 05:19] LABS: INR 1.17 (0.86-1.15)
[2021-06-08 05:26] LABS: Calcium 8.7 mg/dL (8.6-10.3); Magnesium 1.7 mg/dL (1.9-2.7); Potassium 4.9 mmol/L (3.5-5.0); eGFR CKD-EPI 58.5 (>60)
[2021-06-08] MEDS: ZOSYN 3.375 GM Q8H per EXTENDED INFUSION IV SCH ×3 (06:33→23:38)
[2021-06-08] MEDS ORDERED: Vancomycin Trough Check NOTE FOLLOW UP ONE (07:30)
[2021-06-08] MEDS ORDERED: Lorazepam PYXIS KEY PRN (08:01)
[2021-06-08] MEDS ORDERED: LORazepam 2 mg VIAL 1 ml IV PUSH ONE (08:01)
[2021-06-08] MEDS ORDERED: Lorazepam PYXIS KEY ONE (08:03)
[2021-06-08] MEDS ORDERED: LORazepam 2 mg VIAL 1 ml ONE (08:04)
[2021-06-08] MEDS: Dexamethasone IV 4 MG/ML VIAL 1 ml VIAL IV SLOW PU SCH (08:14)
[2021-06-08] MEDS: ELTROMBOPAG 50 MG PO SCH (08:36)
[2021-06-08] MEDS: ELTROMBOPAG 75 MG PO SCH (08:36)
[2021-06-08] MEDS ORDERED: Furosemide 40 mg/4 ml IV VIAL IV SLOW PU ONE (08:36)
[2021-06-08] MEDS ORDERED: Magnesium Sulfate 2 gm BAG 2 GM/50 ML BAG IVPB ONE (08:37)
[2021-06-08 08:46] LABS: PCO2 Arterial 33 mmHg (35-45)
[2021-06-08 08:48] LABS: PO2 Arterial 50 mmHg (80-100)
[2021-06-08] MEDS ORDERED: Succinylcholine 200 mg VIAL 20 mg/ml 10 ml VIAL (200 mg) ONE (09:16)
[2021-06-08] MEDS ORDERED: Propofol 10 mg/ml 100 ML BTL 100 ML ONE (09:17)
[2021-06-08] MEDS ORDERED: Midazolam 10 mg/10 ml VIAL 1 mg/ml 10 ml VIAL (10 mg) ONE (09:32)
[2021-06-08] MEDS ORDERED: Propofol 10 MG/ML 20 ML BTL ONE (09:32)
[2021-06-08] MEDS: Propofol 10 mg/ml 100 ML BTL 100 ML IV SCH ×3 (09:40→21:36)
[2021-06-08] MEDS: Enoxaparin 40 MG/0.4 ML SYR SUBCUT SCH (12:29)
[2021-06-08] MEDS: Pantoprazole VIAL 40 MG VIAL IV SCH (17:34)
[2021-06-08] MEDS: Chlorhexidine MOUTHWASH 0.12% 15 ML UDC TOPICAL SCH ×2 (17:34→20:48)
[2021-06-08] MEDS: methylPREDNISolone SOD 40 mg/ml 1 ml VIAL IV SCH (18:14)
[2021-06-08 18:29] LABS: PCO2 Arterial 34 mmHg (35-45); PO2 Arterial 83 mmHg (80-100)
[2021-06-08] MEDS: Remdesivir 100 mg Vial 100 MG in NS 0.9% 250 ml 230 ML IV SCH (21:37)
[2021-06-08] MEDS: Azithromycin 500 mg/250 ml NS 500 MG/250 ML BAG IVPB SCH (21:37)
[2021-06-08] MEDS: Cefepime 1 GM in Dextrose 1 GM/50 ML BAG IV SCH (23:00)
[2021-06-09] MEDS: methylPREDNISolone SOD 40 mg/ml 1 ml VIAL IV SCH ×3 (00:51→17:45)
[2021-06-09] MEDS: Chlorhexidine MOUTHWASH 0.12% 15 ML UDC TOPICAL SCH ×6 (00:51→22:07)
[2021-06-09] MEDS ORDERED: Dextrose 50% Syringe 50 ml 25 GM/50 ML SYRINGE IV PUSH PRN (01:03)
[2021-06-09] MEDS ORDERED: Etomidate 20 mg/10 ml 2 MG/ML 10 ml VIAL IV ONE (01:30)
[2021-06-09] MEDS ORDERED: Succinylcholine 200 mg VIAL 20 mg/ml 10 ml VIAL (200 mg) IV ONE (01:30)
[2021-06-09] MEDS: fentaNYL 100 mcg/2 ml 50 MCG/ML VIAL IV SLOW PU PRN ×2 (02:19→14:54)
[2021-06-09] MEDS ORDERED: Propofol 10 mg/ml 100 ML BTL 100 ML IV SCH (04:28)
[2021-06-09 05:23] LABS: Hematocrit 26 % (35-47); Hemoglobin 9.1 g/dL (12.0-16.0); Mean Corpuscular HGB Conc 35 g/dL (31-36); Mean Corpuscular Hemoglobin 32 pg (27-31); Mean Corpuscular Volume 93 fL (80-97); Mean Platelet Volume 7.9 fL (7.4-10.4); Platelet Count 60 10^3/uL (150-450); Red Cell Distribution Width 18 % (10-15); White Blood Count 5.3 10^3/uL (3.5-10.8)
[2021-06-09 05:28] LABS: INR 1.25 (0.86-1.15)
[2021-06-09 05:38] LABS: Calcium 9.1 mg/dL (8.6-10.3); Potassium 4.6 mmol/L (3.5-5.0); eGFR CKD-EPI 52.1 (>60)
[2021-06-09 05:48] LABS: ABS Lymphocytes 0.4 10^3/ul (1.0-4.8); ABS Monocytes 0.5 10^3/ul (0-0.8); ABS Neutrophils 4.3 10^3/ul (1.5-7.7); Lymphocyte % 8.3 %; Nucleated Red Blood Cells % 0.3
[2021-06-09 06:37] LABS: Phosphorus 3.6 mg/dL (2.5-5.0)
[2021-06-09] MEDS: ZOSYN 3.375 GM Q8H per EXTENDED INFUSION IV SCH ×3 (07:30→22:07)
[2021-06-09] MEDS: Enoxaparin 40 MG/0.4 ML SYR SUBCUT SCH (09:06)
[2021-06-09] MEDS: Cefepime 1 GM in Dextrose 1 GM/50 ML BAG IV SCH ×2 (10:15→21:26)
[2021-06-09] MEDS: Midazolam 50 MG VIAL IV DRIP 50 ML IV SCH ×2 (14:00→17:51)
[2021-06-09] MEDS: Pantoprazole VIAL 40 MG VIAL IV SCH (17:45)
[2021-06-09] MEDS: Remdesivir 100 mg Vial 100 MG in NS 0.9% 250 ml 230 ML IV SCH (21:25)
[2021-06-09] MEDS: Azithromycin 500 mg/250 ml NS 500 MG/250 ML BAG IVPB SCH (22:07)
[2021-06-10] MEDS: Chlorhexidine MOUTHWASH 0.12% 15 ML UDC TOPICAL SCH ×6 (00:01→21:19)
[2021-06-10] MEDS: methylPREDNISolone SOD 40 mg/ml 1 ml VIAL IV SCH ×3 (02:59→17:34)
[2021-06-10 05:43] LABS: ABS Lymphocytes 0.6 10^3/ul (1.0-4.8); ABS Monocytes 0.3 10^3/ul (0-0.8); ABS Neutrophils 4.7 10^3/ul (1.5-7.7); Hematocrit 26 % (35-47); Hemoglobin 8.6 g/dL (12.0-16.0); Mean Corpuscular HGB Conc 34 g/dL (31-36); Mean Corpuscular Hemoglobin 31 pg (27-31); Mean Corpuscular Volume 92 fL (80-97); Mean Platelet Volume 7.8 fL (7.4-10.4); Nucleated Red Blood Cells % 0.6; Platelet Count 51 10^3/uL (150-450); Red Blood Count 2.79 10^6 /uL (3.70-4.87); Red Cell Distribution Width 18 % (10-15); White Blood Count 5.5 10^3/uL (3.5-10.8)
[2021-06-10 06:00] LABS: Calcium 9.3 mg/dL (8.6-10.3); Potassium 4.2 mmol/L (3.5-5.0); eGFR CKD-EPI 66.5 (>60)
[2021-06-10 06:04] LABS: INR 1.2 (0.86-1.15)
[2021-06-10] MEDS: ZOSYN 3.375 GM Q8H per EXTENDED INFUSION IV SCH ×3 (07:01→21:18)
[2021-06-10] MEDS: fentaNYL 100 mcg/2 ml 50 MCG/ML VIAL IV SLOW PU PRN ×6 (08:57→23:37)
[2021-06-10] MEDS: Enoxaparin 40 MG/0.4 ML SYR SUBCUT SCH (09:13)
[2021-06-10] MEDS: Cefepime 1 GM in Dextrose 1 GM/50 ML BAG IV SCH ×2 (09:34→21:19)
[2021-06-10 11:03] LABS: PCO2 Arterial 33 mmHg (35-45); PO2 Arterial 97 mmHg (80-100)
[2021-06-10] MEDS: Midazolam 50 MG VIAL IV DRIP 50 ML IV SCH ×3 (11:41→23:38)
[2021-06-10] MEDS: Pantoprazole VIAL 40 MG VIAL IV SCH (16:33)
[2021-06-10] MEDS: Remdesivir 100 mg Vial 100 MG in NS 0.9% 250 ml 230 ML IV SCH (21:19)
[2021-06-10] MEDS ORDERED: Dexmedetomidine 1,000 MCG in NS 0.9% 250 ml 240 ML IV SCH (22:00)
[2021-06-11] MEDS: Azithromycin 500 mg/250 ml NS 500 MG/250 ML BAG IVPB SCH ×2 (00:26→20:27)
[2021-06-11] MEDS: Chlorhexidine MOUTHWASH 0.12% 15 ML UDC TOPICAL SCH ×4 (00:45→12:20)
[2021-06-11] MEDS: fentaNYL 100 mcg/2 ml 50 MCG/ML VIAL IV SLOW PU PRN ×4 (01:02→07:47)
[2021-06-11] MEDS: methylPREDNISolone SOD 40 mg/ml 1 ml VIAL IV SCH ×3 (02:01→17:13)
[2021-06-11 04:27] LABS: ABS Lymphocytes 0.7 10^3/ul (1.0-4.8); ABS Monocytes 0.3 10^3/ul (0-0.8); ABS Neutrophils 3.3 10^3/ul (1.5-7.7); ABS Nucleated RBC 0.1 10^3/ul; Hematocrit 27 % (35-47); Lymphocyte % 16.7 %; Mean Corpuscular HGB Conc 33 g/dL (31-36); Mean Corpuscular Hemoglobin 31 pg (27-31); Mean Corpuscular Volume 92 fL (80-97); Nucleated Red Blood Cells % 1.9; Platelet Count 55 10^3/uL (150-450); Red Blood Count 2.92 10^6 /uL (3.70-4.87); Red Cell Distribution Width 18 % (10-15); White Blood Count 4.4 10^3/uL (3.5-10.8)
[2021-06-11 04:31] LABS: INR 1.16 (0.86-1.15)
[2021-06-11 04:42] LABS: Calcium 9.3 mg/dL (8.6-10.3); Magnesium 1.8 mg/dL (1.9-2.7); Potassium 4.4 mmol/L (3.5-5.0); eGFR CKD-EPI 66.5 (>60)
[2021-06-11] MEDS: Midazolam 50 MG VIAL IV DRIP 50 ML IV SCH ×2 (05:18→11:09)
[2021-06-11] MEDS: ZOSYN 3.375 GM Q8H per EXTENDED INFUSION IV SCH ×3 (06:21→22:37)
[2021-06-11] MEDS ORDERED: Magnesium Sulfate 2 gm BAG 2 GM/50 ML BAG IVPB ONE (07:18)
[2021-06-11] MEDS: Enoxaparin 40 MG/0.4 ML SYR SUBCUT SCH (09:29)
[2021-06-11] MEDS ORDERED: Propofol 10 MG/ML 20 ML BTL ONE (09:30)
[2021-06-11] MEDS: Cefepime 1 GM in Dextrose 1 GM/50 ML BAG IV SCH ×2 (09:55→20:27)
[2021-06-11] MEDS ORDERED: Propofol 10 MG/ML 20 ML BTL IV PUSH ONE (11:03)
[2021-06-11] MEDS: Pantoprazole VIAL 40 MG VIAL IV SCH (16:23)
[2021-06-12] MEDS: methylPREDNISolone SOD 40 mg/ml 1 ml VIAL IV SCH ×2 (01:14→08:55)
[2021-06-12 05:05] LABS: ABS Lymphocytes 0.8 10^3/ul (1.0-4.8); ABS Monocytes 0.3 10^3/ul (0-0.8); ABS Neutrophils 3.4 10^3/ul (1.5-7.7); ABS Nucleated RBC 0.1 10^3/ul; Eosinophil % 0.1 %; Hematocrit 30 % (35-47); Hemoglobin 9.9 g/dL (12.0-16.0); Lymphocyte % 18.1 %; Mean Corpuscular HGB Conc 34 g/dL (31-36); Mean Corpuscular Hemoglobin 31 pg (27-31); Mean Corpuscular Volume 91 fL (80-97); Nucleated Red Blood Cells % 2.6; Platelet Count 63 10^3/uL (150-450); Red Blood Count 3.24 10^6 /uL (3.70-4.87); Red Cell Distribution Width 17 % (10-15); White Blood Count 4.6 10^3/uL (3.5-10.8)
[2021-06-12 05:15] LABS: Magnesium 1.8 mg/dL (1.9-2.7); Potassium 3.8 mmol/L (3.5-5.0); eGFR CKD-EPI 76.7 (>60)
[2021-06-12] MEDS: ZOSYN 3.375 GM Q8H per EXTENDED INFUSION IV SCH ×3 (06:12→21:58)
[2021-06-12] MEDS ORDERED: Potassium Chlor 20 meq TAB.ER PO ONE (07:37)
[2021-06-12] MEDS ORDERED: Magnesium Sulfate 2 gm BAG 2 GM/50 ML BAG IVPB ONE (07:37)
[2021-06-12] MEDS: Enoxaparin 40 MG/0.4 ML SYR SUBCUT SCH (08:50)
[2021-06-12] MEDS: Pantoprazole VIAL 40 MG VIAL IV SCH (16:23)
[2021-06-13] MEDS: ZOSYN 3.375 GM Q8H per EXTENDED INFUSION IV SCH (05:56)
[2021-06-13 08:17] LABS: Hematocrit 27 % (35-47); Hemoglobin 9.4 g/dL (12.0-16.0); Mean Corpuscular HGB Conc 35 g/dL (31-36); Mean Corpuscular Hemoglobin 32 pg (27-31); Mean Corpuscular Volume 92 fL (80-97); Mean Platelet Volume 8.4 fL (7.4-10.4); Platelet Count 60 10^3/uL (150-450); Red Blood Count 2.96 10^6 /uL (3.70-4.87); Red Cell Distribution Width 18 % (10-15); White Blood Count 2.3 10^3/uL (3.5-10.8)
[2021-06-13] MEDS: Enoxaparin 40 MG/0.4 ML SYR SUBCUT SCH (08:30)
[2021-06-13] MEDS: methylPREDNISolone SOD 40 mg/ml 1 ml VIAL IV SCH (08:30)
[2021-06-13 08:34] LABS: Calcium 8.9 mg/dL (8.6-10.3); Magnesium 1.8 mg/dL (1.9-2.7); eGFR CKD-EPI 86.1 (>60)
[2021-06-13 08:48] LABS: Potassium 3.7 mmol/L (3.5-5.0)
[2021-06-13] MEDS ORDERED: Magnesium Sulfate 2 gm BAG 2 GM/50 ML BAG IVPB ONE (08:52)
[2021-06-13 09:14] LABS: ABS Lymphocytes 0.8 10^3/ul (1.0-4.8); ABS Monocytes 0.2 10^3/ul (0-0.8); ABS Neutrophils 1.3 10^3/ul (1.5-7.7); Lymphocyte % 34.3 %; Nucleated Red Blood Cells % 1.5
[2021-06-13] MEDS: Pantoprazole VIAL 40 MG VIAL IV SCH (17:34)
[2021-06-14] MEDS: Enoxaparin 40 MG/0.4 ML SYR SUBCUT SCH (08:38)
[2021-06-14 10:34] LABS: Hematocrit 32 % (35-47); Hemoglobin 10.7 g/dL (12.0-16.0); Mean Corpuscular HGB Conc 34 g/dL (31-36); Mean Corpuscular Hemoglobin 31 pg (27-31); Mean Corpuscular Volume 91 fL (80-97); Mean Platelet Volume 7.4 fL (7.4-10.4); Platelet Count 60 10^3/uL (150-450); Red Blood Count 3.48 10^6 /uL (3.70-4.87); Red Cell Distribution Width 18 % (10-15)
[2021-06-14 10:42] LABS: Calcium 9.4 mg/dL (8.6-10.3); Magnesium 1.7 mg/dL (1.9-2.7); eGFR CKD-EPI 96.3 (>60)
[2021-06-14] MEDS ORDERED: Magnesium Sulfate IV 3 GM in NS 0.9% 100 ml BAG 100 ML IVPB ONE (10:46)
[2021-06-14 11:04] LABS: ABS Lymphocytes 0.6 10^3/ul (1.0-4.8); ABS Monocytes 0.4 10^3/ul (0-0.8); ABS Neutrophils 7.9 10^3/ul (1.5-7.7); Eosinophil % 0.5 %; Nucleated Red Blood Cells % 0.3
[2021-06-14] MEDS: Potassium Chlor 20 meq TAB.ER PO SCH ×3 (11:59→17:39)
[2021-06-14] MEDS: Pantoprazole VIAL 40 MG VIAL IV SCH (16:19)
[2021-06-15 07:06] LABS: ABS Monocytes 0.3 10^3/ul (0-0.8); ABS Neutrophils 6.7 10^3/ul (1.5-7.7); Eosinophil % 0.3 %; Hematocrit 30 % (35-47); Hemoglobin 10.1 g/dL (12.0-16.0); Lymphocyte % 11.9 %; Mean Corpuscular HGB Conc 34 g/dL (31-36); Mean Corpuscular Hemoglobin 32 pg (27-31); Mean Corpuscular Volume 95 fL (80-97); Mean Platelet Volume 8.2 fL (7.4-10.4); Nucleated Red Blood Cells % 0.1; Platelet Count 66 10^3/uL (150-450); Red Blood Count 3.14 10^6 /uL (3.70-4.87); Red Cell Distribution Width 19 % (10-15)
[2021-06-15 07:18] LABS: Calcium 9.5 mg/dL (8.6-10.3); Potassium 3.8 mmol/L (3.5-5.0); eGFR CKD-EPI 97.9 (>60)
[2021-06-15] MEDS: Enoxaparin 40 MG/0.4 ML SYR SUBCUT SCH (09:48)
[2021-06-15] MEDS: Pantoprazole VIAL 40 MG VIAL IV SCH (17:40)
[2021-06-16 05:37] LABS: ABS Monocytes 0.2 10^3/ul (0-0.8); ABS Neutrophils 5.8 10^3/ul (1.5-7.7); Eosinophil % 0.3 %; Hematocrit 30 % (35-47); Lymphocyte % 13.5 %; Mean Corpuscular HGB Conc 33 g/dL (31-36); Mean Corpuscular Hemoglobin 32 pg (27-31); Mean Corpuscular Volume 96 fL (80-97); Mean Platelet Volume 7.5 fL (7.4-10.4); Nucleated Red Blood Cells % 0.2; Platelet Count 65 10^3/uL (150-450); Red Blood Count 3.11 10^6 /uL (3.70-4.87); Red Cell Distribution Width 20 % (10-15)
[2021-06-16 05:45] LABS: Calcium 9.2 mg/dL (8.6-10.3); eGFR CKD-EPI 87.4 (>60)
[2021-06-16] MEDS: Enoxaparin 40 MG/0.4 ML SYR SUBCUT SCH (10:39)
[2021-06-16 11:51] VITALS: BP 134/70
== END 2021-06-16 16:50 | disposition home health service (06) | DRG 208 ==
LOC: ED 17:10 → ICU 21:15 → SUATTDRO 21:21 → MED 06-12 16:09
PROVIDERS: ADMIT Internal Medicine; ATTEND Hospitalist